=== PATIENT | male | born 1940 | race Caucasian/White ===

== ENCOUNTER 2016-12-17 16:14 | Emergency (ER) | payer OTHER, BC ==
[~2016-12-17] VITALS: Ht 188 cm; Wt 106.8 kg
[~2016-12-17 16:14] MED LIST: ALBU18002 INH; ALPR0.5T PO; CLON0.2T PO; FELO1TAB7 PO; FOLI1TAB7 PO; LISI-788 PO; METH15TA2 PO; OXYC-57 PO; [UNRECOGNIZED DRUG - CODE] PO
[2016-12-17 16:21] VITALS: BP 148/84; PULSE 55; TEMP 36.5; O2SAT 94; Ht 188 cm; Wt 106.8 kg
[2016-12-17] MEDS ORDERED: OXYCODONE HCL IR 5 MG TAB (IMMEDIATE RELEASE) PO STA ×2 (16:40→17:58)
--- NOTE | 2016-12-17 16:41 | EMERGENCY ROOM VISIT NOTE ---
History First contact with patient: 16:30 Chief Complaint: FALL Stated Complaint: FELL,POSSIBLE BROKEN RIBS History of Present Illness The patient is a 76 year old male who presents to the Emergency Room via private vehicle coming by with complaints of "fell, possible broken ribs". Patient states that earlier today he was at [place] and missed a curb when stepping down. He states that he then fell onto his left side and points to his left lateral rib cage as a location of the pain. He rates the pain as a 10/ 10. He denies any headache, neck pain, loss of consciousness, chest pain, shortness of breath, abdominal pain. Patient also points to small bruise on the ventral aspect of the left proximal hand but notes no pain. Review of Systems A complete 10-point Review of Systems was discussed with the patient, with pertinent positives and negatives listed in the History of Present Illness. All remaining Review of Systems questions can be considered negative unless otherwise specified. Past Medical/Surgical History Medical Problems: (1) A-fib (2) Anemia (3) Asthma (4) Atrial fibrillation (5) Atrial flutter (6) RA (rheumatoid arthritis) Family History FH: Alzheimers disease FHx: cancer FHx: heart disease Hypertension Social History Smoking Status: Never Smoker Drug Use: none Marital Status: Housing Status: lives with significant other Occupation Status: retired Current/Historical Medications Scheduled Alprazolam (Xanax), 0.5 MG PO PRN Clonidine Hcl (Catapres), 1 TAB PO BID Felodipine (Plendil), 2.5 MG PO HS Folic Acid (Folvite), 1 MG PO DAILY Lisinopril/Hctz (Zestoretic 20MG/25MG), 0.5 TAB PO DAILY Methotrexate (Trexall), 15 MG PO WK Nizatidine (Axid *), 150 MG PO DHS Scheduled PRN Albuterol Sulfate (Proair Respiclick), 2 PUFFS INH UD PRN for Wheezing Oxycodone/Acetaminophen 5MG/325MG (Percocet 5MG/325MG), 1 TABLET PO UD PRN for Pain Allergies Coded Allergies: NSAIDs (Verified Allergy, Severe, BLEEDING, 10/01/16) Latex (Verified Allergy, Intermediate, REDNESS ON SKIN, 10/01/16) Aspirin (Verified Adverse Reaction, Severe, BLEEDING, 10/01/16) Physical Exam Vital Signs Date Time Temp Pulse Resp B/P Pulse Ox O2 Delivery O2 Flow Rate FiO2 12/17/16 16:21 36.5 55 18 148/84 94 Room Air Physical Exam VITAL SIGNS - Vital signs and nursing notes were reviewed. Patient is afebrile , hypertensive at 140/84, non-tachycardic and saturating well on room air is 94% . GENERAL -76-year-old male appearing his stated age who is in no acute distress. Communicates well with provider and answers questions appropriately. SKIN - Without rashes. No breaks in the integument. HEAD - NC/AT. No evidence of trauma to the head. EYES - PERRL with EOMI bilaterally. Sclera anicteric. Palpebral conjunctiva pink and moist with no injection noted. EARS - No deformities of external structures noted on gross examination bilaterally. No hemotympanum. NOSE - Midline and without cyanosis. No epistaxis or purulent drainage noted. NECK - Neck with FROM. Supple to palpation. No lymphadenopathy noted. No nuchal rigidity. No C-spine tenderness. No thoracic or lumbar spinous processes tenderness. LUNGS - Chest wall symmetric without accessory muscle use, intercostals retractions, or central cyanosis. Normal vesicular breath sounds CTA B/L. No wheezes, rales, or rhonchi appreciated. CARDIAC - RRR with S1/S2. No murmur, rubs, or gallops appreciated. ABDOMEN - Abdominal contour without pulsations or visible masses. BS normoactive all four quadrants. No tenderness, palpable masses, hepatosplenomegaly, or ascites noted. There was slight tenderness to the left inguinal region, favoring the left thigh. Genitalia exam unremarkable. EXTREMITIES - No clubbing or peripheral cyanosis. No pretibial edema present. As early intact in the extremities. +5/5 strength noted in UE/LE bilaterally. Patient is able to axial load. No tenderness with pelvic rock. No hip tenderness. NEUROLOGIC - Cranial nerves II through XII grossly intact. Sensory intact to light touch throughout. Medical Decision & Procedures ER Provider Diagnostic Interpretation: PELVIS 1 OR 2 VIEW ROUTINE CLINICAL HISTORY: Left groin pain COMPARISON STUDY: None. FINDINGS: No fracture or dislocation within the pelvis or hips. The sacrum is intact. Soft tissues are unremarkable. Mild osteoarthritis within the bilateral hips. IMPRESSION: No fracture or dislocation within the pelvis or hips. Electronically signed by: Bobby Bobo M.D. 12/17/2016 7:18 PM Dictated Date/Time: 12/17/2016 7:16 PM LEFT RIBS UNILATERAL WITH PA CHEST CLINICAL HISTORY: Left rib pain s/p fall COMPARISON STUDY: Chest 10/01/2016. 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 The heart is stable in size. The lungs are clear. No pleural effusions. No pneumothorax. There is a nondisplaced left anterolateral ninth rib fracture IMPRESSION: Nondisplaced left ninth rib fracture. No pneumothorax. Electronically signed by: Bobby Bobo M.D. 12/17/2016 6:09 PM Dictated Date/Time: 12/17/2016 6:06 PM Medications Administered Medications (Trade) Dose Ordered Sig/Mara Route Start Time Stop Time Status Last Admin Dose Admin Oxycodone HCl (Roxicodone Immediate Rel Tab) 5 mg NOW STAT PO 12/17/16 16:40 12/17/16 16:41 DC 12/17/16 17:28 5 MG Oxycodone HCl (Roxicodone Immediate Rel Tab) 5 mg NOW STAT PO 12/17/16 17:58 12/17/16 17:59 DC 12/17/16 18:19 5 MG Medical Decision Patient was seen and evaluated as above. After obtaining a thorough history and physical examination radiographs was obtained of the anterior chest as well as left rib cage. Patient was given 1 OxyIR for his pain, and then reevaluated and noted to be chronically taking opioids for his RA and was given another 5 mg. He was then also evaluated by my attending. The decision was made to add a pelvis view as the patient complained of new onset left groin pain. He did consent to a genitalia exam which was unremarkable. There was reproducible palpation overlying the left medial superior thigh in the left groin. Consistent with a likely pulled muscle in this region. Pelvis radiograph negative for acute injury. Ribs revealed an acute nondisplaced ninth rib fracture. Patient was educated upon these findings and given an incentive spirometer. He was educated upon management and noted to have a chronic prescription for pain meds therefore declined any today. He is to follow-up with his family doctor for the ribs and given the number for administrative specialist for the groin injury. He was educated upon management, had questions answered prior to discharge, was educated upon worrisome symptoms in which to return and was discharged home with driving in good condition. In the evaluation treatment this patient following differential diagnoses were entertained: Rib fracture, pneumothorax, contusion, testicular hernia, genital abnormalities, pulled muscle, among others. I do not suspect any emergent cause of the patient's pain at this time. [place] Drug Monitoring Program Search Results: patient reviewed within database, no issues identified Impression Primary Impression: Fall Additional Impressions: Left groin pain Left rib fracture Departure Information Dispostion Home / Self-Care Condition GOOD Referrals Misael Zeng M.D. (PCP) Emilio Thorne M.D. Patient Instructions My [facility] Additional Instructions You have been treated in the Emergency Department for left rib fracture and left groin pain. You have received pain medicine in the emergency department which impairs your ability to operate a vehicle. It is illegal for you to drive after receiving these medicines. You may continue your prescribed pain medication For pain control, you can use the following [id number] medicines (if >12 yo): - Regular strength (325mg/tab) Tylenol (acetaminophen) 2 tabs every 4-6 hours as needed. Do not exceed 12 tablets in a 24 hour period. Avoid taking more than 4 grams (4000 mg) of Tylenol per day. This includes any other sources of acetaminophen you may take on a regular basis. If this is an acute injury, ice can be applied to the area of pain for the first 3 days to help decrease pain and inflammation. After the first 3 days, a heating pad can be used over the area for continued soothing relief. To minimize your discomfort, you can hug a pillow while coughing or sneezing. Additionally, you should continue to force yourself to take nice, deep breaths. Full expansion of the lungs is necessary to prevent the accumulation of fluid in the lung tissue and development of pneumonia. You should schedule a follow-up appointment with your orthopedic surgeon regarding your left groin pain. Please also schedule follow-up with your family doctor for your rib fracture. Please use the Incentive Spirometer several times per hour while awake to help prevent the development of pneumonia. Return to the Emergency Department if your current symptoms worsen despite treatment course outlined above, or if you develop any of the following symptoms : intractable pain despite aforementioned treatment course, development of a wet cough, bloody cough, fever, chills, or increased shortness of breath. Problem Qualifiers
--- NOTE | 2016-12-17 18:00 | EMERGENCY ROOM VISIT NOTE ---
ED Visit Note First contact with patient: 16:30 I have seen and examined this patient with Pipe Hernandez and generally agree with the treatment plan as discussed. Problem List Medical Problems: (1) A-fib Status: Resolved (2) Anemia Status: Resolved (3) Asthma Status: Chronic (4) RA (rheumatoid arthritis) Status: Chronic Current/Historical Medications Scheduled Alprazolam (Xanax), 0.5 MG PO PRN Clonidine Hcl (Catapres), 1 TAB PO BID Felodipine (Plendil), 2.5 MG PO HS Folic Acid (Folvite), 1 MG PO DAILY Lisinopril/Hctz (Zestoretic 20MG/25MG), 0.5 TAB PO DAILY Methotrexate (Trexall), 15 MG PO WK Nizatidine (Axid *), 150 MG PO DHS Scheduled PRN Albuterol Sulfate (Proair Respiclick), 2 PUFFS INH UD PRN for Wheezing Oxycodone/Acetaminophen 5MG/325MG (Percocet 5MG/325MG), 1 TABLET PO UD PRN for Pain Allergies Coded Allergies: NSAIDs (Verified Allergy, Severe, BLEEDING, 10/01/16) Latex (Verified Allergy, Intermediate, REDNESS ON SKIN, 10/01/16) Aspirin (Verified Adverse Reaction, Severe, BLEEDING, 10/01/16) Vital Signs Date Time Temp Pulse Resp B/P Pulse Ox O2 Delivery O2 Flow Rate FiO2 12/17/16 16:21 36.5 55 18 148/84 94 Room Air Medications Administered Medications (Trade) Dose Ordered Sig/Mara Route Start Time Stop Time Status Last Admin Dose Admin Oxycodone HCl (Roxicodone Immediate Rel Tab) 5 mg NOW STAT PO 12/17/16 16:40 12/17/16 16:41 DC 12/17/16 17:28 5 MG Departure Information Referrals Misael Zeng M.D. (PCP) Patient Instructions My [facility]
--- NOTE | 2016-12-17 18:10 | DIAGNOSTIC IMAGING REPORT ---
LEFT RIBS UNILATERAL WITH PA CHEST CLINICAL HISTORY: Left rib pain s/p fall COMPARISON STUDY: Chest 10/01/2016. 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 The heart is stable in size. The lungs are clear. No pleural effusions. No pneumothorax. There is a nondisplaced left anterolateral ninth rib fracture IMPRESSION: Nondisplaced left ninth rib fracture. No pneumothorax. Electronically signed by: Bobby Bobo M.D. 12/17/2016 6:09 PM Dictated Date/Time: 12/17/2016 6:06 PM
--- NOTE | 2016-12-17 19:19 | DIAGNOSTIC IMAGING REPORT ---
PELVIS 1 OR 2 VIEW ROUTINE CLINICAL HISTORY: Left groin pain COMPARISON STUDY: None. FINDINGS: No fracture or dislocation within the pelvis or hips. The sacrum is intact. Soft tissues are unremarkable. Mild osteoarthritis within the bilateral hips. IMPRESSION: No fracture or dislocation within the pelvis or hips. Electronically signed by: Bobby Bobo M.D. 12/17/2016 7:18 PM Dictated Date/Time: 12/17/2016 7:16 PM
[2017-03-25] MEDS ORDERED: OXYC1TAB3 PO (04:38)
== END 2016-12-17 19:53 | disposition home or self-care (01) ==
LOC: C.EDB 16:15 → C.EDD 19:53
DX: S22.32XA Fracture of one rib, left side, initial encounter for closed fracture (principal); R10.30 Lower abdominal pain, unspecified; I48.91 Unspecified atrial fibrillation; M06.9 Rheumatoid arthritis, unspecified; J45.909 Unspecified asthma, uncomplicated; W10.1XXA Fall (on)(from) sidewalk curb, initial encounter; Z79.899 Other long term (current) drug therapy; Z88.6 Allergy status to analgesic agent; Z91.040 Latex allergy status; Z82.0 Family history of epilepsy and other diseases of the nervous system; Z82.49 Family history of ischemic heart disease and other diseases of the circulatory system

== ENCOUNTER 2017-02-11 19:03 | Emergency (ER) | payer OTHER, BC ==
[~2017-02-11] VITALS: Ht 188 cm; Wt 107.2 kg
[2017-02-11 19:12] VITALS: TEMP 36.6; Ht 188 cm; Wt 107.2 kg
--- NOTE | 2017-02-11 20:25 | EMERGENCY ROOM VISIT NOTE ---
ED Visit Note First contact with patient: 19:22 Staff note: I have reviewed the Patients chart and have discussed this case with my PA. I generally agree with the ED note and findings.
[2017-02-11 20:31] VITALS: BP 152/82; PULSE 55; O2SAT 95
[2017-02-11] MEDS ORDERED: LISI20TA3 PO (20:34)
[2017-02-11] MEDS ORDERED: SENN-61 PO (20:34)
[2017-02-11] MEDS ORDERED: AMIO200T4 PO (20:34)
[2017-02-11] MEDS ORDERED: NIZA150C3 PO (20:38)
--- NOTE | 2017-02-11 20:42 | EMERGENCY ROOM VISIT NOTE ---
ED Visit Note First contact with patient: 19:22 CHIEF COMPLAINT: Right lower leg pain 3 weeks HISTORY OF PRESENT ILLNESS: Patient is a 76-year-old white male who presents emergency department for evaluation of right lower leg pain 3-3 and half weeks. His initial injury occurred around January 18. He states that he swung his legs out of bed like he normally does, and went to stand and had an acute sharp knifelike pain in the lateral aspect of the right leg. He was seen at [facility] and diagnosed with a strain. He was referred to physical therapy. He has been going 3 times weekly for the last 3-1/2 weeks. He reports multiple modalities including stretching, massage and manipulation, ice and heat therapy in addition to taping. He is on Percocet 10 mg tablets and is using 2-3 tablets daily for his pain. He states that the pain is severe when he wakes up in the morning, improved slightly throughout the day, then worsened again in the evening. He is frustrated because he feels like he "starts over at square one every morning." He feels like he should be getting better. He has seen his primary care provider who have encouraged him to follow with orthopedics. He reports that he cannot get into see his established orthopedic surgeon, Dr. Thorne until his standing appointment in April. They are traveling to [place] next Monday and are concerned about his ability to travel. REVIEW OF SYSTEMS: Review of systems as per HPI. All other systems reviewed were negative. At least 6 systems reviewed. PMH: Electronic medical records are reviewed and summarized as above/below. See Problem List. SOCIAL HISTORY: Patient lives at home with his . He does not smoke, is retired.. PHYSICAL EXAM: Vital Signs: Reviewed Nurse's notes. CONSTITUTIONAL: Patient is a well-appearing 76-year-old white male who is awake and alert and laying on the gurney in no acute distress. EXTREMITIES: Examination of the right lower extremity show taping to the lateral aspect of the calf. Trace pitting edema is noted in the ferro and pretibial area. There is no ankle joint or knee joint effusion palpable. Knee is nontender to palpation and range of motion is full. Ankle is nontender to palpation and range of motion is full. There is no reproducible tenderness along the lateral aspect of the right tib-fib region. The calves are soft and nontender. No palpable cords. No erythema, cyanosis, rashes or lesions. Pulses equal bilaterally. Normal gait. EMERGENCY DEPARTMENT COURSE: The patient was seen and evaluated as above. Old records were reviewed. I was able to discuss the patient with his orthopedic surgeon, Dr. Thorne, who was on-call for the emergency department. He suspected tendinitis and recommended a Medrol Dosepak. I discussed this with the patient and he then acknowledge that he had forgotten to mention that his primary care provider, Dr. Zeng, had provided him with a prescription for prednisone which he took about a week ago without relief of his symptoms. The patient's mechanism of injury is not consistent with trauma and it was felt that fracture was unlikely and that radiographs would be of limited benefit. His presentation is also not consistent with DVT or other vascular process and ultrasound was also felt to be unnecessary at this time. Expected management of his expected soft tissue injury including sprain, strain or tendinitis was discussed with him at length. I do not suspect lumbar radiculopathy. He was encouraged to continue his Percocet as prescribed. He has crutches at home that he can use. They apparently also had a walking boot which he can try. He was encouraged to follow up with [facility] on Monday for further care and evaluation. The patient expressed understanding of this and was agreeable. He was discharged home with his in good condition. Problem List Medical Problems: (1) A-fib Status: Resolved (2) Anemia Status: Resolved (3) Asthma Status: Chronic (4) Atrial fibrillation Status: Resolved (5) Atrial flutter Status: Resolved (6) Dyspnea on exertion Status: Resolved (7) Fall Status: Resolved (8) Generalized weakness Status: Resolved (9) Hypertension Status: Chronic (10) Left groin pain Status: Resolved (11) Left rib fracture Status: Resolved (12) Pharyngitis Status: Resolved (13) RA (rheumatoid arthritis) Status: Chronic (14) Symptomatic bradycardia Status: Resolved Current/Historical Medications Scheduled Alprazolam (Xanax), 0.5 MG PO PRN Amiodarone Hcl (Cordarone), 200 MG PO DAILY Clonidine Hcl (Catapres), 1 TAB PO BID Felodipine (Plendil), 2.5 MG PO HS Folic Acid (Folvite), 1 MG PO DAILY Lisinopril (Prinivil), 20 MG PO QAM Lisinopril/Hctz (Zestoretic 20MG/25MG), 0.5 TAB PO DAILY Methotrexate (Trexall), 15 MG PO WK Nizatidine (Nizatidine), 150 MG PO HS Senna (Senokot), 1 TAB PO DAILY Scheduled PRN Albuterol Sulfate (Proair Respiclick), 2 PUFFS INH UD PRN for Wheezing Oxycodone/Acetaminophen 5MG/325MG (Percocet 5MG/325MG), 1 TABLET PO UD PRN for Pain Allergies Coded Allergies: NSAIDs (Verified Allergy, Severe, BLEEDING, 02/11/17) Latex (Verified Allergy, Intermediate, REDNESS ON SKIN, 02/11/17) Aspirin (Verified Adverse Reaction, Severe, BLEEDING, 02/11/17) Vital Signs Date Time Temp Pulse Resp B/P Pulse Ox O2 Delivery O2 Flow Rate FiO2 02/11/17 20:31 55 16 152/82 95 Room Air 02/11/17 19:12 36.6 66 18 168/84 97 Room Air Departure Information Impression Primary Impression: Leg pain, right Referrals Misael Zeng M.D. (PCP) Patient Instructions My [facility] Additional Instructions Continue current medications. Keep your physical therapy appointments as scheduled. Use your crutches or walking boot if desired. Rest and elevate your injury. Call [facility] on Monday to arrange a follow-up appointment.
[2017-03-25] MEDS ORDERED: OXYC1TAB3 PO (04:38)
== END 2017-02-11 20:50 | disposition home or self-care (01) ==
LOC: C.EDB 19:04 → C.EDD 20:50
DX: M79.604 Pain in right leg (principal); J45.909 Unspecified asthma, uncomplicated; I10 Essential (primary) hypertension; M06.9 Rheumatoid arthritis, unspecified

== ENCOUNTER → 2017-03-13 | Outpatient (CLI) | payer OTHER, BC ==
[~2017-03-13] MED LIST changes: +AMIO200T4 PO; +LISI20TA3 PO; +NIZA150C3 PO; +OXYC1TAB3 PO; +SENN-61 PO; -[UNRECOGNIZED DRUG - CODE] PO
== END | disposition home or self-care (01) ==
LOC: C.RDSM 08:00
PROVIDERS: ATTEND Physical Medicine & Rehabilitation Sports Medicine
DX: M17.0 Bilateral primary osteoarthritis of knee (principal)

== ENCOUNTER → 2017-03-14 | Outpatient (CLI) | payer OTHER, BC ==
[2017-03-14 12:29] LABS: BASO % 0.1 %; BASO ABS # 0.01 K/uL (0-0.2); COMPLETE YES; HEMATOCRIT 43.2 % (42-52); IG% 0.3 %; LYMPH % 4.1 %; MEAN CELL VOLUME 90.2 fL (80-100); MEAN CORPUSCULAR HEMOGLOBIN 29.6 pg (25-34); MEAN CORPUSCULAR HGB CONC 32.9 g/dl (32-36); MEAN PLATELET VOLUME 11.4 fL (7.4-10.4); MONO % 4.9 %; NEUT % 90.6 %; PLATELET COUNT 298 K/uL (130-400); RED BLOOD COUNT 4.79 M/uL (4.7-6.1); WHITE BLOOD COUNT 19.34 K/uL (4.8-10.8)
[2017-03-14 13:05] LABS: ALT/SGPT 22 U/L (12-78); AST/SGOT 18 U/L (15-37); BLOOD UREA NITROGEN 13 mg/dl (7-18); BUN/CREATININE RATIO 11.7 (10-20); CALCIUM 8.7 mg/dl (8.5-10.1); CARBON DIOXIDE 31 mmol/L (21-32); CHLORIDE 102 mmol/L (98-107); GLUCOSE 140 mg/dl (70-99); POTASSIUM 3.9 mmol/L (3.5-5.1); SODIUM 139 mmol/L (136-145)
[2017-03-14 13:17] LABS: ALB/GLOB RATIO 1.1 (0.9-2); ALKALINE PHOSPHATASE 64 U/L (45-117); CHOLESTEROL 213 mg/dl (0-200); CHOLESTEROL/HDL RATIO 2.4; HDL CHOLESTEROL 89 mg/dl; LDL CHOLESTEROL CALCULATED 109 mg/dl; THYROID STIMULATING HORMONE 0.558 uIu/ml (0.300-4.500); TRIGLYCERIDES 75 mg/dl (0-150); VERY LOW DENSITY LIPOPROT CALC 15 mg/dl
--- NOTE | 2017-03-21 11:45 | CODING QUERY MEDICAL NECESSITY ---
SUPPORTING DIAGNOSIS NEEDED Dr. Zeng, A supporting diagnosis is required for the test/procedure performed on this patient in order for us to be reimbursed by the patient's insurance. Please provide a supporting diagnosis for the following test/procedure listed below next to the test name along with your signature. *If there is no additional diagnosis for this patient that would support the following test/procedure please document that below next to the test/procedure. Test(s)/Procedure(s) that require a supporting diagnosis: * ([id number]) VITAMIN D ASSAY DIAGNOSIS: DATE OF SERVICE: 03/14/17 Provider Signature: Date: Thank you Clifton Lambert [facility] Information Management Once completed, please kindly fax back to [phone] For questions please call [phone]
== END | disposition home or self-care (01) ==
LOC: C.LAB1850 10:04
PROVIDERS: ATTEND Internal Medicine Cardiovascular Disease
DX: I48.0 Paroxysmal atrial fibrillation (principal); I10 Essential (primary) hypertension; E78.5 Hyperlipidemia, unspecified; S22.39XA Fracture of one rib, unspecified side, initial encounter for closed fracture; X58.XXXA Exposure to other specified factors, initial encounter; I65.29 Occlusion and stenosis of unspecified carotid artery; R60.9 Edema, unspecified; M06.9 Rheumatoid arthritis, unspecified; M19.90 Unspecified osteoarthritis, unspecified site; E55.9 Vitamin D deficiency, unspecified

== ENCOUNTER 2017-03-24 21:10 | Emergency (ER) | payer OTHER, BC ==
[~2017-03-24] VITALS: Ht 188 cm; Wt 107.0 kg
[~2017-03-24 21:10] MED LIST changes: -OXYC1TAB3 PO
[2017-03-24 21:13] VITALS: TEMP 36.7; Ht 188 cm; Wt 107.0 kg
--- NOTE | 2017-03-24 21:38 | DIAGNOSTIC IMAGING REPORT ---
RIGHT KNEE 3 VIEWS CLINICAL HISTORY: Right knee pain and swelling. COMPARISON: Right knee radiograph March 13, 2017. FINDINGS: Alignment of the right knee is anatomic. There is no acute fracture or suspicious lesion. There is a moderate to large right knee joint effusion. Moderate osteoarthritis of the patellofemoral compartment is noted. There is minimal chondrocalcinosis. There is mild osteophytosis within the lateral and medial compartments. IMPRESSION: 1. No acute fracture. 2. Moderate to large right knee joint effusion. 3. Moderate osteoarthritis within the right knee, most pronounced within the patellofemoral compartment. Electronically signed by: Fidel Melgar M.D. 03/24/2017 9:37 PM Dictated Date/Time: 03/24/2017 9:33 PM
[2017-03-24] MEDS ORDERED: ONDANSETRON INJ 2 MG/ML 2 ML VIAL IV STA (21:40)
[2017-03-24] MEDS ORDERED: MoRPHine SULFATE 4 MG/ML 1 ML CARP\\VIAL IV STA ×2 (21:40→22:29)
[2017-03-24] MEDS ORDERED: XYLOCAINE 1%/SOD BICARB 20 ML VIAL INFIL ONE (21:45)
[2017-03-24 22:13] LABS: BASO % 0.4 %; BASO ABS # 0.05 K/uL (0-0.2); COMPLETE YES; EOS % 0.8 %; HEMATOCRIT 46.8 % (42-52); IG% 0.2 %; LYMPH % 13.7 %; LYMPH ABS # 1.84 K/uL (1.2-3.4); MEAN CELL VOLUME 89.8 fL (80-100); MEAN CORPUSCULAR HEMOGLOBIN 28.6 pg (25-34); MEAN CORPUSCULAR HGB CONC 31.8 g/dl (32-36); MEAN PLATELET VOLUME 10.8 fL (7.4-10.4); MONO % 10.3 %; NEUT % 74.6 %; PLATELET COUNT 316 K/uL (130-400); RED BLOOD COUNT 5.21 M/uL (4.7-6.1); WHITE BLOOD COUNT 13.46 K/uL (4.8-10.8)
[2017-03-24 22:30] LABS: BLOOD UREA NITROGEN 19 mg/dl (7-18); BUN/CREATININE RATIO 15.4 (10-20); C-REACTIVE PROTEIN < 0.29 mg/dl (0-0.29); CARBON DIOXIDE 31 mmol/L (21-32); CHLORIDE 100 mmol/L (98-107); GLUCOSE 99 mg/dl (70-99); POTASSIUM 3.6 mmol/L (3.5-5.1); SODIUM 138 mmol/L (136-145); URIC ACID 5.3 mg/dl (2.6-7.2)
[2017-03-24 22:31] LABS: CALCIUM 8.8 mg/dl (8.5-10.1)
[2017-03-24] MEDS ORDERED: OXYCODONE IR HOME PACK PO ONE (23:00)
[2017-03-24] MEDS ORDERED: OXYC1TAB3 PO (23:02)
[2017-03-24 23:17] LABS: LYME DISEASE AB IGG NEG (NEG); LYME DISEASE AB IGM NEG (NEG)
--- NOTE | 2017-03-24 23:20 | EMERGENCY ROOM VISIT NOTE ---
ED Visit Note First contact with patient: 21:27 I have seen and examined this patient with Anitha Dumont and generally agree with the treatment plan as discussed. Problem List Medical Problems: (1) A-fib Status: Resolved (2) Anemia Status: Resolved (3) Asthma Status: Chronic (4) Atrial fibrillation Status: Resolved (5) Atrial flutter Status: Resolved (6) Dyspnea on exertion Status: Resolved (7) Fall Status: Resolved (8) Generalized weakness Status: Resolved (9) Hypertension Status: Chronic (10) Left groin pain Status: Resolved (11) Left rib fracture Status: Resolved (12) Pharyngitis Status: Resolved (13) RA (rheumatoid arthritis) Status: Chronic (14) Symptomatic bradycardia Status: Resolved Current/Historical Medications Scheduled Alprazolam (Xanax), 0.5 MG PO PRN Amiodarone Hcl (Cordarone), 200 MG PO DAILY Clonidine Hcl (Catapres), 1 TAB PO BID Felodipine (Plendil), 2.5 MG PO HS Folic Acid (Folvite), 1 MG PO DAILY Lisinopril (Prinivil), 20 MG PO QAM Lisinopril/Hctz (Zestoretic 20MG/25MG), 0.5 TAB PO DAILY Methotrexate (Trexall), 15 MG PO WK Nizatidine (Nizatidine), 150 MG PO HS Senna (Senokot), 1 TAB PO DAILY Scheduled PRN Albuterol Sulfate (Proair Respiclick), 2 PUFFS INH UD PRN for Wheezing Oxycodone Immediate Rel Tab (Roxicodone Ir), 1-2 TAB PO Q4H PRN for Severe Pain Oxycodone/Acetaminophen 5MG/325MG (Percocet 5MG/325MG), 1 TABLET PO UD PRN for Pain Allergies Coded Allergies: NSAIDs (Verified Allergy, Severe, BLEEDING, 02/11/17) Latex (Verified Allergy, Intermediate, REDNESS ON SKIN, 02/11/17) Aspirin (Verified Adverse Reaction, Severe, BLEEDING, 02/11/17) Vital Signs Date Time Temp Pulse Resp B/P (MAP) Pulse Ox O2 Delivery O2 Flow Rate FiO2 03/24/17 23:35 43 16 164/84 95 Room Air 03/24/17 22:20 51 18 192/95 94 Room Air 03/24/17 21:13 36.7 57 18 194/93 95 Room Air Laboratory Results 03/24/17 22:05 Red Blood Count 5.21, Mean Corpuscular Volume 89.8, Mean Corpuscular Hemoglobin 28.6, Mean Corpuscular Hemoglobin Concent 31.8, Mean Platelet Volume 10.8, Neutrophils (%) (Auto) 74.6, Lymphocytes (%) (Auto) 13.7, Monocytes (%) (Auto) 10.3, Eosinophils (%) (Auto) 0.8, Basophils (%) (Auto) 0.4, Neutrophils # (Auto ) 10.05, Lymphocytes # (Auto) 1.84, Monocytes # (Auto) 1.38, Eosinophils # (Auto ) 0.11, Basophils # (Auto) 0.05 03/24/17 22:05 Test 03/24/17 22:05 White Blood Count 13.46 K/uL (4.8-10.8) Red Blood Count 5.21 M/uL (4.7-6.1) Hemoglobin 14.9 g/dL (14.0-18.0) Hematocrit 46.8 % (42-52) Mean Corpuscular Volume 89.8 fL (80-100) Mean Corpuscular Hemoglobin 28.6 pg (25-34) Mean Corpuscular Hemoglobin Concent 31.8 g/dl (32-36) Platelet Count 316 K/uL (130-400) Mean Platelet Volume 10.8 fL (7.4-10.4) Neutrophils (%) (Auto) 74.6 % Lymphocytes (%) (Auto) 13.7 % Monocytes (%) (Auto) 10.3 % Eosinophils (%) (Auto) 0.8 % Basophils (%) (Auto) 0.4 % Neutrophils # (Auto) 10.05 K/uL (1.4-6.5) Lymphocytes # (Auto) 1.84 K/uL (1.2-3.4) Monocytes # (Auto) 1.38 K/uL (0.11-0.59) Eosinophils # (Auto) 0.11 K/uL (0-0.5) Basophils # (Auto) 0.05 K/uL (0-0.2) RDW Standard Deviation 48.6 fL (36.4-46.3) RDW Coefficient of Variation 15.0 % (11.5-14.5) Immature Granulocyte % (Auto) 0.2 % Immature Granulocyte # (Auto) 0.03 K/uL (0.00-0.02) Erythrocyte Sedimentation Rate 11 mm/hr (0-14) Anion Gap 7.0 mmol/L (3-11) Est Creatinine Clear Calc Drug Dose 68.3 ml/min Estimated GFR () 67.7 Estimated GFR (Non- 58.4 BUN/Creatinine Ratio 15.4 (10-20) Uric Acid 5.3 mg/dl (2.6-7.2) Calcium Level 8.8 mg/dl (8.5-10.1) C-Reactive Protein < 0.29 mg/dl (0-0.29) Lyme Disease IgG Antibody NEG (NEG) Lyme Disease IgM Antibody NEG (NEG) Medications Administered Medications (Trade) Dose Ordered Sig/Mara Route Start Time Stop Time Status Last Admin Dose Admin Morphine Sulfate (MoRPHine SULFATE INJ) 4 mg NOW STAT IV 03/24/17 21:40 03/24/17 21:45 DC 03/24/17 22:13 4 MG Ondansetron HCl (Zofran Inj) 4 mg NOW STAT IV 03/24/17 21:40 03/24/17 21:45 DC 03/24/17 22:13 4 MG Morphine Sulfate (MoRPHine SULFATE INJ) 4 mg NOW STAT IV 03/24/17 22:29 03/24/17 22:30 DC 03/24/17 22:33 4 MG Oxycodone HCl (Roxicodone Immediate Rel 5MG Home Pack) 1 homepack UD ONCE PO 03/24/17 23:00 03/24/17 23:01 DC 03/24/17 23:25 1 HOMEPACK Departure Information Impression Primary Impression: Tear of meniscus of knee Dispostion Home / Self-Care Condition GOOD Prescriptions Oxycodone Immediate Rel Tab (ROXICODONE IR) 5 Mg Tab 1-2 TAB PO Q4H Y for Severe Pain, #15 TAB initial course Prov: Anya Dumont .DAVINA 03/25/17 Referrals Misael Zeng M.D. (PCP) Forms HOME CARE DOCUMENTATION FORM, IMPORTANT VISIT INFORMATION Patient Instructions My [facility], ED Meniscal Injury Knee Poss
[2017-03-24 23:35] VITALS: BP 164/84; PULSE 43; O2SAT 95
--- NOTE | 2017-03-25 02:36 | EMERGENCY ROOM VISIT NOTE ---
History First contact with patient: 21:27 Chief Complaint: KNEEPAIN Stated Complaint: KNEE INJURY, CAN'T STAND History of Present Illness The patient is a 76 year old male who presents to the Emergency Room with complaints of sudden onset of right knee pain and swelling today. Patient states he walked downhill to cut the grass and then walked up and then took a nap and woke up and his knee was quite swollen and painful. No direct injury to the area. He describes pain as severe, 8 out of 10 worse with movement and better with rest. Patient follows at Dr. Thorne. He's had prior knee surgeries and received steroids injections. Patient denies fever, chills, history of gout, tick bites, myalgias, arthralgias, cold symptoms, numbness, tingling. No direct injury to the area. No redness to the knee. Review of Systems See HPI for pertinent positives & negatives. A total of 10 systems reviewed and were otherwise negative. Past Medical/Surgical History Medical Problems: (1) A-fib (2) Anemia (3) Anxiety State Nos (4) Asthma (5) Atrial fibrillation (6) Atrial flutter (7) Dyspnea on exertion (8) Fall (9) Generalized weakness (10) Hypertension (11) Left groin pain (12) Left rib fracture (13) Pharyngitis (14) RA (rheumatoid arthritis) (15) Symptomatic bradycardia Family History FH: Alzheimers disease FHx: cancer FHx: heart disease Hypertension Social History Smoking Status: Never Smoker Drug Use: none Marital Status: Housing Status: lives with significant other Occupation Status: retired Current/Historical Medications Scheduled Alprazolam (Xanax), 0.5 MG PO PRN Amiodarone Hcl (Cordarone), 200 MG PO DAILY Clonidine Hcl (Catapres), 1 TAB PO BID Felodipine (Plendil), 2.5 MG PO HS Folic Acid (Folvite), 1 MG PO DAILY Lisinopril (Prinivil), 20 MG PO QAM Lisinopril/Hctz (Zestoretic 20MG/25MG), 0.5 TAB PO DAILY Methotrexate (Trexall), 15 MG PO WK Nizatidine (Nizatidine), 150 MG PO HS Senna (Senokot), 1 TAB PO DAILY Scheduled PRN Albuterol Sulfate (Proair Respiclick), 2 PUFFS INH UD PRN for Wheezing Oxycodone Immediate Rel Tab (Roxicodone Ir), 1-2 TAB PO Q4H PRN for Severe Pain Oxycodone/Acetaminophen 5MG/325MG (Percocet 5MG/325MG), 1 TABLET PO UD PRN for Pain Allergies Coded Allergies: NSAIDs (Verified Allergy, Severe, BLEEDING, 02/11/17) Latex (Verified Allergy, Intermediate, REDNESS ON SKIN, 02/11/17) Aspirin (Verified Adverse Reaction, Severe, BLEEDING, 02/11/17) Physical Exam Vital Signs Date Time Temp Pulse Resp B/P Pulse Ox O2 Delivery O2 Flow Rate FiO2 03/24/17 23:35 43 16 164/84 95 Room Air 03/24/17 22:20 51 18 192/95 94 Room Air 03/24/17 21:13 36.7 57 18 194/93 95 Room Air Pain Rating (0-10): 2.0 Physical Exam VITALS: Vitals are noted on the nurse's note and reviewed by myself. Vital signs hypertensive secondary to pain most likely GENERAL: Pleasant male who appears in pain, in no acute distress, nondiaphoretic , well-developed well-nourished. SKIN: Capillary reflex less than 2 seconds. HEENT: Normocephalic. PERRLA. EOMI. Nares patent. Mucous membranes moist. Neck is supple without nuchal rigidity. HEART: Regular rate and rhythm without murmurs gallops or rubs. LUNGS: Clear to auscultation bilaterally without wheezes, rales or rhonchi. No retractions or accessory muscle use. MUSCULOSKELETAL: No gross musculoskeletal defects. No pedal edema. No calf tenderness.The right knee is swollen. There is joint effusion present. Range of motion is limited by tenderness. Strength of the quads and hamstrings is 4/ 5. Unable to assess range of motion secondary to pain. Pedal pulses +2 equal present bilaterally. Sensation is intact. No right hip, ferro or ankle tenderness. NEURO: Patient was alert and oriented to person place and time. Normal sensation to light and sharp touch. No focal neurological deficits. Medical Decision & Procedures Laboratory Results 03/24/17 22:05 Red Blood Count 5.21, Mean Corpuscular Volume 89.8, Mean Corpuscular Hemoglobin 28.6, Mean Corpuscular Hemoglobin Concent 31.8, Mean Platelet Volume 10.8, Neutrophils (%) (Auto) 74.6, Lymphocytes (%) (Auto) 13.7, Monocytes (%) (Auto) 10.3, Eosinophils (%) (Auto) 0.8, Basophils (%) (Auto) 0.4, Neutrophils # (Auto ) 10.05, Lymphocytes # (Auto) 1.84, Monocytes # (Auto) 1.38, Eosinophils # (Auto ) 0.11, Basophils # (Auto) 0.05 03/24/17 22:05 Test 03/24/17 22:05 White Blood Count 13.46 K/uL (4.8-10.8) Red Blood Count 5.21 M/uL (4.7-6.1) Hemoglobin 14.9 g/dL (14.0-18.0) Hematocrit 46.8 % (42-52) Mean Corpuscular Volume 89.8 fL (80-100) Mean Corpuscular Hemoglobin 28.6 pg (25-34) Mean Corpuscular Hemoglobin Concent 31.8 g/dl (32-36) Platelet Count 316 K/uL (130-400) Mean Platelet Volume 10.8 fL (7.4-10.4) Neutrophils (%) (Auto) 74.6 % Lymphocytes (%) (Auto) 13.7 % Monocytes (%) (Auto) 10.3 % Eosinophils (%) (Auto) 0.8 % Basophils (%) (Auto) 0.4 % Neutrophils # (Auto) 10.05 K/uL (1.4-6.5) Lymphocytes # (Auto) 1.84 K/uL (1.2-3.4) Monocytes # (Auto) 1.38 K/uL (0.11-0.59) Eosinophils # (Auto) 0.11 K/uL (0-0.5) Basophils # (Auto) 0.05 K/uL (0-0.2) RDW Standard Deviation 48.6 fL (36.4-46.3) RDW Coefficient of Variation 15.0 % (11.5-14.5) Immature Granulocyte % (Auto) 0.2 % Immature Granulocyte # (Auto) 0.03 K/uL (0.00-0.02) Erythrocyte Sedimentation Rate 11 mm/hr (0-14) Anion Gap 7.0 mmol/L (3-11) Est Creatinine Clear Calc Drug Dose 68.3 ml/min Estimated GFR () 67.7 Estimated GFR (Non- 58.4 BUN/Creatinine Ratio 15.4 (10-20) Uric Acid 5.3 mg/dl (2.6-7.2) Calcium Level 8.8 mg/dl (8.5-10.1) C-Reactive Protein < 0.29 mg/dl (0-0.29) Lyme Disease IgG Antibody NEG (NEG) Lyme Disease IgM Antibody NEG (NEG) Medications Administered Medications (Trade) Dose Ordered Sig/Mara Route Start Time Stop Time Status Last Admin Dose Admin Morphine Sulfate (MoRPHine SULFATE INJ) 4 mg NOW STAT IV 03/24/17 21:40 03/24/17 21:45 DC 03/24/17 22:13 4 MG Ondansetron HCl (Zofran Inj) 4 mg NOW STAT IV 03/24/17 21:40 03/24/17 21:45 DC 03/24/17 22:13 4 MG Morphine Sulfate (MoRPHine SULFATE INJ) 4 mg NOW STAT IV 03/24/17 22:29 03/24/17 22:30 DC 03/24/17 22:33 4 MG Oxycodone HCl (Roxicodone Immediate Rel 5MG Home Pack) 1 homepack UD ONCE PO 03/24/17 23:00 03/24/17 23:01 DC 03/24/17 23:25 1 HOMEPACK Procedure Joint aspiration Indication: Joint effusion. Location: Knee Verbal consent was obtained after the risks and benefits were explained, including but not limited to bleeding, scarring, infection, pain, and bone/joint /nerve damage. At this time, the risks of the procedure are less than the risks of NOT performing the procedure. A time out was taken and the correct patient and site identified. The skin was prepped with betadine and a sterile field set. The wound was anesthetized with 2 ml of 1% lidocaine without epinephrine. The knee was slightly flexed and utilizing the lateral approach, insertion site 1 cm superior 1 cm medial to the superioromedial edge of the patella, 18- gauge needle was then inserted at 45 and gross blood that was dark venous in nature was aspirated. This was concerning for a meniscus injury. The needle was removed and bacitracin and bandage was applied. Joseph bandage was placed for compression and neurovascular status was rechecked after placement and is intact. Detailed wound care instructions and signs and symptoms of worsening infection reviewed with the patient. No complications and the patient tolerated the procedure well. ED Course Prior records reviewed and summarized above. Triage Nursing notes reviewed. Additional history obtained from the family. The patient's history was concerning for swelling and pain in the leg. Differential diagnosis: Etiologies such as DVT, gout, Lymes, septic joint, musculoskeletal, infection, joint effusion, trauma, lymphedema, idiopathic, CHF, as well as others were entertained.. Physical examination: The physical examination revealed no signs of infection. Neurovascularly intact. ER treatment provided: Joint aspiration as above. Morphine, Joseph bandage, prescription for cane. Patient currently has crutches On reassessment the patient felt better. Diagnostics interpreted by me: The labs revealed mild leukocytosis improved from last week CBC. Negative Bg and CRP Imaging studies: RIGHT KNEE 3 VIEWS CLINICAL HISTORY: Right knee pain and swelling. COMPARISON: Right knee radiograph March 13, 2017. FINDINGS: Alignment of the right knee is anatomic. There is no acute fracture or suspicious lesion. There is a moderate to large right knee joint effusion. Moderate osteoarthritis of the patellofemoral compartment is noted. There is minimal chondrocalcinosis. There is mild osteophytosis within the lateral and medial compartments. IMPRESSION: 1. No acute fracture. 2. Moderate to large right knee joint effusion. 3. Moderate osteoarthritis within the right knee, most pronounced within the patellofemoral compartment. This appears to be consistent with knee effusion most likely from a meniscus injury. Patient sees Dr. Thorne. He was advised to follow-up with him when he returns from [place]. He was advised to use the cane and Joseph wrap for the joint effusion. He was advised to return to the ER me for severe pain, numbness, tingling, worsening signs or symptoms or as needed. Patient was neurovascularly and neurologic intact. No fracture. Joint aspiration was grossly bloody concerning for a meniscal injury. By the evaluation outlined above emergent etiologies such as DVT, septic joint, trauma, infection, CHF, as well as others were deemed relatively unlikely. The pt informed about the findings as listed above. All questions were answered and pleased with the treatment. Return instructions were outlined and the patient was discharged in stable condition. Outpatient prescription management: OxyIR Referral: The patient was referred back to their primary care physician and orthopedics for follow-up in 2 to 3 days for a recheck of the current condition. Case reviewed with my attending. Medical Decision As above Impression Primary Impression: Effusion, right knee Additional Impression: probable right knee meniscal tear Departure Information Dispostion Home / Self-Care Condition GOOD Prescriptions Oxycodone Immediate Rel Tab (ROXICODONE IR) 5 Mg Tab 1-2 TAB PO Q4H Y for Severe Pain, #15 TAB initial course Prov: Anya Dumont .DAVINA 03/25/17 Referrals Misael Zeng M.D. (PCP) Forms HOME CARE DOCUMENTATION FORM, IMPORTANT VISIT INFORMATION Patient Instructions My [facility], ED Meniscal Injury Knee Poss Additional Instructions DO NOT drive, drink alcohol, operate machinery, or perform dangerous activities today. You were given medications in the ER that can affect your ability to safely function or operate a vehicle. Oxycodone (OxyIR) 5mg: Take 1-2 pills every four hours for breakthrough pain. Avoid alcohol, operating machinery or dangerous equipment, working on ladders or roofs, DRIVING, or situations where being under the influence may be dangerous. It is recommended to use an adld-hrd-zviysrj stool softener such as Colace, 100mg twice daily while taking this medication to avoid constipation. Acetaminophen(Tylenol) may be used for fever or pain. Use 1000mg every six hours as needed. Avoid using more than 3000mg in a 24 hour period. This medication can be taken if you need to drive, work, or perform activities which may be dangerous when taking narcotic pain medication. Ice compresses for 20 minutes at a time four times daily for 2-3 days. Use the crutches/cane as instructed. Rest and elevate your injury. Wear Joseph wrap until pain subsides. Do not have it so tight that you cannot feel your foot. Continue current medications. Return to the ER immediately for any numbness, tingling, severe pain, extreme swelling in the extremity or as needed. Call Orthopedics tomorrow to arrange follow up for your injury. Problem Qualifiers
[2017-03-25] MEDS ORDERED: OXYC1TAB3 PO (04:38)
== END 2017-03-24 23:50 | disposition home or self-care (01) ==
LOC: C.EDB 21:11 → C.EDD 23:50
DX: M25.461 Effusion, right knee (principal); I48.91 Unspecified atrial fibrillation; D64.9 Anemia, unspecified; J45.909 Unspecified asthma, uncomplicated; I10 Essential (primary) hypertension; M06.9 Rheumatoid arthritis, unspecified; R00.1 Bradycardia, unspecified; Z82.49 Family history of ischemic heart disease and other diseases of the circulatory system

== ENCOUNTER → 2017-05-10 | Outpatient (CLI) | payer OTHER, BC ==
[~2017-05-10] MED LIST changes: +OXYC1TAB3 PO
--- NOTE | 2017-05-10 12:18 | DIAGNOSTIC IMAGING REPORT ---
LOWER EXT JOINT WITHOUT HISTORY:76 years Male patient presents with right knee pain status post exiting bed. Concern for meniscal tear. COMPARISON: Right knee radiograph 03/24/2017. TECHNIQUE: Multiplanar, multisequence MRI of the right knee was performed without intravenous contrast. FINDINGS: Several of the sequences are moderately motion degraded. MENISCI: Multidirectional increased T2 signal involves the anterior horn and junction lateral meniscus compatible with complex tear extending to both the superior and inferior articular surfaces, nicely demonstrated on image 8 of the sagittal T2 series and image 17 of the coronal STIR series. No displaced fragment or para meniscal cyst is seen. Horizontal undersurface tear of the posterior horn lateral meniscus is noted on image 7 of the sagittal T2 series. There appears to be tear extending into the posterior root. Additionally, there is fraying of the free edge. There is no displaced fragment or para meniscal cyst. Blunted and torn free change posterior horn medial meniscus is noted nicely seen on image 19 of the sagittal T2 series. There is 3 mm medial extrusion of the meniscus into the meniscal gutter. No large meniscal cyst or displaced fragment identified. CRUCIATE LIGAMENTS: The anterior and posterior cruciate ligaments are normal in signal, morphology and course. Nonspecific edema seen within the intercondylar notch posteriorly. COLLATERAL LIGAMENTS: The popliteus tendon, biceps femoris tendon, fibular collateral ligament and iliotibial band are intact. The femoral fibers of the MCL are mildly thickened with intermediate T2 signal suggesting grade 2 injury. EXTENSOR MECHANISM: The quadriceps and patellar tendons are intact.The medial and lateral patellar retinacula are intact. KNEE JOINT: There is a moderate-sized joint effusion. Moderate tricompartmental osteoarthritis is noted, most pronounced in the patellofemoral and medial compartments. 5 mm area of Full-thickness chondral fissuring involves the posterior weightbearing medial femoral condyle with underlying subcortical cystic change/edema. Additionally scattered areas of mostly intermediate chondromalacia are seen throughout the medial compartment. Low to intermediate grade chondral thinning is seen within the lateral compartment. There is prominent spurring of the patellofemoral joint with multifocal intermediate to high-grade chondral fissuring and chondral loss. No significant subcortical cystic change/edema or full-thickness chondral loss. BONE MARROW: The bone marrow signal is age appropriate. No fracture, marrow edema, or marrow replacing process. SOFT TISSUES: The periarticular soft tissues are unremarkable. IMPRESSION: 1. Moderate tricompartmental osteoarthritis with moderate sized joint effusion. 2. Complex tear of the anterior horn and junction lateral meniscus with horizontal undersurface tear of the posterior horn lateral meniscus likely extending into the meniscal root. 3. Blunted and torn free change posterior horn medial meniscus. 4. Grade 2 injury of the MCL. The above report was generated using voice recognition software. It may contain grammatical, syntax or spelling errors. Electronically signed by: Terry Curtis M.D. 05/10/2017 12:17 PM Dictated Date/Time: 05/10/2017 12:02 PM
== END | disposition home or self-care (01) ==
LOC: C.OPENMRI 10:47
PROVIDERS: ATTEND Physical Medicine & Rehabilitation Sports Medicine
DX: M19.90 Unspecified osteoarthritis, unspecified site (principal)

== ENCOUNTER → 2017-05-22 | Outpatient (CLI) | payer OTHER, BC ==
[2017-05-22 12:41] LABS: BLOOD UREA NITROGEN 12 mg/dl (7-18); BUN/CREATININE RATIO 11.1 (10-20); CALCIUM 9.5 mg/dl (8.5-10.1); CARBON DIOXIDE 32 mmol/L (21-32); CHLORIDE 99 mmol/L (98-107); GLUCOSE 122 mg/dl (70-99); POTASSIUM 3.1 mmol/L (3.5-5.1); SODIUM 139 mmol/L (136-145)
[2017-05-22 12:55] LABS: URINE APPEARANCE CLEAR (CLEAR); URINE BILIRUBIN NEG (NEG); URINE COLOR YELLOW; URINE NITRITE NEG (NEG); URINE PH 6.5 (4.5-7.5); URINE SPECIFIC GRAVITY 1.016 (1.000-1.030); UROBILINOGEN NEG (NEG)
[2017-05-22 13:02] LABS: MANUAL MICROSCOPIC REQUIRED? NO; REVIEW REQ? NO
== END | disposition home or self-care (01) ==
LOC: C.LAB 10:13
PROVIDERS: ATTEND Internal Medicine Geriatric Medicine
DX: E55.9 Vitamin D deficiency, unspecified (principal); R35.0 Frequency of micturition

== ENCOUNTER → 2017-06-13 | Outpatient (CLI) | payer OTHER, BC ==
[2017-06-13 13:12] LABS: BASO % 0.7 %; BASO ABS # 0.05 K/uL (0-0.2); COMPLETE YES; EOS % 1.7 %; HEMATOCRIT 44.8 % (42-52); IG% 0.3 %; LYMPH % 23.2 %; LYMPH ABS # 1.65 K/uL (1.2-3.4); MEAN CELL VOLUME 90.5 fL (80-100); MEAN CORPUSCULAR HEMOGLOBIN 29.7 pg (25-34); MEAN CORPUSCULAR HGB CONC 32.8 g/dl (32-36); MEAN PLATELET VOLUME 10.5 fL (7.4-10.4); MONO % 9.7 %; NEUT % 64.4 %; PLATELET COUNT 239 K/uL (130-400); RED BLOOD COUNT 4.95 M/uL (4.7-6.1)
[2017-06-13 13:39] LABS: BLOOD UREA NITROGEN 11 mg/dl (7-18); BUN/CREATININE RATIO 11.4 (10-20); CALCIUM 8.9 mg/dl (8.5-10.1); CARBON DIOXIDE 30 mmol/L (21-32); CHLORIDE 103 mmol/L (98-107); CREATININE 0.99 mg/dl (0.60-1.40); GLUCOSE 102 mg/dl (70-99); POTASSIUM 3.5 mmol/L (3.5-5.1); SODIUM 138 mmol/L (136-145)
== END | disposition home or self-care (01) ==
LOC: C.LAB 12:04
PROVIDERS: ATTEND Internal Medicine Cardiovascular Disease
DX: E87.6 Hypokalemia (principal); D72.829 Elevated white blood cell count, unspecified; E55.9 Vitamin D deficiency, unspecified

== ENCOUNTER → 2017-09-11 | Outpatient (CLI) | payer OTHER, BC ==
--- NOTE | 2017-09-11 15:36 | DIAGNOSTIC IMAGING REPORT ---
CHEST 2 VIEWS ROUTINE HISTORY: 76 years-old Male R06.2 [id number] acute wheezing with asthma COMPARISON: Chest radiograph 10/01/2016 TECHNIQUE: PA and lateral views of the chest FINDINGS: Moderate sized hiatal hernia with partially intrathoracic stomach redemonstrated. Cardiac silhouette is upper limits of normal. Mild hyperinflation. There is no pneumothorax, pleural effusion, focal airspace consolidation or overt pulmonary edema. Degenerative changes are seen within the bilateral shoulders and spine. IMPRESSION: 1. Mild hyperinflation without acute cardiopulmonary process. 2. Moderate sized hiatal hernia. The above report was generated using voice recognition software. It may contain grammatical, syntax or spelling errors. Electronically signed by: Terry Curtis M.D. 09/11/2017 3:35 PM Dictated Date/Time: 09/11/2017 3:34 PM
[2017-09-11 17:41] LABS: BLOOD UREA NITROGEN 12 mg/dl (7-18); BUN/CREATININE RATIO 11.6 (10-20); CALCIUM 8.9 mg/dl (8.5-10.1); CARBON DIOXIDE 30 mmol/L (21-32); CHLORIDE 100 mmol/L (98-107); CREATININE 1.04 mg/dl (0.60-1.40); GLUCOSE 89 mg/dl (70-99); POTASSIUM 3.8 mmol/L (3.5-5.1); SODIUM 138 mmol/L (136-145)
[2017-09-12 06:03] LABS: ESTIMATED AVERAGE GLUCOSE 114 mg/dl; HA1C FLAG Normal (Normal)
== END | disposition home or self-care (01) ==
LOC: C.RADBC 14:51
PROVIDERS: ATTEND Physician Assistant Medical
DX: R06.2 Wheezing (principal); E55.9 Vitamin D deficiency, unspecified; I10 Essential (primary) hypertension; R35.8 Other polyuria; R73.9 Hyperglycemia, unspecified; K44.9 Diaphragmatic hernia without obstruction or gangrene

== ENCOUNTER → 2017-11-07 | Outpatient (CLI) | payer OTHER, BC ==
[~2017-11-07] MED LIST changes: +CLON0.1T12 PO; -CLON0.2T PO; -FOLI1TAB7 PO; +FOLI1TAB8 PO; -LISI-788 PO; +OXYC-106 PO; -OXYC-57 PO; -OXYC1TAB3 PO; +TRIA37.5 PO
[2017-11-07 18:09] LABS: BASO % 0.4 %; BASO ABS # 0.03 K/uL (0-0.2); EOS % 1.6 %; EOS ABS # 0.12 K/uL (0-0.5); HEMATOCRIT 43.4 % (42-52); HEMOGLOBIN 14.5 g/dL (14.0-18.0); IG# 0.02 K/uL (0.00-0.02); LYMPH % 12.8 %; LYMPH ABS # 0.93 K/uL (1.2-3.4); MEAN CELL VOLUME 93.3 fL (80-100); MEAN CORPUSCULAR HEMOGLOBIN 31.2 pg (25-34); MEAN CORPUSCULAR HGB CONC 33.4 g/dl (32-36); MEAN PLATELET VOLUME 10.8 fL (7.4-10.4); MONO % 10.6 %; MONO ABS # 0.77 K/uL (0.11-0.59); NEUT % 74.3 %; NEUT ABS # 5.42 K/uL (1.4-6.5); PLATELET COUNT 277 K/uL (130-400); RED CELL DISTRIBUTION WIDTH CV 14.4 % (11.5-14.5); RED CELL DISTRIBUTION WIDTH SD 48.6 fL (36.4-46.3); WHITE BLOOD COUNT 7.29 K/uL (4.8-10.8)
[2017-11-07 18:31] LABS: ALBUMIN 3.8 gm/dl (3.4-5.0); ALT/SGPT 25 U/L (12-78); AST/SGOT 25 U/L (15-37); BLOOD UREA NITROGEN 18 mg/dl (7-18); CALCIUM 8.8 mg/dl (8.5-10.1); CARBON DIOXIDE 31 mmol/L (21-32); CREATININE 1.25 mg/dl (0.60-1.40); GLUCOSE 84 mg/dl (70-99); POTASSIUM 4.1 mmol/L (3.5-5.1); SODIUM 135 mmol/L (136-145)
[2017-11-07 18:41] LABS: ALKALINE PHOSPHATASE 62 U/L (45-117); TOTAL PROTEIN 7.1 gm/dl (6.4-8.2)
[2017-11-08 07:17] LABS: HEMOGLOBIN A1C 5.4 % (4.5-5.6)
== END | disposition home or self-care (01) ==
LOC: C.LAB 16:36
PROVIDERS: ATTEND Internal Medicine Geriatric Medicine
DX: I10 Essential (primary) hypertension (principal); R53.83 Other fatigue; R00.1 Bradycardia, unspecified; F41.8 Other specified anxiety disorders; E55.9 Vitamin D deficiency, unspecified; E87.6 Hypokalemia; R73.9 Hyperglycemia, unspecified; R35.8 Other polyuria

== ENCOUNTER → 2018-01-29 | Outpatient (CLI) | payer OTHER, BC | END | disposition home or self-care (01) | LOC: C.RDSM 15:00 | PROVIDERS: ATTEND Physical Medicine & Rehabilitation Sports Medicine | DX: M19.012 Primary osteoarthritis, left shoulder (principal) ==

== ENCOUNTER 2018-03-19 08:14 | Emergency (ER) | payer OTHER, BC ==
[~2018-03-19] VITALS: Ht 188 cm; Wt 107.2 kg
[2018-03-19 08:15] VITALS: TEMP 36.6; Ht 188 cm; Wt 107.2 kg
[2018-03-19] MEDS ORDERED: CHOL200027 PO (08:42)
[2018-03-19] MEDS ORDERED: ONDANSETRON INJ 2 MG/ML 2 ML VIAL IV STA ×2 (08:45→10:49)
[2018-03-19] MEDS ORDERED: MoRPHine SULFATE 4 MG/ML 1 ML CARP\\VIAL IV STA ×3 (08:45→10:48)
--- NOTE | 2018-03-19 08:57 | EMERGENCY ROOM VISIT NOTE ---
History Report prepared by Vladimir: Christen Brown Under the Supervision of: Dr. Luciana Anthony M.D. First contact with patient: 08:35 Chief Complaint: ARM PAIN Stated Complaint: LEFT SIDE OF BODY- SEVERE PAIN History of Present Illness The patient is a 77 year old male who presents to the Emergency Room with complaints of worsening right arm pain beginning around 1 month [employer]OX CUT[employer]. He states that 2 weeks ago, he went to his doctor where he was diagnosed with a strained right tricep. He states his pain is positional, lying down alleviates his pain. Walking worsens pain to a 10/10 in severity. He also notes that he has some tingling in the fingers on his right hand. He denies any chest pain or SOB. He and his recently got back from a trip to [place] and his states that the patient's feet. The patient reports he has a history of severe rheumatoid arthritis in his shoulders. Source of History: patient Onset: 843 Position: other (right arm) Symptom Intensity: 6/10 in severity while lying down and 10/10 in severity while walking Timing: worsening Modifying Factors (Worsening): movement (walking) Modifying Factors (Relieving): other (lying down) Associated Symptoms: No chest pain, No SOB Review of Systems See HPI for pertinent positives & negatives. A total of 10 systems reviewed and were otherwise negative. Past Medical & Surgical Medical Problems: (1) A-fib (2) Anemia (3) Anxiety State Nos (4) Asthma (5) Atrial fibrillation (6) Atrial flutter (7) Dyspnea on exertion (8) Fall (9) Generalized weakness (10) Hypertension (11) Left groin pain (12) Left rib fracture (13) Pharyngitis (14) RA (rheumatoid arthritis) (15) Symptomatic bradycardia Family History FH: Alzheimers disease FHx: cancer FHx: heart disease Hypertension Social History Smoking Status: Never Smoker Drug Use: none Marital Status: Housing Status: lives with significant other Occupation Status: retired Current/Historical Medications Scheduled Alprazolam (Xanax), 1 TAB PO HS Amiodarone Hcl (Cordarone), 100 MG PO DAILY Cholecalciferol (Vitamin D-3), 1 TAB PO DAILY Clonidine Hcl (Catapres), 1 TAB PO PRN Felodipine (Plendil), 5 MG PO HS Folic Acid (Folvite), 1 MG PO DAILY Lisinopril (Prinivil), 40 MG PO QAM Methotrexate (Trexall), 15 MG PO WK Nizatidine (Nizatidine), 150 MG PO HS Prednisone (Prednisone), 10 MG PO DIRECTED Senna (Senokot), 1 TAB PO DAILY Triamterene/Hctz (Dyazide 37.5MG/25MG), 1 TAB PO Q2 DAYS Scheduled PRN Albuterol Sulfate (Proair Respiclick), 2 PUFFS INH UD PRN for Wheezing Oxycodone/Acetaminophen 10MG/325MG (Percocet 10MG/325MG), 1 TAB PO TID PRN for Pain Allergies Coded Allergies: NSAIDs (Verified Allergy, Severe, BLEEDING, 03/19/18) Latex (Verified Allergy, Intermediate, REDNESS ON SKIN, 03/19/18) Aspirin (Verified Adverse Reaction, Severe, BLEEDING, 03/19/18) Physical Exam Vital Signs Date Time Temp Pulse Resp B/P (MAP) Pulse Ox O2 Delivery O2 Flow Rate FiO2 03/19/18 14:20 58 20 164/90 94 03/19/18 13:26 65 20 95 Room Air 03/19/18 12:20 93 Nasal Cannula 2.0 03/19/18 12:17 56 16 158/92 87 Room Air 03/19/18 10:55 53 20 181/90 94 Room Air 03/19/18 10:03 52 16 178/78 95 Room Air 03/19/18 08:15 36.6 66 20 180/86 97 Room Air Physical Exam Vital signs reviewed. General: Well-appearing male, in no significant distress. HEENT: No scleral icterus, PERRLA, neck supple. Atraumatic. Cardiovascular: Regular rate and rhythm, no extra sounds. Pulmonary: Clear to auscultation bilaterally, normal work of breathing. Abdomen: Soft, nontender, nondistended, positive bowel sounds. Musculoskeletal: Atraumatic, no peripheral edema. Some pain with ROM of the right shoulder. Pain mostly with internal rotation and adduction of RUE. Mild tenderness along the cervical spine. No significant reproducible pain to palpation. Neurologic: Patient awake alert and oriented x 3, full strength in all 4 extremities. Cranial nerves 2 through 12 grossly intact. Skin: Warm, dry, no rash Medical Decision & Procedures ER Provider Diagnostic Interpretation: Radiology results as stated below per my review and radiologist interpretation: TWO VIEW CHEST CLINICAL HISTORY: Right arm pain. FINDINGS: PA and lateral chest radiographs are compared to study dated 09/11/2017. The cardiomediastinal silhouette is unremarkable. There is a large hiatal hernia. Atelectasis is seen at the left lung base. The lungs and pleural spaces are otherwise clear. There is no pneumothorax. The skeletal structures are osteopenic. The bony thorax appears intact. IMPRESSION: 1. No active disease in the chest. 2. Large hiatal hernia. Electronically signed by: Dequan Sanchez M.D. 03/19/2018 10:37 AM CERVICAL SPINE 5 VIEWS HISTORY: right arm radiculopathy COMPARISON: Cervical spine 11/21/2009. FINDINGS: The cervical spine is visualized from C1 through the superior endplate of T1. There is no fracture. No subluxation. Moderate disc space narrowing at C5-C6 and C6-C7 with endplate osteophytes. Prevertebral soft tissues and the atlantodens interval are intact. Straightening of the cervical spine. Moderate facet osteoarthritis throughout the cervical spine. Multilevel [id number] bilateral neural foraminal narrowing is not significantly changed. IMPRESSION: 1. No fractures within the cervical spine. 2. Straightening of the cervical spine. 3. Multilevel cervical spondylosis as described above. This is not significantly change. Electronically signed by: Bobby Bobo M.D. 03/19/2018 10:44 AM MRI OF THE CERVICAL SPINE WITHOUT IV CONTRAST CLINICAL HISTORY: Right upper extremity radiculopathy of one month's duration. COMPARISON STUDY: CT scan of the cervical spine dated 11/21/2009. Radiographs of the cervical spine dated 03/19/2018. TECHNIQUE: MRI of the cervical spine is performed utilizing various T1 and T2-weighted sequences in the axial and sagittal planes. IV contrast was not measured for this examination. The examination is compromised by motion artifact. FINDINGS: Cervical spine: Vertebral body height is maintained throughout the cervical spine. There is minimal anterolisthesis at C4-C5. Alignment is otherwise maintained. There is straightening of the cervical lordosis with reversal centered at C5. The atlantodental articulation appears maintained. The spinous processes are intact. Small anterior osteophytes are seen throughout. Marrow signal intensity is mildly heterogeneous. No destructive bony lesion is suggested. Intervertebral discs: There is degenerative disc desiccation throughout the cervical spine. Mild to moderate loss of height is seen at C5-C6 and C6-C7. Paraspinal cord: The cervical spinal cord is normal in morphology and signal intensity. C2-C3: A small posterior disc osteophyte complex effaces the ventral subarachnoid space. Uncovertebral and facet arthropathy cause mild to moderate right neural foraminal stenosis. C3-C4: A posterior disc osteophyte complex abuts the ventral cord. Uncovertebral and facet arthropathy cause severe right greater than left neural foraminal stenosis. C4-C5: A posterior disc osteophyte complex abuts the ventral cord. Uncovertebral and facet arthropathy cause severe left and moderate right neural foraminal stenosis. C5-C6: A posterior disc osteophyte complex abuts the ventral cord. Uncovertebral and facet arthropathy cause severe right and moderate left neural foraminal stenosis. C6-C7: A posterior disc osteophyte complex eccentric to the left abuts the ventral cord. Uncovertebral and facet arthropathy cause severe left greater than right neural foraminal stenosis. C7-T1: A small posterior disc osteophyte complex effaces the ventral subarachnoid space. The neural foramina are patent. Soft tissues: The prevertebral and paraspinous soft tissues are within normal limits. The left submandibular gland appears enlarged, but is unchanged from 2010 CT scan. The right submandibular gland is diminutive. Brain parenchyma: Partially imaged brain parenchyma at the skull base is normal as visualized. IMPRESSION: 1. Multilevel cervical spondylosis as above. See discussion for detailed level by level analysis. 2. Cervical spinal cord is normal in morphology and signal intensity. 3. No destructive bony process is identified. Dictated: 03/19/2018 11:47 AM Transcribed: 03/19/2018 12:33 PM Krista Electronically signed by: Dequan Sanchez M.D. 03/19/2018 12:35 PM Laboratory Results 03/19/18 09:10 Red Blood Count 4.44, Mean Corpuscular Volume 90.8, Mean Corpuscular Hemoglobin 30.4, Mean Corpuscular Hemoglobin Concent 33.5, Mean Platelet Volume 10.1, Neutrophils (%) (Auto) 65.6, Lymphocytes (%) (Auto) 18.5, Monocytes (%) (Auto) 12.4, Eosinophils (%) (Auto) 3.0, Basophils (%) (Auto) 0.4, Neutrophils # (Auto ) 4.60, Lymphocytes # (Auto) 1.30, Monocytes # (Auto) 0.87, Eosinophils # (Auto ) 0.21, Basophils # (Auto) 0.03 03/19/18 09:10 Test 03/19/18 09:10 White Blood Count 7.02 K/uL (4.8-10.8) Red Blood Count 4.44 M/uL (4.7-6.1) Hemoglobin 13.5 g/dL (14.0-18.0) Hematocrit 40.3 % (42-52) Mean Corpuscular Volume 90.8 fL (80-100) Mean Corpuscular Hemoglobin 30.4 pg (25-34) Mean Corpuscular Hemoglobin Concent 33.5 g/dl (32-36) Platelet Count 248 K/uL (130-400) Mean Platelet Volume 10.1 fL (7.4-10.4) Neutrophils (%) (Auto) 65.6 % Lymphocytes (%) (Auto) 18.5 % Monocytes (%) (Auto) 12.4 % Eosinophils (%) (Auto) 3.0 % Basophils (%) (Auto) 0.4 % Neutrophils # (Auto) 4.60 K/uL (1.4-6.5) Lymphocytes # (Auto) 1.30 K/uL (1.2-3.4) Monocytes # (Auto) 0.87 K/uL (0.11-0.59) Eosinophils # (Auto) 0.21 K/uL (0-0.5) Basophils # (Auto) 0.03 K/uL (0-0.2) RDW Standard Deviation 51.2 fL (36.4-46.3) RDW Coefficient of Variation 15.5 % (11.5-14.5) Immature Granulocyte % (Auto) 0.1 % Immature Granulocyte # (Auto) 0.01 K/uL (0.00-0.02) Anion Gap 6.0 mmol/L (3-11) Est Creatinine Clear Calc Drug Dose 81.5 ml/min Estimated GFR () 84.8 Estimated GFR (Non- 73.2 BUN/Creatinine Ratio 7.1 (10-20) Calcium Level 9.0 mg/dl (8.5-10.1) Total Bilirubin 0.5 mg/dl (0.2-1) Direct Bilirubin mg/dl (0-0.2) Aspartate Amino Transf (AST/SGOT) U/L (15-37) Alanine Aminotransferase (ALT/SGPT) 28 U/L (12-78) Alkaline Phosphatase 59 U/L (45-117) Troponin I < 0.015 ng/ml (0-0.045) Total Protein 7.1 gm/dl (6.4-8.2) Albumin 3.7 gm/dl (3.4-5.0) Laboratory results per my review. Medications Administered Medications (Trade) Dose Ordered Sig/Mara Route Start Time Stop Time Status Last Admin Dose Admin Morphine Sulfate (MoRPHine SULFATE INJ) 4 mg NOW STAT IV 03/19/18 08:45 03/19/18 08:50 DC 03/19/18 09:12 4 MG Ondansetron HCl (Zofran Inj) 4 mg NOW STAT IV 03/19/18 08:45 03/19/18 08:50 DC 03/19/18 09:11 4 MG Morphine Sulfate (MoRPHine SULFATE INJ) 4 mg NOW STAT IV 03/19/18 09:47 03/19/18 09:48 DC 03/19/18 10:03 4 MG Methylprednisolone Sodium Succinate (Solu-Medrol IV) 125 mg NOW STAT IV 03/19/18 09:47 03/19/18 09:48 DC 03/19/18 10:03 125 MG Morphine Sulfate (MoRPHine SULFATE INJ) 4 mg NOW STAT IV 03/19/18 10:48 03/19/18 10:49 DC 03/19/18 10:53 4 MG ED Course 0844: Past medical records reviewed. The patient was evaluated in room B12. A complete history and physical examination was performed. 0845: Ordered Zofran Inj 4 mg, Morphine Sulfate 4 mg IV 0947: Ordered Solu-Medrol IV 125 mg IV, Morphine Sulfate 4 mg IV 1048: Ordered Morphine Sulfate 4 mg IV 1049: Ordered Zofran Inj 4 mg IV 1414: The patient will have a follow up appointment tomorrow with Dr. Thomas, Ortho Medical Decision Differential diagnosis: Etiologies such as musculoskeletal, disc herniation, fracture, aortic disease, metastatic disease, cord compression, discitis, infection, renal colic, gastrointestinal, acute exacerbation of chronic back pain, sciatica, cauda equina, as well as others were entertained. This patient was evaluated and appeared to be in some discomfort. IV access was obtained and laboratory work was drawn. The patient required several doses of IV morphine for pain control. Patient had x-rays of the cervical spine with significant degenerative change but no evidence of acute fracture. Chest x-ray reveals evidence of a large hiatal hernia. Follow up MRI of the cervical spine was performed and is read as above. The patient's significant degenerative disc disease and arthritic change are likely the source for his right upper extremity radiculopathy. Dopplers of the bilateral lower extremities are negative for DVT. Patient was given a dose of IV Solu-Medrol and will be placed on a prednisone taper. He does have Percocet to take at home for pain control. An appointment was made for the patient in follow-up with Dr. Thomas of spine surgery. 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 The patient will be discharged in care of his and will return to the ER for worsening of symptoms or any medical concerns. Medication Reconcilliation Current Medication List: was personally reviewed by me Blood Pressure Screening Patient's blood pressure: Elevated blood pressure Blood pressure disposition: Elevated BP felt to be situational Impression Primary Impression: Cervical radiculopathy due to degenerative joint disease ofspine Additional Impression: Dependent edema Scribe Attestation The scribe's documentation has been prepared under my direction and personally reviewed by me in its entirety. I confirm that the note above accurately reflects all work, treatment, procedures, and medical decision making performed by me. Departure Information Dispostion Home / Self-Care Prescriptions Prednisone (Prednisone) 10 Mg Tab 10 MG PO DIRECTED, #17 TAB Prov: Luciana Anthony M.D. 03/19/18 Referrals Misael Zeng M.D. (PCP) Forms HOME CARE DOCUMENTATION FORM, IMPORTANT VISIT INFORMATION Patient Instructions My [facility] Additional Instructions Diagnosis: Cervical radiculopathy, dependent edema Continue your pain medications as prescribed. Prednisone 20 mg daily for 4 days, 15 mg daily for 3 days, 10 mg daily for 3 days, 5 mg daily for 2 days then stop. Contact Dr. Thomas of orthopedic spine for evaluation of your cervical MRI and consideration of further management. Follow-up with your truck safety inspector as soon as possible. Return to the emergency department for worsening of symptoms, fevers, weakness or any medical concerns. Problem Qualifiers
[2018-03-19 09:16] LABS: BASO % 0.4 %; BASO ABS # 0.03 K/uL (0-0.2); EOS ABS # 0.21 K/uL (0-0.5); HEMATOCRIT 40.3 % (42-52); HEMOGLOBIN 13.5 g/dL (14.0-18.0); IG# 0.01 K/uL (0.00-0.02); LYMPH % 18.5 %; MEAN CELL VOLUME 90.8 fL (80-100); MEAN CORPUSCULAR HEMOGLOBIN 30.4 pg (25-34); MEAN CORPUSCULAR HGB CONC 33.5 g/dl (32-36); MEAN PLATELET VOLUME 10.1 fL (7.4-10.4); MONO % 12.4 %; MONO ABS # 0.87 K/uL (0.11-0.59); NEUT % 65.6 %; PLATELET COUNT 248 K/uL (130-400); RED CELL DISTRIBUTION WIDTH CV 15.5 % (11.5-14.5); RED CELL DISTRIBUTION WIDTH SD 51.2 fL (36.4-46.3); WHITE BLOOD COUNT 7.02 K/uL (4.8-10.8)
[2018-03-19 09:39] LABS: ALBUMIN 3.7 gm/dl (3.4-5.0); ALKALINE PHOSPHATASE 59 U/L (45-117); ALT/SGPT 28 U/L (12-78); BLOOD UREA NITROGEN 7 mg/dl (7-18); CARBON DIOXIDE 29 mmol/L (21-32); CREATININE 0.99 mg/dl (0.60-1.40); GLUCOSE 101 mg/dl (70-99); SODIUM 138 mmol/L (136-145); TOTAL PROTEIN 7.1 gm/dl (6.4-8.2)
[2018-03-19] MEDS ORDERED: METHYLPREDNISOLONE 125 MG VIAL IV STA (09:47)
--- NOTE | 2018-03-19 10:39 | DIAGNOSTIC IMAGING REPORT ---
TWO VIEW CHEST CLINICAL HISTORY: Right arm pain. FINDINGS: PA and lateral chest radiographs are compared to study dated 09/11/2017. The cardiomediastinal silhouette is unremarkable. There is a large hiatal hernia. Atelectasis is seen at the left lung base. The lungs and pleural spaces are otherwise clear. There is no pneumothorax. The skeletal structures are osteopenic. The bony thorax appears intact. IMPRESSION: 1. No active disease in the chest. 2. Large hiatal hernia. Electronically signed by: Dequan Sanchez M.D. 03/19/2018 10:37 AM Dictated Date/Time: 03/19/2018 10:36 AM
--- NOTE | 2018-03-19 10:46 | DIAGNOSTIC IMAGING REPORT ---
CERVICAL SPINE 5 VIEWS HISTORY: right arm radiculopathy COMPARISON: Cervical spine 11/21/2009. FINDINGS: The cervical spine is visualized from C1 through the superior endplate of T1. There is no fracture. No subluxation. Moderate disc space narrowing at C5-C6 and C6-C7 with endplate osteophytes. Prevertebral soft tissues and the atlantodens interval are intact. Straightening of the cervical spine. Moderate facet osteoarthritis throughout the cervical spine. Multilevel [id number] bilateral neural foraminal narrowing is not significantly changed. IMPRESSION: 1. No fractures within the cervical spine. 2. Straightening of the cervical spine. 3. Multilevel cervical spondylosis as described above. This is not significantly change. Electronically signed by: Bobby Bobo M.D. 03/19/2018 10:44 AM Dictated Date/Time: 03/19/2018 10:41 AM
[2018-03-19 12:20] VITALS: O2SAT 93
--- NOTE | 2018-03-19 12:33 | DIAGNOSTIC IMAGING REPORT ---
MRI OF THE CERVICAL SPINE WITHOUT IV CONTRAST CLINICAL HISTORY: Right upper extremity radiculopathy of one month's duration. COMPARISON STUDY: CT scan of the cervical spine dated 11/21/2009. Radiographs of the cervical spine dated 03/19/2018. TECHNIQUE: MRI of the cervical spine is performed utilizing various T1 and T2-weighted sequences in the axial and sagittal planes. IV contrast was not measured for this examination. The examination is compromised by motion artifact. FINDINGS: Cervical spine: Vertebral body height is maintained throughout the cervical spine. There is minimal anterolisthesis at C4-C5. Alignment is otherwise maintained. There is straightening of the cervical lordosis with reversal centered at C5. The atlantodental articulation appears maintained. The spinous processes are intact. Small anterior osteophytes are seen throughout. Marrow signal intensity is mildly heterogeneous. No destructive bony lesion is suggested. Intervertebral discs: There is degenerative disc desiccation throughout the cervical spine. Mild to moderate loss of height is seen at C5-C6 and C6-C7. Paraspinal cord: The cervical spinal cord is normal in morphology and signal intensity. C2-C3: A small posterior disc osteophyte complex effaces the ventral subarachnoid space. Uncovertebral and facet arthropathy cause mild to moderate right neural foraminal stenosis. C3-C4: A posterior disc osteophyte complex abuts the ventral cord. Uncovertebral and facet arthropathy cause severe right greater than left neural foraminal stenosis. C4-C5: A posterior disc osteophyte complex abuts the ventral cord. Uncovertebral and facet arthropathy cause severe left and moderate right neural foraminal stenosis. C5-C6: A posterior disc osteophyte complex abuts the ventral cord. Uncovertebral and facet arthropathy cause severe right and moderate left neural foraminal stenosis. C6-C7: A posterior disc osteophyte complex eccentric to the left abuts the ventral cord. Uncovertebral and facet arthropathy cause severe left greater than right neural foraminal stenosis. C7-T1: A small posterior disc osteophyte complex effaces the ventral subarachnoid space. The neural foramina are patent. Soft tissues: The prevertebral and paraspinous soft tissues are within normal limits. The left submandibular gland appears enlarged, but is unchanged from 2010 CT scan. The right submandibular gland is diminutive. Brain parenchyma: Partially imaged brain parenchyma at the skull base is normal as visualized. IMPRESSION: 1. Multilevel cervical spondylosis as above. See discussion for detailed level by level analysis. 2. Cervical spinal cord is normal in morphology and signal intensity. 3. No destructive bony process is identified. Dictated: 03/19/2018 11:47 AM Transcribed: 03/19/2018 12:33 PM MYRNA_Isaías Electronically signed by: Dequan Sanchez M.D. 03/19/2018 12:35 PM Dictated Date/Time: 03/19/2018 11:47 AM
[2018-03-19] MEDS ORDERED: PRED10TA PO (13:14)
[2018-03-19 14:20] VITALS: BP 164/90; PULSE 58; O2SAT 94
--- NOTE | 2018-03-20 07:32 | DIAGNOSTIC IMAGING REPORT ---
BILATERAL LOWER EXTREMITY VENOUS DOPPLER CLINICAL HISTORY: Bilateral lower extremity edema. COMPARISON STUDY: Bilateral lower extremity venous Doppler July 15, 2009. TECHNIQUE: Sonography of the deep venous system of the bilateral lower extremities was performed. Compression and augmentation were evaluated. This study became available for interpretation at 7:30 AM on March 20, 2018. FINDINGS: The bilateral common femoral, superficial femoral and popliteal veins were compressible. Augmentation was normal. Flow was shown within the deep calf vessels. IMPRESSION: No evidence of deep venous thrombus within the bilateral lower extremities. Electronically signed by: Fidel Melgar M.D. 03/20/2018 7:30 AM Dictated Date/Time: 03/20/2018 7:29 AM
== END 2018-03-19 14:21 | disposition home or self-care (01) ==
LOC: C.EDB 08:15
DX: M47.22 Other spondylosis with radiculopathy, cervical region (principal); M79.601 Pain in right arm; R60.0 Localized edema; M79.604 Pain in right leg; M79.605 Pain in left leg; K44.9 Diaphragmatic hernia without obstruction or gangrene; Z79.899 Other long term (current) drug therapy; Z91.040 Latex allergy status; Z88.6 Allergy status to analgesic agent

== ENCOUNTER 2021-05-14 09:59 | Observation (INO) ==
--- NOTE | 2021-04-29 10:05 | PAT Medication Instructions ---
Medication Instructions Date of Service April 29, 2021 Home Medications Medication Instructions Recorded clonidine HCl 0.1 mg tablet 0.1 mg PO DAILY PRN #30 tab 07/21/20 oxycodone-acetaminophen 10 mg-325 1 tab PO Q6H PRN #120 tab 04/05/21 mg tablet azelastine 137 mcg (0.1 %) nasal 1 spray INTRANASAL DAILY PRN #30 ml 04/22/21 spray aerosol albuterol sulfate 90 mcg/actuation 1 inh INHALATION QID PRN #8.5 g 04/28/21 aerosol inhaler doxycycline hyclate 100 mg capsule 100 mg PO BID 7 Days #14 cap 04/28/21 folic acid 1 mg tablet 1 mg PO QAM methotrexate sodium 15 mg PO WK clonidine HCl 0.1 mg tablet 0.1 mg PO DAILY PRN oxycodone-acetaminophen 10 mg-325 mg tablet 1 tab PO Q6H PRN azelastine 137 mcg (0.1 %) nasal spray aerosol 1 spray INTRANASAL DAILY PRN albuterol sulfate 90 mcg/actuation aerosol inhaler 1 inh INHALATION QID PRN doxycycline hyclate 100 mg capsule 100 mg PO BID triamterene 37.5 mg-hydrochlorothiazide 25 mg tablet 1 tab PO Q OTHER DAY felodipine 2.5 mg PO QAM lisinopril 40 mg PO QAM pantoprazole [Protonix] 40 mg PO HS Continue as directed doxycycline hyclate 100 mg capsule 100 mg PO BID ASK your prescriber and surgeon methotrexate sodium 15 mg PO WK DO NOT take the morning of surgery folic acid 1 mg tablet 1 mg PO QAM triamterene 37.5 mg-hydrochlorothiazide 25 mg tablet 1 tab PO Q OTHER DAY lisinopril 40 mg PO QAM Take morning of surgery With a small sip of water, OTHERWISE NOTHING TO EAT OR DRINK AFTER MIDNIGHT: clonidine HCl 0.1 mg tablet 0.1 mg PO DAILY PRN (if needed) oxycodone-acetaminophen 10 mg-325 mg tablet 1 tab PO Q6H PRN (okay to take up to 4 hours prior to surgery if needed) azelastine 137 mcg (0.1 %) nasal spray aerosol 1 spray INTRANASAL DAILY PRN (if needed) albuterol sulfate 90 mcg/actuation aerosol inhaler 1 inh INHALATION QID PRN (use if needed; please bring rescue inhaler with you to hospital day of surgery if possible) Take evening before surgery clonidine HCl 0.1 mg tablet 0.1 mg PO DAILY PRN (if needed) oxycodone-acetaminophen 10 mg-325 mg tablet 1 tab PO Q6H PRN (if needed) azelastine 137 mcg (0.1 %) nasal spray aerosol 1 spray INTRANASAL DAILY PRN (if needed) albuterol sulfate 90 mcg/actuation aerosol inhaler 1 inh INHALATION QID PRN (if needed) doxycycline hyclate 100 mg capsule 100 mg PO BID pantoprazole [Protonix] 40 mg PO HS Other Notes If you have any questions please call us at [phone] or [phone] or [phone] or [phone]
--- NOTE | 2021-05-03 13:07 | Anesthesiology Consultation ---
Date of Service May 03, 2021 Assessment & Plan (1) Encounter for pre-operative examination: - PCP office visit (04/28/21): "Will treat for an asthma exacerbation due to allergies. Recommended antibiotics and steroids. He refused the steroids due to his upcoming surgery. Discussed that Symbicort is a maintenance inhaler. Prescribed albuterol and explained that this is a rescue inhaler.. BP is also elevated - he has clonidine to take as needed and recommended he take that. Monitor BP at home and contact his visual basic programmer if it remains high." Patient had persistent cough for the following few days and PCP ordered a CXR which was done 05/01 was unremarkable. Patient states he spoke with Dr. Calvillo 05/01 who felt that since abx was not helping, okay to discontinue. He states his cough has since resolved (as well as nausea which he felt was related to the doxy). Now asymptomatic and feeling well. Awaiting PCP optimization response. - COVID screening: Per assessment on 05/03: Travel screen- Returned from [place] 04/28 for family reunion. All adults were vaccinated (including patient)/not wearing masks. No further travel planned prior to surgery. Preop COVID testing will be 2 weeks since return from travel. Surgeon arranging preop COVID testing. Awaiting results. - Cardiology office visit (04/08/21): "Patient with permanent atrial fibrillation who does not require any negative chronotropic for rate control. As noted, he is not chronically anticoagulated due to recurrent GI bleeding (see prior office visit notes for rationale), however he has worked with a puddler pile driving developing a plan to use enoxaparin for post operative antithrombotic prophylaxis at the time of his upcoming knee replacement. He appears euvolemic on every other day Dyazide and his blood pressures are generally normotensive" > BP at visit was 120/90. Chart Review Chart Review: Patient seen in Pre Admission Testing Teaching & Discussion Pre-Anesthesia Teaching/Discussion Notes: Instructed NPO after midnight before surgery,except medications with 15 cc of water. Medication instructions provided according to the PAT guidelines. History Surgery Operation Date: 05/14/21 07:00 Proposed Procedures p [facility] Total Knee Arthroplasty - Leonardo Curtis MD Height/Weight Height: 6 ft 2 in Weight: 104.6 kg Allergies Allergy/AdvReac Type Severity Reaction Status Date / Time NSAIDS (Non-Steroidal Allergy Severe Bleeding Verified 04/29/21 11:14 Anti-Inflamma latex Allergy Intermediate Skin Verified 04/29/21 11:14 redness aspirin AdvReac Severe Bleeding Verified 04/29/21 11:14 Medications Home Medications Medication Instructions Recorded Confirmed Last Taken folic acid 1 mg tablet 1 mg PO QAM 07/06/18 04/29/21 04/03/19 methotrexate sodium 15 mg PO WK 06/28/19 04/29/21 Unknown clonidine HCl 0.1 mg tablet 0.1 mg PO DAILY PRN #30 tab 07/21/20 04/29/21 Unknown azelastine 137 mcg (0.1 %) nasal 1 spray INTRANASAL DAILY PRN #30 ml 04/22/21 04/29/21 Unknown spray aerosol albuterol sulfate 90 mcg/actuation 1 inh INHALATION QID PRN #8.5 g 04/28/21 04/29/21 Unknown aerosol inhaler doxycycline hyclate 100 mg capsule 100 mg PO BID 7 Days #14 cap 04/28/21 04/29/21 Unknown triamterene 37.5 1 tab PO Q OTHER DAY tab 04/28/21 04/29/21 Unknown mg-hydrochlorothiazide 25 mg tablet felodipine 2.5 mg PO QAM 04/29/21 04/29/21 Unknown lisinopril 40 mg PO QAM 04/29/21 04/29/21 Unknown pantoprazole [Protonix] 40 mg PO HS 04/29/21 04/29/21 Unknown oxycodone-acetaminophen 10 mg-325 1 tab PO Q6H PRN #120 tab 05/03/21 Unknown mg tablet Past Medical History Medical History Acid reflux Anxiety disorder Asthma Recent exacerbation per PCP visit 04/28/21- given abx (refused steroids d/t upcoming surgery) > symptoms resolved per PAT visit 05/03 Atrial flutter hx CAD (coronary artery disease) Cervical radiculopathy Cervical spondylosis lumbar H/O: GI bleed Hx recurrent (several years ago) HTN (hypertension) Osteoarthritis Permanent atrial fibrillation Not chronically anticoagulated d/t recurrent GI bleeding, follows with Dr. Parra, last visit 04/08/21 (clearance appt) Rheumatoid arthritis Right knee DJD Exercise / Class Metabolic Activity III < 4 Walking/Shop/Light housework Past Family History Family History Father , age 66 of an [place] Myocardial infarction Mother , age 83 of dementia Alzheimer disease Uncle Cancer Denies family history of Ovarian cancer Prostate cancer Breast cancer Colorectal cancer Past Surgical History Surgical History H/O knee surgery Left knee arthroscopy History of lumbar surgery 1982 Hx of cataract surgery R/L Past Anesthesia History No Hx of Anesthesia Complications and No Family Hx of Anesthesia Complications History of PONV No Hx of PONV and Hx of Motion Sickness (occasional) Social History Smoking Status: Never smoker Do You Dip or Chew Tobacco: No Hx Alcohol Use: No Hx Substance Use: No substance use type: does not use Review of Systems Patient denies chest pain, fever, chills, cough, wheezing, palpitations. Physical Exam Vital Signs VITALS BP 169/81 P 63 TEMP 98.6 SP02 97%RA RESP 16 PHYSICAL Full cervical extension range of motion. Full TMJ range of motion. TMD 4 finger breaths Mallampati Score 4 (small oral opening) Dentition: missing molar/side, + crown Lungs: clear throughout to auscultation Cardiac: regular rate, irregular rhythm, no murmurs noted Spine: normal Carotid arteries: negative bruit Extremities: no edema Lab Results Anesthesia Preop Results Results Anesthesia Widget: WBC 11.21 K/uL (4.8-10.8) H 05/03/21 Hgb 14.7 g/dL (14.0-18.0) 05/03/21 Hct 45.0 % (42-52) 05/03/21 Plt 275 K/uL (130-400) 05/03/21 Na 141 mmol/L (136-145) 05/03/21 K 4.9 mmol/L (3.5-5.1) 05/03/21 Cl 105 mmol/L (98-107) 05/03/21 CO2 33 mmol/L (21-32) H 05/03/21 BUN 10 mg/dl (7-18) 05/03/21 Creat 0.92 mg/dl (0.6-1.4) 05/03/21 Glucose Level 88 mg/dl (70-99) 05/03/21 PT 10.3 Seconds (9.0-12.0) 05/03/21 PTT 26.6 Seconds (21.0-31.0) 05/03/21 INR 1.0 (0.9-1.1) 05/03/21 Blood Type O Positive 05/03/21 Antibody Screen NEGATIVE 05/03/21 Lab Comments: Surgeon's office made aware of elevated WBC. Testing Electrocardiogram Date: 05/03/21 A. fib at 68bpm. Chest X-Ray Date: 05/01/21 FINDINGS: PA and lateral chest radiographs are compared to study dated 06/28/2019. The heart is enlarged. The pulmonary vasculature is noncongested. Chronic interstitial thickening is similar to previous. There is chronic eventration of the left hemidiaphragm with associated left basilar atelectasis. No airspace consolidation or pleural effusion is identified. There is no pn eumothorax. The skeletal structures are osteopenic. The bony thorax appears intact. Arthritic change is seen in the shoulders. IMPRESSION: Cardiomegaly with no active disease in the chest.
[~2021-05-14 09:59] MED LIST changes: +ACETAMINOPHEN 500 MG TAB PO SCH; -ALBU18002 INH; -ALPR0.5T PO; -AMIO200T4 PO; +BUPIVACAINE 0.5 % 5 MG/1 ML PF 10ML VIAL ONE; +BUPIVACAINE LIPOSOME/PF 266 MG, BUPIVACAINE/EPINEPHRINE 50 ML, SODIUM CHLORIDE 0.9% 30 ... INFIL SCH; -CLON0.1T12 PO; +FAMOTIDINE 20 MG TAB PO SCH; -FELO1TAB7 PO; -FOLI1TAB8 PO; +GABAPENTIN 300 MG CAP PO SCH; -LISI20TA3 PO; +LR 500ML BOLUS, THEN 15ML/HR IV SCH; +LR 60ML/HR IV SCH; -METH15TA2 PO; +METOCLOPRAMIDE HCL 10 MG TABLET PO SCH; -NIZA150C3 PO; -OXYC-106 PO; +ROPIVACAINE 0.5% 5 MG/ML 30 ML VIAL ONE; -SENN-61 PO; +TRANEXAMIC ACID 1,000 MG **IV Intra-op IV SCH; -TRIA37.5 PO; +ceFAZolin 2000MG 2,000 MG/15 ML SYR IV SCH
--- NOTE | 2021-05-14 11:08 | History & Physical Bridge Note ---
Date of Service May 14, 2021 History & Physical Bridge Note I have examined the patient, reviewed the History & Physical and in the interval since the performance of the History & Physical I have noted the following changes of clinical significance: no changes noted
[2021-05-14] MEDS ORDERED: MIDAZOLAM HCL 1 MG/ML 2ML VIAL ONE (12:24)
[2021-05-14] MEDS ORDERED: fentaNYL citrate 100 MCG/2 ML VIAL ONE (12:24)
[2021-05-14] MEDS ORDERED: PROPOFOL IV EMULSION 10 MG/ML 20 ML VIAL IV ONE ×2 (12:24→12:25)
[2021-05-14] MEDS ORDERED: LIDOCAINE 2% 2 ML VIAL/AMP(20MG/ML) INFIL ONE ×2 (12:24→12:25)
[2021-05-14] MEDS ORDERED: ONDANSETRON INJ 2 MG/ML 2 ML VIAL IV PRN ×2 (12:47→17:40)
[2021-05-14] MEDS ORDERED: HYDROmorphone INJ 2 MG/ML SYR/VIAL IV PRN (12:47)
[2021-05-14] MEDS ORDERED: fentaNYL citrate 100 MCG/2 ML VIAL IV PRN (12:47)
[2021-05-14] MEDS ORDERED: ePHEDrine sulfate 50 MG/ML AMP IV PRN (12:47)
[2021-05-14] MEDS ORDERED: ATROPINE SULFATE 0.1 MG/ML 10ML SYR IV PRN (12:47)
[2021-05-14] MEDS ORDERED: SODIUM CHLORIDE 0.9% PF 50 ML VIAL ONE (13:21)
[2021-05-14] MEDS ORDERED: EPINEPHrine INJ 1 MG/ML AMP ONE (13:21)
[2021-05-14] MEDS ORDERED: BUPIVACAINE 0.25% 30 ML VIAL ONE (13:21)
[2021-05-14] MEDS ORDERED: BUPIVACAINE LIPOSOME 1.3% 266 MG/20 ML VIAL ONE (13:21)
--- NOTE | 2021-05-14 15:32 | Operative Report ---
Post Operative Report Pre & Post Diagnosis Operation Date: 05/14/21 12:30 Pre-Op Diagnosis: Right Knee Osteoarthritis, Right Knee Pain Post-Op Diagnosis: Right Knee Osteoarthritis, Right Knee Pain I identified the patient and participated in the time-out.: Yes Procedure Operation Date: 05/14/21 12:30 Actual Procedures p [facility] Total Knee Arthroplasty(Right) - Leonardo Curtis MD Surgeon Leonardo Curtis MD [employer]ist [employer] DAVINA Guy Estimated Blood Loss 50 Findings Consistent with Post-Op Diagnosis Operative findings were advanced right knee DJD. He had extensive grade 4 [id number] disease in all 3 compartments. He had a large knee joint effusion with a valgus deformity to his knee and a slight flexion contracture. Fluids 1700 cc Specimens Right knee sent for pathology Drains None Anesthesia Type Spinal MAC Complications none Disposition Accompanied Patient To Recovery: No Indications Patient is an 80-year-old gentleman is had a long history of bilateral knee pain discomfort and progressive degenerative changes. Has been through extensive conservative treatment which became less successful over time. X-rays show advanced bilateral knee DJD. The right knee is bothering more than left knee elect proceed with right total knee arthroplasty. Description of Procedure Operative implants consisted of: 1 Biomet Vanguard size 72.5 right posterior stabilized femoral component. 2. Biomet size 79 tibial tray. 3. 10 mm posterior stabilized polyethylene insert. 4. 34 x 8 and half all polypatella. Patient was taken to the operating, identified, placed on the operating table supine position but all contact areas were properly padded. IV antibiotics 5 by anesthesia team. Spinal anesthetic and abductor canal block had been applied in the holding area. [place] catheter was placed in sterile fashion. Right thigh turn was then placed. Right lower extremities and prepped draped in usual sterile fashion. The right leg was elevated exsanguinated with use of an Esmarch and turns placed at 300 mmHg. An anterior approach to the right knee was then performed to longitudinal incision centered over the patella. Sharp dissection was carried through subcutaneous tissue down the extensor mechanism. A medial parapatellar arthrotomy incision was made. Some subperiosteal dissection was carried out medially. The fat pad was resected from each patella tendon. Lateral patellofemoral ligament was released. Patella subluxated laterally and the knee was flexed. The osteophytes taken out distal femur. The ACL and PCL were then released from distal femur the tibia subluxated anteriorly. External tibial alignment jig was then placed in the interface the tibia and adjusted 12 mm medially. The proximal tibial cut was made remove about 4 mm of bone from the medial side. The tibia was then sized to a size 79. Attention drawn the femur. The distal femur was entered with a sharp drill bit intramedullary canal was suction. A right 5 degree valgus cutting guide was placed. Distal femoral cutting block was pinned in place. This femoral cut was made to take an additional 3 mm bone off distal femur. Femur was then sized to a size 72.5. The AP cutting block was pinned parallel to the epicondylar axis which was 3 degrees of external rotation. The anterior cut, anterior chamfer, posterior cut, posterior chamfer cuts were made. The box cutting guide was placed in just slight lateral box cut was made. The knee was flexed. The remnants of the medial and lateral menisci were excised. The osteophytes were taken off the posterior aspect of the femur. A trial femoral component was placed. The tibial tray was pinned in maximum external rotation and the drill and stem punch used to create defect in proximal tibia for the tibial tray. The knee was then trialed the 10 mm insert fit most appropriately. Attention drawn the patella. The patella skin of all soft tissues. Patella thickness measured 23 mm in thickness was cut down to 14. It was sized to a size 34 patella. The lug holes were drilled for the 34 patella. The lateral osteophyte was removed. Patella button was placed. Knee was taken through range of motion patella tracked nicely with no thumbs test. Attention drawn to place the permanent components. All trial components were removed. Bone plug was placed in the distal femur limit blood loss put a double batch Palacos G cement was mixed. A Biomet Vanguard size 72.5 right posterior stabilized femoral component, size 79 tibial tray, a 10 mm posterior stabilized polyethylene insert, and a 34 x 8 and half all polypatella were then cemented in place. The knee was brought out into full extension total cement hardened. Final cement cement check was then performed. The pericapsular tissues were injected with total of 100 cc of combination of 20 cc of Exparel, 30 cc normal saline, 50 cc of quarter percent Marcaine with epinephrine. Patient initially 1 g tranexamic acid. The turn was then let down for final turn time of 65 minutes. Hemostasis assured use electrocautery. Extensor mechanism closed with combination 1 PDS suture #1 Vicryl suture in maqcab-cu-lomew fashion. Extensor mechanism checked found to be intact with subcutaneous tissue then closed with 2 Dexon suture in a buried interrupted fashion skin was closed skin aditya. Leg was then cleaned and dried a sterile dressing was Xeroform, 4 x 4's, sterile cast padding, Joseph bandage applied. Patient then transferred to the recovery room in stable condition. Patient tolerated procedure well and there were no complications. Jhonatan Guy, my physician anesthesiologists' assistant, was present for the entire procedure. His assistance was essential and required for appropriate patient positioning, prepping and draping, surgical exposure, performing the technical details of the operation, placement the implants, closure of the wound, and placement of the sterile bandage. I attest to the content of the Intraoperative Record and any orders documented therein. Any exceptions are noted below.
--- NOTE | 2021-05-14 15:44 | XRay Report ---
XR knee RT 1 or 2V routine CLINICAL HISTORY: Surgical Post Op COMPARISON: X-ray study dated 03/08/2021 DISCUSSION: There are postsurgical changes of a total right knee arthroplasty and patellar resurfacin g. There is gas present within the soft tissues consistent with recent surgery. There are overlying s kin aditya. IMPRESSION: Postsurgical changes of a total right knee arthroplasty. ACT 112: Negative or not required by law. Electronically signed by: Babar Rivera M.D. 05/14/2021 3:43 PM
--- NOTE | 2021-05-14 16:01 | Anesthesiology Progress Note ---
Date of Service May 14, 2021 Anesthesia Post Procedure Vital Signs Vital Signs: Temp Pulse Resp BP Pulse Ox 05/14/21 15:55 36.3 C L 65 18 154/86 H 98 05/14/21 15:45 66 20 164/86 H 99 05/14/21 15:35 36.2 C L 68 20 168/98 H 100 05/14/21 15:26 36.2 C L 72 20 168/88 H 100 05/14/21 10:41 36.8 C 59 L 20 172/102 H 97 Pain Intensity Right Knee: Pain Intensity: 3 Transfer of Care Handoff Completed per policy Notes Mental Status: alert / awake / arousable Patient Amnestic to Procedure: Yes Nausea / Vomiting: adequately controlled Pain: adequately controlled Airway Patency, RR, SpO2: stable & adequate BP & HR: stable & adequate Hydration State: stable & adequate Neuraxial Anesthesia: was administered and sensory block is resolving Anesthetic Complications: no major complications apparent
[2021-05-14] MEDS ORDERED: cloNIDine HCL 0.1 MG TAB PO PRN (17:40)
[2021-05-14] MEDS ORDERED: TAMSULOSIN HCL 0.4 MG CAP PO PRN (17:40)
[2021-05-14] MEDS ORDERED: NALOXONE HCL 0.4 MG/1 ML VIAL/CARP IV PRN (17:40)
[2021-05-14] MEDS ORDERED: MAGNESIUM HYDROXIDE SUSP 30 ML UDC PO PRN (17:40)
[2021-05-14] MEDS ORDERED: METOCLOPRAMIDE HCL INJ 5 MG/ML 2 ML VIAL IV PRN (17:40)
[2021-05-14] MEDS ORDERED: bisacodyL 10 MG SUPP PR PRN (17:40)
[2021-05-14] MEDS ORDERED: ALUMINUM/MAGNESIUM SUSP 30 ML UDC PO PRN (17:40)
[2021-05-14] MEDS ORDERED: HYDROmorphone INJ 0.5 MG/0.5 ML SYR ONE (18:06)
[2021-05-14] MEDS: SODIUM CHLORIDE 0.9% 1000ML 1,000 ML IV SCH (18:51)
[2021-05-14] MEDS: oxyCODONE HCL IR 5 MG TAB (IMMEDIATE RELEASE) PO PRN (19:50)
[2021-05-14] MEDS: ACETAMINOPHEN 500 MG TAB PO SCH (21:07)
[2021-05-14] MEDS: ENOXAPARIN INJ 30 MG/0.3 ML SYR SQ SCH (21:07)
[2021-05-14] MEDS: TAPENTADOL HCL ER 50 MG TABCR PO SCH (21:07)
[2021-05-14] MEDS: PANTOprazole 40 MG TAB PO SCH (21:08)
[2021-05-14] MEDS: ceFAZolin 2000MG 2,000 MG/15 ML SYR IV SCH (21:08)
[2021-05-14] MEDS: DOCUSATE SODIUM 100 MG CAP PO SCH (21:09)
[2021-05-14] MEDS: SENNA 8.6 MG TAB PO SCH (21:09)
[2021-05-14] MEDS: ASCORBIC ACID 500 MG TAB PO SCH (21:09)
[2021-05-14] MEDS: AZELASTINE 0.1% SCH (23:08)
[2021-05-15] MEDS: oxyCODONE HCL IR 5 MG TAB (IMMEDIATE RELEASE) PO PRN ×4 (01:18→22:53)
[2021-05-15] MEDS: SODIUM CHLORIDE 0.9% 1000ML 1,000 ML IV SCH (01:25)
[2021-05-15] MEDS: HYDROmorphone INJ 0.5 MG/0.5 ML SYR IV PRN ×2 (04:19→10:34)
[2021-05-15] MEDS: ceFAZolin 2000MG 2,000 MG/15 ML SYR IV SCH (05:20)
[2021-05-15] MEDS: ACETAMINOPHEN 500 MG TAB PO SCH ×3 (05:21→22:53)
[2021-05-15 06:06] LABS: Hematocrit (blood only) 40.4 % (42-52); Hemoglobin 13.2 g/dL (14.0-18.0); Mean Corpuscular Hemoglobin 31.7 pg (25-34); Mean Corpuscular Hgb Conc 32.7 g/dL (32-36); Mean Corpuscular Volume 96.9 fL (80-100); Mean Platelet Volume 10.6 fL (7.4-10.4); Platelet Count 230 K/uL (130-400); RDW Coefficient of Variation 14.3 % (11.5-14.5); RDW Standard Deviation 50.2 fL (36.4-46.3); Red Blood Count 4.17 M/uL (4.7-6.1); White Blood Count 13.59 K/uL (4.8-10.8)
[2021-05-15 06:36] LABS: BUN Creatinine Ratio 12.1 (10-20); Calcium 8.4 mg/dl (8.5-10.1); Creatinine Clr Calc Pharmacy 64.2 ml/min; Est GFR (African American) 67.8 ml/min; Est GFR (Non-African American) 58.5 ml/min; Potassium 3.6 mmol/L (3.5-5.1)
[2021-05-15] MEDS ORDERED: dexAMETHasone 10 MG in SYRINGE 0 ML IV SCH (08:00)
[2021-05-15] MEDS: DOCUSATE SODIUM 100 MG CAP PO SCH ×2 (08:01→21:12)
[2021-05-15] MEDS: ASCORBIC ACID 500 MG TAB PO SCH ×2 (08:01→18:29)
[2021-05-15] MEDS: AZELASTINE 0.1% SCH ×3 (08:01→23:42)
[2021-05-15] MEDS: FELODIPINE 2.5 MG TABCR PO SCH ×3 (08:02→21:15)
[2021-05-15] MEDS: lisinopril 40 MG TAB PO SCH (08:02)
[2021-05-15] MEDS: FOLIC ACID 1 MG TAB PO SCH (08:02)
[2021-05-15] MEDS: ENOXAPARIN INJ 30 MG/0.3 ML SYR SQ SCH ×2 (08:02→21:13)
[2021-05-15] MEDS: TAPENTADOL HCL ER 50 MG TABCR PO SCH ×2 (08:09→21:12)
[2021-05-15] MEDS: MULTIVITAMIN TAB PO SCH (08:15)
--- NOTE | 2021-05-15 09:04 | Progress Notes ---
DATE OF SERVICE: 05/15/2021. SUBJECTIVE: An 80-year-old gentleman postop day 1 from a right knee replacement. He is doing okay. Having more pain than what he expected. He is frustrated that he cannot lift his leg. No chest radames n or shortness of breath. Not feeling dizzy or lightheaded. OBJECTIVE: VITAL SIGNS: Temperature 36.7. Vital signs stable. PHYSICAL EXAMINATION: Shows a pleasant elderly male. He is lying in bed, looks comfortable this mor john. Examination of the right leg reveals the leg to be well aligned. He can dorsiflex and plantar flex his foot appropriately. Dressings clean, dry and intact. He has got a pink toes with brisk ref ill. LABORATORY DATA: Hemoglobin 13.2. Hematocrit 40.4. White cell count 13.59. Electrolytes are stabl e. ASSESSMENT: An 80-year-old gentleman postop day 1 from a right knee replacement, doing reasonably we ll. He has had a little bit more pain than what he expected, but looks pretty comfortable this morni ng. He is neurologically intact. PLAN: 1. DVT prophylaxis including thigh-high TEDs, SCDs and he is going to be on Lovenox due to his diffi culty with aspirin. 2. PT, OT, weightbear as tolerated. Right total knee protocol. 3. Pain control, doing okay with current pain regimen. We are going to have to be careful not to ge t too much pain medicines in order to avoid confusion. 4. Disposition: He is planning to be discharged to home with some home health. He was hoping to go home today, but does not feel ready for that considering his pain and legs immobility. We will do t herapy today and see how he does and hopefully discharge tomorrow with home health. Job ID: [id number]
[2021-05-15] MEDS ORDERED: Nursing to Pharmacy Communication SCH (13:30)
[2021-05-15] MEDS: PANTOprazole 40 MG TAB PO SCH (21:12)
[2021-05-15] MEDS: SENNA 8.6 MG TAB PO SCH (21:12)
[2021-05-16] MEDS: ACETAMINOPHEN 500 MG TAB PO SCH ×3 (06:24→22:48)
[2021-05-16] MEDS: oxyCODONE HCL IR 5 MG TAB (IMMEDIATE RELEASE) PO PRN ×3 (06:28→22:48)
[2021-05-16] MEDS ORDERED: TRIAMTERENE/HCTZ 37.5/25MG TAB PO SCH (09:00)
[2021-05-16] MEDS: AZELASTINE 0.1% SCH ×2 (09:29→15:26)
[2021-05-16] MEDS: DOCUSATE SODIUM 100 MG CAP PO SCH ×2 (09:29→21:18)
[2021-05-16] MEDS: ASCORBIC ACID 500 MG TAB PO SCH ×3 (09:29→17:29)
[2021-05-16] MEDS: FOLIC ACID 1 MG TAB PO SCH (09:30)
[2021-05-16] MEDS: lisinopril 40 MG TAB PO SCH (09:30)
[2021-05-16] MEDS: MULTIVITAMIN TAB PO SCH ×2 (09:30→10:17)
[2021-05-16] MEDS: ENOXAPARIN INJ 30 MG/0.3 ML SYR SQ SCH ×2 (09:31→21:18)
[2021-05-16] MEDS: TAPENTADOL HCL ER 50 MG TABCR PO SCH ×2 (09:32→21:17)
--- NOTE | 2021-05-16 09:50 | Progress Notes ---
DATE OF SERVICE: 05/16/2021. SUBJECTIVE: An 80-year-old gentleman postop day 2 from a right knee replacement. He is doing quite a bit better this morning. Pain is a little bit better. He was getting around a little bit better y afternoon. No chest pain or shortness of breath. Not feeling dizzy or lightheaded. OBJECTIVE: VITAL SIGNS: Temperature 36.3. Vital signs stable. PHYSICAL EXAMINATION: GENERAL: Shows a pleasant, elderly male. He is sitting on bed, looks comfortable. EXTREMITIES: Examination of the right leg reveals the leg to be well aligned. Dressing is clean, dr cristy and intact. He can dorsiflex and plantarflex his foot appropriately. He is neurologically intact. IMPRESSION: An 80-year-old gentleman postoperative day 2 from right knee replacement, doing okay. D oing quite a bit better, but still limited functionally. Medically appears stable. Still requiring quite a bit of assistance to get around. PLAN: 1. DVT prophylaxis includes thigh-high TEDs, SCDs and Lovenox for 2 weeks. 2. PT, OT, weightbear as tolerated. Right total knee protocol. 3. Pain control, doing okay with current pain regimen. 4. Disposition: We will try to make a decision on whether he is to go to rehab or home. He has mad e significant improvements over the past 24 hours. We will see how things go today, try and make a d ecision tomorrow about home versus rehab. I would favor rehab as I think it puts a pretty big stress on his , which may be difficult. We will see how therapy goes today. Job ID: [id number]
[2021-05-16] MEDS: PANTOprazole 40 MG TAB PO SCH (21:17)
[2021-05-16] MEDS: SENNA 8.6 MG TAB PO SCH (21:18)
[2021-05-16] MEDS: FELODIPINE 2.5 MG TABCR PO SCH (21:18)
[2021-05-17] MEDS: AZELASTINE 0.1% SCH ×2 (00:22→07:25)
[2021-05-17] MEDS: ACETAMINOPHEN 500 MG TAB PO SCH ×2 (05:54→13:11)
[2021-05-17] MEDS: oxyCODONE HCL IR 5 MG TAB (IMMEDIATE RELEASE) PO PRN ×2 (07:24→13:15)
[2021-05-17] MEDS: DOCUSATE SODIUM 100 MG CAP PO SCH (07:25)
[2021-05-17] MEDS: ASCORBIC ACID 500 MG TAB PO SCH (08:45)
[2021-05-17] MEDS: MULTIVITAMIN TAB PO SCH (08:46)
[2021-05-17] MEDS: TAPENTADOL HCL ER 50 MG TABCR PO SCH (08:49)
[2021-05-17] MEDS: ENOXAPARIN INJ 30 MG/0.3 ML SYR SQ SCH (08:49)
[2021-05-17] MEDS: FOLIC ACID 1 MG TAB PO SCH (08:51)
[2021-05-17] MEDS: lisinopril 40 MG TAB PO SCH (08:52)
[2021-05-17] MEDS ORDERED: metHOTREXate sodium 2.5 MG TAB PO SCH ×2 (09:00→20:00)
--- NOTE | 2021-05-17 09:14 | Progress Notes ---
DATE OF SERVICE: 05/17/2021. SUBJECTIVE: An 80-year-old gentleman postop day 3 from a right knee replacement. He is making gradu al gains, but still requiring quite a bit of assistance. No chest pain or shortness of breath. Pain seems to be under better control. He has had a couple large bowel movements and would like off some of the stool softeners. OBJECTIVE: VITAL SIGNS: Temperature 36.6. Vital signs stable. PHYSICAL EXAMINATION: GENERAL: Shows a pleasant elderly male. He is lying in bed, looks pretty comfortable. EXTREMITIES: Examination of the right leg reveals the leg to be well aligned. He does have a little bloody drainage in the front of his dressing. Some moderate swelling. He can dorsiflex and plantar flex his foot appropriately. NEUROLOGIC: He is neurologically intact. ASSESSMENT: An 80-year-old gentleman postoperative day 3 from right knee replacement, doing better. He is making some gradual gains, but still requiring quite a bit of assistance. He has decided appr opriately to look into rehabilitation options. PLAN: 1. DVT prophylaxis includes thigh-high TEDs, SCDs and Lovenox for 2 weeks due to GI INTOLERANCE WITH NSAIDS AND ASPIRIN. 2. PT, OT, weightbear as tolerated. Right total knee protocol. 3. Pain control, doing okay with current pain regimen. Pain seems to be under better control. 4. Bowel movements: He has had a couple good bowel movements and would like off some of the stool so fteners. We will stop his Senokot. Continue on the Colace. 5. Disposition: Plan to discharge to a rehab. We will have rn social work work on that today. Job ID: [id number]
[2021-05-17] MEDS ORDERED: Nursing to Pharmacy Communication SCH (09:15)
--- NOTE | 2021-05-20 06:32 | Discharge Summary ---
Date of Service May 20, 2021 Discharge Data Procedures Performed Operation Date: 05/14/21 12:30 Actual Procedures [facility] Total Knee Arthroplasty(Right) - Leonardo Curtis MD Hospital Course (1) Status post total right knee replacement: This is a 80 year old patient admitted on 05/14/21 and underwent total knee arthroplasty. He tolerated the procedure well and there were no complications. Transferred to the PACU post op and later to the orthopedic floor for further care. He was given ancef for antibiotic prophylaxis. He was also given POP stockings, SCDs, and lovenox for DVT prophylaxis. Hemoglobin, hematocrit, and vital signs were monitored during his hospital stay and remained stable. Did not require any blood transfusions. There were no complications during his hospital stay. By post op day #3 the patient was tolerating a regular diet, pain was reasonably controlled with oral pain medicine, and he was participating in physical therapy. On post op day #3 the patient was discharged to a rehab facility. He was given printed discharge instructions including prescriptions for extra strength tylenol, lovenox, and oxycodone. Continue physical therapy, weight subhash ring as tolerated. Continue POP stockings. Follow up approximately 2 weeks post op or sooner if there are problems or concerns. Coding Level of Care Code None Diagnoses Status post total right knee replacement Z96.651
== END 2021-05-17 14:46 ==
LOC: ASU 09:59 → 3E 09:59

== ENCOUNTER 2021-10-26 03:55 | Inpatient (IN) ==
[2021-10-26] MEDS ORDERED: SODIUM CHLORIDE 0.9% 1000ML 1,000 ML IV ONE ×2 (04:33→05:52)
--- NOTE | 2021-10-26 04:38 | Emergency Department Note ---
Impression & Plan Symptomatic bradycardia, Acute hypotension, Near syncope, Somnolence ED Provider Note Name: NILESH GONZALEZ Age: 80 Sex: M Arrives Via: Ambulance Informant: Patient, Wifee ED Provider: Jhony Duarte MD Chief Complaint: hypotension Impression: As per impressions above Medical Decision Making: Pleasant 80-year-old gentleman with a history of A. fib on anticoagulation in addition to extensive other past medical history arrives for evaluation of hypotension. Patient was severely bradycardic for EMS and thus they gave him atropine in route with improvement in heart rate and blood pressure. Patient has been somnolent and exhausted for the last few days which I suspect is due to severe bradycardia. His heart rate is in the 30s and 40s. He did have 2 episodes of hypotension both which responded to 1 L normal saline and he did not require further atropine nor did we need to start IV dopamine at this time. Patient is answering all questions but is somewhat somnolent. He has no headache nor neck pain or neurologic deficits no recent falls/trauma thus I do not feel CT of the head is indicated at this time. Patient has no chest pain, shortness of breath, thus CTA of chest is not indicated at this time either. Labs are essentially unremarkable clued and a negative troponin. EKG with A. fib and severe bradycardia. Monitor does note periodic heart rate down to 30 as well. Patient was quite thirsty on arrival and by exam he is quite dehydrated this giving 2 L and not concerned about significant fluid overload and his breathing and oxygenation remained stable throughout the entire event. at bedside throughout at all and on board with plan. Hospitalist was consulted for admission and I did reach out to cardiology however they had not responded by time of admission. This was relayed to the hospital service as well. I do not find any clear evidence that there is an infectious etiology going on. He is not febrile has no infectious symptoms. His hypotension is likely secondary to his severe bradycardia and is cardiac in nature. We'll hold on any antibiotics unless further infectious etiology appears. Prior Medical Record and Triage/Nursing Notes reviewed by Me Additional history obtained from chart and Differentials:Infection, dehydration, metabolic abnormality, hypo/hyperglycemia, electrolyte disturbance, anemia, hypoxia, cardiac sources, intracerebral event, toxicologic, neurologic, as well as other pathologies. amongst other pathologies. Vital Signs: reviewed and remarkable for hypotension, bradycardia Interventions: Normal saline bolus 2 L IV Labs:Reviewed and remarkable for no significant abnormalities Imagin view chest x-ray no acute findings EKG:Per My Interpretation: Indication Weakness: Afib Curtis 43 bpm, qtc 441. No Ectopy. No Ischemia. Compared to EKG 09/09/21 heart rate is much lower Cardiac/Tele Monitoring: Cardiac Monitoring: An Order was placed for continuous cardiac monitoring. The monitor shows a rate of 40 with an afib curtis rhythm. Consults:Dr Ever NOEL Hospitalist Plan: Disposition:Hospitalization. Condition: Good History of Present Illness:This is an 80-year-old male who arrives for evaluation of syncope. Patient with weakness and lethargy throughout the evening and notes he passed out. He did not fall or hit his head. He was sitting down at the time. She notes he is in and out of consciousness periodically. EMS arrived and noted that his blood pressure was in the 80s and his heart rate was in the 30s. He was given atropine with improvement in heart rate. Patient is more interactive and cooperative. Patient notes he feels like his mouth is very dry and that he cannot swallow well. He denies any other symptoms. notes he seems a little bit out of it but is much improved from earlier. He has had no falls, head injuries, headache. He has had no neurologic deficits other than this episode of altered mental status this episode of altered mental status. Other than the atropine he has no medications prior to arrival. Exertion seems to make things worse rest seems to make it better. He has been eating and drinking well the last few days. Patient denies any chest pain, shortness of breath, fevers, nausea, vomiting, back pain, abd ominal pain, urinary symptoms, diarrhea, leg swelling, calf pain, headache, neck pain or other symptoms. He does have chronic back pain but there is been no change in that. Of note EMS gave patient 750 ml of IV fluids prior to arrival ROS: See above HPI for pertinent positives & negatives. A total of 10 systems reviewed and were otherwise negative. Past Medical History:See Below Past Surgical History:See Below Family History:See Below Social History:See Below Home Medications:See Below Allergies:NSAIDs, latex, aspirin Vitals:Blood Pressure: 114/69, Pulse 52, RR 18, T 36.6C, O2 95% on RA Physical Exam: GENERAL: Patient is very tired appearing and in minimal distress. EYES: No scleral icterus, unremarkable pupils. ENT: Mucous membranes dry, no nasal congestion. NECK: No masses appreciated, nomeningismus, trachea is midline. RESPIRATORY: No dyspnea. Clear to auscultation and equal bilaterally. No wheeze, no rhonchi. CARDIOVASCULAR: Regular rate and rhythm.No murmurs, rubs, gallops appreciated. GASTROINTESTINAL: Abdomen soft, non-tender, no peritonitis.Bowel sounds positive.No masses appreciated. BACK: No midline tenderness, no CVA tenderness EXTREMITIES: Normal motion all extremities, no cyanosis, no edema. NEUROLOGIC: Patient is somnolent with slow speech and in otherwise no distress answering questions appropriately no acute motor or sensory deficits, no focal weakness, cranial nerves grossly intact. SKIN: No rash, no jaundice, no diaphoresis. PSYCH: Appropriate GCS: 15 ED Course: Times/Reassessments: Patient with 2 episodes of hypotension in setting of significant bradycardia which both responded well to IV fluids which patient tolerated well. Blood pressure much improved though heart rate still in the 30s and 40s at time of admission by hospitalist. Critical Care: I have personally spent 35 minutes of critical care time in the direct management of this patient. Acute symptomatic hypotension secondary to bradycardia requiring fluid resuscitation. This was a life/limb threatening event. This 35 minutes is in excess of all separately billable procedures. Jhony Duarte MD Past Med/Surg History Medical History (Updated 10/26/21 @ 07:52 by Jhony Duarte MD) Acid reflux Acute bronchitis Acute sinusitis Anxiety disorder Asthma Recent exacerbation per PCP visit 04/28/21- given abx (refused steroids d/t up coming surgery) > symptoms resolved per PAT visit 05/03 Atrial flutter hx Cervical radiculopathy Cervical spondylosis lumbar Effusion, right knee H/O: GI bleed Hx recurrent (several years ago) HTN (hypertension) Left knee DJD Osteoarthritis Permanent atrial fibrillation Not chronically anticoagulated d/t recurrent GI bleeding, follows with Dr. 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) Hx of cataract surgery R/L Family History Father , age 66 of an [place] Myocardial infarction Mother , age 83 of dementia Alzheimer disease Uncle Cancer Denies family history of Ovarian cancer Prostate cancer Breast cancer Colorectal cancer Social History Smoking Status: Never smoker Second Hand Exposure: No; Hx Alcohol Use: No Hx Substance Use: No Preferred Language: [place] Communication Ability: Effective Visual Impairment: No Limitations Hearing Ability: Normal Intelligence Engineer Required: No Beliefs That Will Affect Care: None marital status: Current Living Situation: Spouse current occupational status: retired other: 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 [place] Feels Safe at Home: Yes Childhood Exposure to Second-Hand Smoke: Yes Dental Care, Regularly: Yes Physical Activity Frequency: 1-2 Times per Week Seatbelt Use: always Sunscreen Use: No Assistive Devices: Hearing Aid - Bilateral and Walker Allergies Allergies Allergy/AdvReac Type Severity Reaction Status Date / Time NSAIDS (Non-Steroidal Allergy Severe Bleeding Verified 10/26/21 07:36 Anti-Inflamma latex Allergy Intermediate Skin Verified 10/26/21 07:36 redness aspirin AdvReac Severe Bleeding Verified 10/26/21 07:36 Home Meds Home Medications Medication Instructions Recorded Confirmed folic acid 1 mg tablet 1 mg PO QAM 07/06/18 10/26/21 methotrexate sodium 2.5 mg tablet 15 mg PO WK 06/28/19 10/26/21 lisinopril 40 mg tablet 40 mg PO QAM 04/29/21 10/26/21 pantoprazole 40 mg tablet,delayed 40 mg PO QDD 04/29/21 10/26/21 release (Protonix) budesonide-formoterol HFA 160 1 inh INHALATION DAILY PRN 10/26/21 10/26/21 mcg-4.5 mcg/actuation aerosol inhaler (Symbicort) cholecalciferol (vitamin D3) 1,250 50,000 unit PO UD 10/26/21 10/26/21 mcg (50,000 unit) capsule felodipine 2.5 mg tablet,extended 2.5 mg PO HS 10/26/21 10/26/21 release 24 hr hydroxychloroquine 200 mg tablet 200 mg PO QAM 10/26/21 10/26/21 triamterene 37.5 1 tab PO QAM 10/26/21 10/26/21 mg-hydrochlorothiazide 25 mg tablet Previous Rx's Medication Instructions Recorded azelastine 137 mcg (0.1 %) nasal 1 spray INTRANASAL DAILY PRN #30 ml 04/22/21 spray aerosol clonidine HCl 0.1 mg tablet 0.1 mg PO DAILY PRN #90 tab 08/31/21 oxycodone-acetaminophen 10 mg-325 1 tab PO Q6H PRN #120 tab 10/01/21 mg tablet Results & Data (ED) Vital Signs Vital Signs - 24 hr 10/26/21 04:15 10/26/21 06:11 10/26/21 07:35 Temperature 36.6 C Temperature Source Oral Pulse Rate 52 L Pulse Rate [Finger] 39 L 47 L Respiratory Rate 18 18 18 Blood Pressure 114/69 Blood Pressure [Left Arm] 114/88 132/71 Blood Pressure Mean 84 Blood Pressure Mean [Left Arm] 96 91 Blood Pressure Position [Left Arm] Lying Pulse Oximetry 95 96 98 Oxygen Delivery Method Room Air Sepsis Recent Fever Within 48 Hours No Sepsis New/Unexplained Change in Mental Status No Sepsis Action Taken by Nursing No Action Required Laboratory Data Result diagrams: 10/26/21 04:15 10/26/21 04:15 Lab Results 10/26/21 10/26/21 10/26/21 Range/Units 04:15 04:15 04:15 WBC 9.36 (4.8-10.8) K/uL RBC 4.97 (4.7-6.1) M/uL Hgb 14.7 (14.0-18.0) g/dL Hct 45.3 (42-52) % MCV 91.1 (80-100) fL MCH 29.6 (25-34) pg MCHC 32.5 (32-36) g/dL RDW Std Deviation 52.1 H (36.4-46.3) fL RDW Coeff of Ankit 15.6 H (11.5-14.5) % Plt Count 269 (130-400) K/uL MPV 11.1 H (7.4-10.4) fL Immature Gran % (Auto) 0.3 % Neut % (Auto) 69.4 % Lymph % (Auto) 15.3 % Titus % (Auto) 12.7 % Eos % (Auto) 2.0 % Baso % (Auto) 0.3 % Neut # (Auto) 6.49 (1.4-6.5) K/uL Lymph # (Auto) 1.43 (1.2-3.4) K/uL Titus # (Auto) 1.19 H (0.11-0.59) K/uL Eos # (Auto) 0.19 (0-0.5) K/uL Baso # (Auto) 0.03 (0-0.2) K/uL Immature Gran # (Auto) 0.03 H (0.00-0.02) K/uL PT 10.3 (9.0-12.0) Seconds INR 1.0 (0.9-1.1) Sodium 133 L (136-145) mmol/L Potassium 3.9 (3.5-5.1) mmol/L Chloride 96 L (98-107) mmol/L Carbon Dioxide 29 (21-32) mmol/L Anion Gap 8.0 (3-11) BUN 15 (7-18) mg/dl Creatinine 1.10 (0.6-1.4) mg/dl Est Cr Clr Drug Dosing Not Reportable Est GFR ( Amer) 73.1 ml/min Est GFR (Non-Af Amer) 63.1 ml/min BUN/Creatinine Ratio 14.0 (10-20) Glucose 102 H (70-99) mg/dl Calcium 9.3 (8.5-10.1) mg/dl Magnesium 2.2 (1.8-2.4) mg/dl Total Bilirubin 0.5 (0.2-1) mg/dl Direct Bilirubin 0.2 (0-0.2) mg/dl AST 24 (15-37) U/L ALT 22 (12-78) Alkaline Phosphatase 95 (45-117) U/L Troponin I < 0.015 (0-0.045) ng/ml NT-Pro-B Natriuret Pep 1548 (0-1800) pg/ml Total Protein 7.2 (6.4-8.2) gm/dl Albumin 3.6 (3.4-5.0) gm/dl Lipase 78 (73-393) U/L TSH 4.130 (0.300-4.500) uIu/ml Urine Color Urine Appearance (Clear) Urine pH (4.5-7.5) Ur Specific Hammond (1.000-1.030) Urine Protein (Negative) Urine Glucose (UA) (Negative) Urine Ketones (Negative) Urine Blood (Negative) Urine Nitrite (Negative) Urine Bilirubin (Negative) Urine Urobilinogen (Negative) Ur Leukocyte Esterase (Negative) SARS-CoV-2, RNA, NAAT (NEGATIVE) 10/26/21 10/26/21 Range/Units 04:40 07:15 WBC (4.8-10.8) K/uL RBC (4.7-6.1) M/uL Hgb (14.0-18.0) g/dL Hct (42-52) % MCV (80-100) fL MCH (25-34) pg MCHC (32-36) g/dL RDW Std Deviation (36.4-46.3) fL RDW Coeff of Ankit (11.5-14.5) % Plt Count (130-400) K/uL MPV (7.4-10.4) fL Immature Gran % (Auto) % Neut % (Auto) % Lymph % (Auto) % Titus % (Auto) % Eos % (Auto) % Baso % (Auto) % Neut # (Auto) (1.4-6.5) K/uL Lymph # (Auto) (1.2-3.4) K/uL Titus # (Auto) (0.11-0.59) K/uL Eos # (Auto) (0-0.5) K/uL Baso # (Auto) (0-0.2) K/uL Immature Gran # (Auto) (0.00-0.02) K/uL PT (9.0-12.0) Seconds INR (0.9-1.1) Sodium (136-145) mmol/L Potassium (3.5-5.1) mmol/L Chloride (98-107) mmol/L Carbon Dioxide (21-32) mmol/L Anion Gap (3-11) BUN (7-18) mg/dl Creatinine (0.6-1.4) mg/dl Est Cr Clr Drug Dosing Est GFR ( Amer) ml/min Est GFR (Non-Af Amer) ml/min BUN/Creatinine Ratio (10-20) Glucose (70-99) mg/dl Calcium (8.5-10.1) mg/dl Magnesium (1.8-2.4) mg/dl Total Bilirubin (0.2-1) mg/dl Direct Bilirubin (0-0.2) mg/dl AST (15-37) U/L ALT (12-78) Alkaline Phosphatase (45-117) U/L Troponin I (0-0.045) ng/ml NT-Pro-B Natriuret Pep (0-1800) pg/ml Total Protein (6.4-8.2) gm/dl Albumin (3.4-5.0) gm/dl Lipase (73-393) U/L TSH (0.300-4.500) uIu/ml Urine Color Yellow Urine Appearance Clear (Clear) Urine pH 8.0 H (4.5-7.5) Ur Specific Hammond 1.007 (1.000-1.030) Urine Protein Negative (Negative) Urine Glucose (UA) Negative (Negative) Urine Ketones Negative (Negative) Urine Blood Negative (Negative) Urine Nitrite Negative (Negative) Urine Bilirubin Negative (Negative) Urine Urobilinogen Negative (Negative) Ur Leukocyte Esterase Negative (Negative) SARS-CoV-2, RNA, NAAT NEGATIVE (NEGATIVE) Administered Medications Discontinued Medications Sodium Chloride (Nss 1000ml) 1,000 mls @ 999 mls/hr IV .Q1H1M ONE Stop: 10/26/21 05:33 Last Infusion: 10/26/21 05:16 Dose: 0 mls/hr Documented by: [id number] Admin: 10/26/21 04:15 Dose: 999 mls/hr Documented by: [id number] Sodium Chloride (Nss 1000ml) 1,000 mls @ 999 mls/hr IV .Q1H1M ONE Stop: 10/26/21 06:52 Last Infusion: 10/26/21 07:19 Dose: 0 mls/hr Documented by: [id number] Admin: 10/26/21 05:56 Dose: 999 mls/hr Documented by: [id number] Discharge Plan Visit Data Chief Complaint: Cardiac Assessment Stated Complaint: CHEST PAIN ED Provider: Jhony Duarte Discharge Problem: Symptomatic bradycardia, Acute hypotension, Near syncope, Somnolence Forms Stand Alone Forms: [facility] Prescriptions Prescriptions: No Action folic acid 1 mg tablet 1 mg PO QAM RF: 0 azelastine 137 mcg (0.1 %) aerosol,spray 1 spray intranasal DAILY PRN (Reason: congestion) Qty: 30 RF: 0 clonidine HCl 0.1 mg tablet 0.1 mg PO DAILY PRN (Reason: hypertension) Qty: 90 RF: 3 oxycodone-acetaminophen 10-325 mg tablet 1 tab PO Q6H PRN (Reason: pain) Qty: 120 RF: 0 methotrexate sodium 2.5 mg Tablet 15 mg PO WK RF: 0 pantoprazole [Protonix] 40 mg tablet,delayed release (DR/EC) 40 mg PO QDD RF: 0 lisinopril 40 mg tablet 40 mg PO QAM RF: 0 budesonide-formoterol [Symbicort] 160-4.5 mcg/actuation HFA aerosol inhaler 1 inh INHALATION DAILY PRN (Reason: Shortness Of Breath) RF: 0 felodipine 2.5 mg tablet extended release 24 hr 2.5 mg PO HS RF: 0 triamterene-hydrochlorothiazid 37.5-25 mg tablet 1 tab PO QAM RF: 0 hydroxychloroquine 200 mg tablet 200 mg PO QAM RF: 0 cholecalciferol (vitamin D3) 1,250 mcg (50,000 unit) capsule 50,000 unit PO UD RF: 0 Referrals Referrals: Bj Calvillo MD [Primary Care Provider] -
[2021-10-26 04:44] LABS: Basophils # (auto) 0.03 K/uL (0-0.2); Basophils % (auto) 0.3 %; Eosinophils # (auto) 0.19 K/uL (0-0.5); Hematocrit (blood only) 45.3 % (42-52); Hemoglobin 14.7 g/dL (14.0-18.0); Immature Granulocytes # (auto) 0.03 K/uL (0.00-0.02); Immature Granulocytes % (auto) 0.3 %; Lymphocytes # (auto) 1.43 K/uL (1.2-3.4); Lymphocytes % (auto) 15.3 %; Mean Corpuscular Hemoglobin 29.6 pg (25-34); Mean Corpuscular Hgb Conc 32.5 g/dL (32-36); Mean Corpuscular Volume 91.1 fL (80-100); Mean Platelet Volume 11.1 fL (7.4-10.4); Monocytes # (auto) 1.19 K/uL (0.11-0.59); Monocytes % (auto) 12.7 %; Neutrophils # (auto) 6.49 K/uL (1.4-6.5); Neutrophils % (auto) 69.4 %; Platelet Count 269 K/uL (130-400); RDW Coefficient of Variation 15.6 % (11.5-14.5); RDW Standard Deviation 52.1 fL (36.4-46.3); Red Blood Count 4.97 M/uL (4.7-6.1); White Blood Count 9.36 K/uL (4.8-10.8)
[2021-10-26 04:55] LABS: Prothrombin Time 10.3 Seconds (9.0-12.0)
[2021-10-26 05:14] LABS: Alanine Aminotransferase 22 (12-78); Albumin Level 3.6 gm/dl (3.4-5.0); Aspartate Aminotransferase 24 U/L (15-37); Bilirubin Direct 0.2 mg/dl (0-0.2); Blood Urea Nitrogen 15 mg/dl (7-18); Calcium 9.3 mg/dl (8.5-10.1); Carbon Dioxide 29 mmol/L (21-32); Chloride 96 mmol/L (98-107); Est GFR (African American) 73.1 ml/min; Est GFR (Non-African American) 63.1 ml/min; Glucose 102 mg/dl (70-99); Lipase 78 U/L (73-393); Magnesium 2.2 mg/dl (1.8-2.4); Potassium 3.9 mmol/L (3.5-5.1); Sodium 133 mmol/L (136-145)
[2021-10-26 05:25] LABS: Alkaline Phosphatase 95 U/L (45-117); Bilirubin,Total 0.5 mg/dl (0.2-1); NT Pro B Type Natriuretic Pept 1548 pg/ml (0-1800); Total Protein 7.2 gm/dl (6.4-8.2); Troponin I < 0.015 ng/ml (0-0.045)
--- NOTE | 2021-10-26 07:37 | History & Physical Report ---
Date of Service October 26, 2021 Assessment & Plan (1) Bradycardia: Plan: 80yo male with history of atrial fibrillation presenting with bradycardia - HR of 39 on arrival, episodes of hypotension. Also with increased somnolence, dizziness and episodes of mild confusion and decreased responsiveness. Patient has received 2L NSS in the ER - presently with HR of 49, systolic pressure is stable. He is responsive and appropriate. Briefly discussed possibility of pacemaker placement. Patient is hesitant to proceed with procedure at this time. -Hold antihypertensive agents -External pacer pad -Cardiology consultation appreciated (2) Rheumatoid arthritis: Plan: Chronic -Continue Hydroxychloroquin and Methotrexate (3) GERD (gastroesophageal reflux disease): Plan: Chronic -Continue Protonix (4) Dyslipidemia: Plan: Chronic -No medications at this time (5) Permanent atrial fibrillation: Plan: Chronic -Presently with bradycardia, ?need for pacer -Cardiology consultation appreciated (6) HTN (hypertension): Plan: Low blood pressure on arrival, now improved after 2L NSS -Hold antihypertensives -Monitor History of Present Illness Chief Complaint: Bradycardia Primary Care Provider: Bj Calvillo MD [place] is an 80yo male with history of atrial flutter, HTN and RA presenting with bradycardia and hypotension. Patient has been feeling ill over the last day. His blood pressure this morning prior to arrival was found to be low - initially 158 then decreased to 88 mmHg. He had some dizziness, somnolence and reports periods of minimal responsiveness and episodes of diaphoresis. Patient was administered Atropine by EMS prior to arrival HR 39-59 in ER Patient complains of feeling dehydrated. States that his mouth is very dry and he is very thirsty. ER Course: 2L nss Allergies Allergy/AdvReac Type Severity Reaction Status Date / Time NSAIDS (Non-Steroidal Allergy Severe Bleeding Verified 10/26/21 07:36 Anti-Inflamma latex Allergy Intermediate Skin Verified 10/26/21 07:36 redness aspirin AdvReac Severe Bleeding Verified 10/26/21 07:36 Home Medications Medication Instructions Recorded Confirmed Type folic acid 1 mg tablet 1 mg PO QAM 07/06/18 10/26/21 History methotrexate sodium 2.5 mg tablet 15 mg PO WK 06/28/19 10/26/21 History azelastine 137 mcg (0.1 %) nasal 1 spray INTRANASAL DAILY PRN #30 ml 04/22/21 09/09/21 Rx spray aerosol lisinopril 40 mg tablet 40 mg PO QAM 04/29/21 10/26/21 History pantoprazole 40 mg tablet,delayed 40 mg PO HS 04/29/21 10/26/21 History release (Protonix) cholecalciferol (vitamin D3) 1,250 50,000 unit PO .COMPLEX #12 cap 06/18/21 09/09/21 Rx mcg (50,000 unit) capsule felodipine 2.5 mg tablet,extended 2.5 mg PO DAILY #90 tab 08/13/21 10/26/21 Rx release 24 hr clonidine HCl 0.1 mg tablet 0.1 mg PO DAILY PRN #90 tab 08/31/21 10/26/21 Rx oxycodone-acetaminophen 10 mg-325 1 tab PO Q6H PRN #120 tab 10/01/21 10/26/21 Rx mg tablet triamterene 37.5 1 tab PO DAILY #90 tab 10/04/21 10/26/21 Rx mg-hydrochlorothiazide 25 mg tablet hydroxychloroquine 200 mg tablet 200 mg PO DAILY #90 tab 10/19/21 10/19/21 Rx famotidine 40 mg tablet 40 mg PO DAILY 10/26/21 History famotidine 40 mg tablet 40 mg PO DAILY 10/26/21 10/26/21 History Past Med/Surg History Medical History (Updated 10/26/21 @ 07:44 by Senia Curtis DO) Acid reflux Acute bronchitis Acute sinusitis Anxiety disorder Asthma Recent exacerbation per PCP visit 04/28/21- given abx (refused steroids d/t upcoming surgery) > symptoms resolved per PAT visit 05/03 Atrial flutter hx Cervical radiculopathy Cervical spondylosis lumbar Effusion, right knee H/O: GI bleed Hx recurrent (several years ago) HTN (hypertension) Left knee DJD Osteoarthritis Permanent atrial fibrillation Not chronically anticoagulated d/t recurrent GI bleeding, follows with Dr. 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) Hx of cataract surgery R/L Family History Father , age 66 of an [place] Myocardial infarction Mother , age 83 of dementia Alzheimer disease Uncle Cancer Denies family history of Ovarian cancer Prostate cancer Breast cancer Colorectal cancer Social History Smoking Status: Never smoker Second Hand Exposure: No; Hx Alcohol Use: No Hx Substance Use: No Preferred Language: Syrian Communication Ability: Effective Visual Impairment: No Limitations Hearing Ability: Normal Care Management Assistant Required: No Beliefs That Will Affect Care: None marital status: Current Living Situation: Spouse current occupational status: 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 [place] Feels Safe at Home: Yes Childhood Exposure to Second-Hand Smoke: Yes Dental Care, Regularly: Yes Physical Activity Frequency: 1-2 Times per Week Seatbelt Use: always Sunscreen Use: No Assistive Devices: Hearing Aid - Bilateral and Walker Review of Systems Review of Systems: All systems reviewed & are unremarkable except as noted in HPI & below Physical Exam Physical Exam: General: patient resting comfortably, NAD, non-toxic in appearance, AA&O to person and location with some confusion to date Skin: warm, dry, intact, no rashes or lesions HEENT: NC/AT, PERRL, EOMI, anicteric sclera, conjunctiva without injection, external ear normal to inspection and nontender, nares patent, moist mucus membranes, dentition intact, no oropharyngeal lesions, neck supple, trachea midline, no LAD, no thyromegaly, no JVD Heart: +S1/S2, regular, bradycardia, no m/r/g Lungs: equal air entry bilaterally, no rales/rhonchi/wheezes Abd: +BS, soft, NT/ND, no masses/organomegaly/ascites Ext: warm, 2+ pulses in UE/LE bilaterally, no clubbing/cyanosis or edema Neuro: nonfocal, patient AA&O x 2, speech intact, no facial droop, moving all extremities on command with equal strength 5/5 Results & Data Results & Data ([facility]) Vital Signs (Past 12 Hours) Vital Signs Temp Pulse Pulse Resp BP BP Pulse Ox 10/26/21 06:11 39 L 18 114/88 96 10/26/21 04:15 36.6 C 52 L 18 114/69 95 Laboratory Results Laboratory Results WBC 9.36 K/uL (4.8-10.8) 10/26/21 04:15 RBC 4.97 M/uL (4.7-6.1) 10/26/21 04:15 Hgb 14.7 g/dL (14.0-18.0) 10/26/21 04:15 Hct 45.3 % (42-52) 10/26/21 04:15 MCV 91.1 fL (80-100) 10/26/21 04:15 MCH 29.6 pg (25-34) 10/26/21 04:15 MCHC 32.5 g/dL (32-36) 10/26/21 04:15 RDW Std Deviation 52.1 fL (36.4-46.3) H 10/26/21 04:15 RDW Coeff of Ankit 15.6 % (11.5-14.5) H 10/26/21 04:15 Plt Count 269 K/uL (130-400) 10/26/21 04:15 MPV 11.1 fL (7.4-10.4) H 10/26/21 04:15 Immature Gran % (Auto) 0.3 % 10/26/21 04:15 Neut % (Auto) 69.4 % 10/26/21 04:15 Lymph % (Auto) 15.3 % 10/26/21 04:15 Early % (Auto) 12.7 % 10/26/21 04:15 Eos % (Auto) 2.0 % 10/26/21 04:15 Baso % (Auto) 0.3 % 10/26/21 04:15 Neut # (Auto) 6.49 K/uL (1.4-6.5) 10/26/21 04:15 Lymph # (Auto) 1.43 K/uL (1.2-3.4) 10/26/21 04:15 Early # (Auto) 1.19 K/uL (0.11-0.59) H 10/26/21 04:15 Eos # (Auto) 0.19 K/uL (0-0.5) 10/26/21 04:15 Baso # (Auto) 0.03 K/uL (0-0.2) 10/26/21 04:15 Immature Gran # (Auto) 0.03 K/uL (0.00-0.02) H 10/26/21 04:15 PT 10.3 Seconds (9.0-12.0) 10/26/21 04:15 INR 1.0 (0.9-1.1) 10/26/21 04:15 Sodium 133 mmol/L (136-145) L 10/26/21 04:15 Potassium 3.9 mmol/L (3.5-5.1) 10/26/21 04:15 Chloride 96 mmol/L (98-107) L 10/26/21 04:15 Carbon Dioxide 29 mmol/L (21-32) 10/26/21 04:15 Anion Gap 8.0 (3-11) 10/26/21 04:15 BUN 15 mg/dl (7-18) 10/26/21 04:15 Creatinine 1.10 mg/dl (0.6-1.4) 10/26/21 04:15 Est Cr Clr Drug Dosing Not Reportable 10/26/21 04:15 Est GFR ( Amer) 73.1 ml/min 10/26/21 04:15 Est GFR (Non-Af Amer) 63.1 ml/min 10/26/21 04:15 BUN/Creatinine Ratio 14.0 (10-20) 10/26/21 04:15 Glucose 102 mg/dl (70-99) H 10/26/21 04:15 Calcium 9.3 mg/dl (8.5-10.1) 10/26/21 04:15 Magnesium 2.2 mg/dl (1.8-2.4) 10/26/21 04:15 Total Bilirubin 0.5 mg/dl (0.2-1) 10/26/21 04:15 Direct Bilirubin 0.2 mg/dl (0-0.2) 10/26/21 04:15 AST 24 U/L (15-37) 10/26/21 04:15 ALT 22 (12-78) 10/26/21 04:15 Alkaline Phosphatase 95 U/L (45-117) 10/26/21 04:15 Troponin I < 0.015 ng/ml (0-0.045) 10/26/21 04:15 NT-Pro-B Natriuret Pep 1548 pg/ml (0-1800) 10/26/21 04:15 Total Protein 7.2 gm/dl (6.4-8.2) 10/26/21 04:15 Albumin 3.6 gm/dl (3.4-5.0) 10/26/21 04:15 Lipase 78 U/L (73-393) 10/26/21 04:15 TSH 4.130 uIu/ml (0.300-4.500) 10/26/21 04:15 SARS-CoV-2, RNA, NAAT NEGATIVE (NEGATIVE) 10/26/21 04:40 ECG Additional Comments: EKG with - ?atrial fibrillation with rate 53, no acute ischemic changes Code Status & VTE Plan VTE Prophylaxis Plan VTE Prophylaxis will be ordered: Yes PG Care Time/CCT Total # of Minutes Spent Total Time Spent with Patient: Total time spent is greater than 50% in coordination of care (as documented) at patient's floor/unit and/or counseling patient: Coding Level of Care Code 79142 Initial Inpt Care Lvl 3 Diagnoses Rheumatoid arthritis M06.9 GERD (gastroesophageal reflux disease) K21.9 Dyslipidemia E78.5 Permanent atrial fibrillation I48.21 HTN (hypertension) I10 Bradycardia R00.1
[2021-10-26 07:38] LABS: Appearance Urine Clear (Clear); Bilirubin Urine Negative (Negative); Blood Urine Negative (Negative); Color Urine Yellow; Glucose Urine UA Negative (Negative); Ketones Urine Negative (Negative); Leukocyte Esterase Urine Negative (Negative); Nitrite Urine Negative (Negative); Protein Urine Negative (Negative); Specific Gravity Urine 1.007 (1.000-1.030); Urobilinogen Urine Negative (Negative)
[2021-10-26] MEDS ORDERED: ACETAMINOPHEN 325 MG TAB PO PRN (08:19)
[2021-10-26] MEDS ORDERED: oxyCODONE/ACETAMINOPHEN 10-325 TAB PO PRN (08:19)
--- NOTE | 2021-10-26 08:33 | XRay Report ---
XR chest 1V portable CLINICAL HISTORY: syncope. Evaluate cardiopulmonary status COMPARISON STUDY: 10/15/2021 TECHNIQUE: 1 view of the chest FINDINGS: Single frontal view of the chest demonstrates the heart to again be at the upper limits of normal to mildly enlarged. Compared to the previous study, there is a decreased inspiratory effort with elevati on of the hemidiaphragms and crowding of the bronchovascular markings at the lung bases and centrally . The lungs are clear of alveolar opacities. There is again evidence for a hiatal hernia in the retro cardiac space. There is no evidence for pleural effusion. There is no evidence for vascular congestio n. There is no acute osseous pathology. IMPRESSION: Compared to the previous examination, there is a decreased inspiratory effort with otherw ise no acute chest disease. ACT 112: Negative or not required by law. Electronically signed by: Triston Medina M.D. 10/26/2021 8:32 AM
[2021-10-26] MEDS ORDERED: FOLIC ACID 1 MG TAB PO SCH (09:00)
[2021-10-26] MEDS ORDERED: HYDROXYCHLOROQUINE SULFATE 200 MG TAB PO SCH (09:00)
[2021-10-26] MEDS ORDERED: FAMOTIDINE 40 MG TABLET PO SCH (09:00)
[2021-10-26] MEDS ORDERED: FLUTICASONE/VILANTEROL 200/25MCG 14 PUFFS/INHALER INH PRN (09:16)
[2021-10-26 09:58] LABS: Lyme Ab IgG w/WB Rflx Negative (Negative); Lyme Ab IgM w/WB Rflx Negative (Negative)
[2021-10-26] MEDS: PATIENT'S HEIGHT AND/OR WEIGHT NEEDED SCH ×4 (10:28→10:56)
--- NOTE | 2021-10-26 13:35 | XCELERA ---
[id number] \\[id number]
[2021-10-26 14:30] LABS: Basophils # (auto) 0.02 K/uL (0-0.2); Basophils % (auto) 0.2 %; Eosinophils # (auto) 0.14 K/uL (0-0.5); Eosinophils % (auto) 1.5 %; Hematocrit (blood only) 39.2 % (42-52); Immature Granulocytes # (auto) 0.01 K/uL (0.00-0.02); Immature Granulocytes % (auto) 0.1 %; Lymphocytes # (auto) 1.33 K/uL (1.2-3.4); Lymphocytes % (auto) 13.8 %; Mean Corpuscular Hemoglobin 30.1 pg (25-34); Mean Corpuscular Hgb Conc 33.2 g/dL (32-36); Mean Corpuscular Volume 90.7 fL (80-100); Mean Platelet Volume 10.7 fL (7.4-10.4); Monocytes # (auto) 1.09 K/uL (0.11-0.59); Monocytes % (auto) 11.3 %; Neutrophils # (auto) 7.05 K/uL (1.4-6.5); Neutrophils % (auto) 73.1 %; Platelet Count 228 K/uL (130-400); RDW Coefficient of Variation 15.5 % (11.5-14.5); RDW Standard Deviation 51.8 fL (36.4-46.3); Red Blood Count 4.32 M/uL (4.7-6.1); White Blood Count 9.64 K/uL (4.8-10.8)
[2021-10-26 14:47] LABS: BUN Creatinine Ratio 15.2 (10-20); Calcium 8.4 mg/dl (8.5-10.1); Creatinine Clr Calc Pharmacy 81.9 ml/min; Est GFR (African American) 85.1 ml/min; Est GFR (Non-African American) 73.4 ml/min; Potassium 4.3 mmol/L (3.5-5.1)
[2021-10-26 14:52] LABS: Troponin I 0.018 ng/ml (0-0.045)
[2021-10-26] MEDS ORDERED: SODIUM CHLORIDE 0.9% 1000ML 1,000 ML IV SCH (16:30)
--- NOTE | 2021-10-26 17:12 | Cardiology Consultation ---
Date of Consultation October 26, 2021 Assessment & Plan (1) Near syncope: (2) Bradycardia: (3) Permanent atrial fibrillation: (4) HTN (hypertension): 1. Presyncope: It is unclear the patient actually lost consciousness. According to the he would lean his head back and become unresponsive but did not lose postural tone. It seems that he has been quite fatigued and tired over the past few days. She seems to think he falls asleep much more rapidly than he did in the past. He certainly had an element of bradycardia. He also had an element of hypotension relative to his normal blood pressure. The etiology of these changes is unclear. Perhaps higher vagal tone especially in the setting abdominal complaints. 2. Bradycardia: He certainly has an element of bradycardia. We cannot assess his AV conduction due to his permanent atrial fibrillation. However, he does have a narrow complex QRS which suggests a more reliable conduction system overall. Think it is unclear if bradycardia was responsible for all of his symptoms. He has had low heart rates here in the emergency room but no symptoms. I think we can get a better understanding of the relationship between his heart rates in symptoms if he ambulates. If he feels well he could certainly be discharged home with continued monitoring. I think is very likely that some point he will require a pacemaker due to symptomatic bradycardia. However, I do not believe this is a life-threatening situation. After an extensive discussion with the patient he seems hesitant to commit to a pacemaker at this point and simply wants to assess his symptoms over a longer period of time. 3. Atrial fibrillation: No overt symptoms from the arrhythmia. Slow heart rates as noted above. Not on anticoagulation due to recurrent episodes of gastrointestinal hemorrhage even on nonsteroidal medication. 4. Hypertension: Blood pressure returned to normal. Unclear why he had lower blood pressures last evening. He did not appear to have any noncompliance with respect to medication. He seems to think he was dehydrated. He attributes this to persistent dry mouth. He was administered some fluid in the emergency room with improvement in the blood pressure. 5. Valvular heart disease: Mild aortic regurgitation and moderate mitral regurgitation. Not contributing to his current symptoms. This can be monitored over time. History of Present Illness Reason for Consultation: Bradycardia, dizziness Requesting Physician: Ever Attending Physician: Senia Curtis, DO History of Present Illness The patient is an 80-year-old gentleman with a history of hypertension who presented to the emergency room with symptoms of dizziness and presyncope. It seems that the patient was feeling well until yesterday evening. He stated that he began to experience some severe dizziness and lightheadedness. His checked his blood pressure and discovered that it was low. Generally speaking the patient has high blood pressure and he was noted to have a systolic blood pressure around 100. He was also noted to have a low heart rates sometimes in the 30 beats per minute range. Patient appeared to have some abdominal complaints as well. He apparently felt somewhat nauseated during this time fra me. He did not report diaphoresis. According to the he would have periods of unresponsiveness. He did not appear to lose postural tone or have true syncope. Based on the persistent and severe nature of his symptoms they contacted the clinic and were advised to go to the emergency room. His emergency room treatment consisted primarily of fluid administration. According to the patient and his he has been somewhat more tired recently. He is able to fall sleep quite rapidly. He has limited his activity recently due to knee discomfort. He has other symptoms of both rheumatoid and osteoarthritis. At the time of my interview the patient claims to be feeling well. He states that he is anxious to ambulate and go home. He has not had any recurrence of these dizzy spells since he has been in the emergency room. He was able ambulate to the bathroom earlier without recurrent symptoms. Allergies Allergy/AdvReac Type Severity Reaction Status Date / Time NSAIDS (Non-Steroidal Allergy Severe Bleeding Verified 10/26/21 07:36 Anti-Inflamma latex Allergy Intermediate Skin Verified 10/26/21 07:36 redness aspirin AdvReac Severe Bleeding Verified 10/26/21 07:36 Home Medications Medication Instructions Recorded Confirmed Type folic acid 1 mg tablet 1 mg PO QAM 07/06/18 10/26/21 History methotrexate sodium 2.5 mg tablet 15 mg PO WK 06/28/19 10/26/21 History azelastine 137 mcg (0.1 %) nasal 1 spray INTRANASAL DAILY PRN #30 ml 04/22/21 10/26/21 Rx spray aerosol lisinopril 40 mg tablet 40 mg PO QAM 04/29/21 10/26/21 History pantoprazole 40 mg tablet,delayed 40 mg PO QDD 04/29/21 10/26/21 History release (Protonix) clonidine HCl 0.1 mg tablet 0.1 mg PO DAILY PRN #90 tab 08/31/21 10/26/21 Rx oxycodone-acetaminophen 10 mg-325 1 tab PO Q6H PRN #120 tab 10/01/21 10/26/21 Rx mg tablet budesonide-formoterol HFA 160 1 inh INHALATION DAILY PRN 10/26/21 10/26/21 History mcg-4.5 mcg/actuation aerosol inhaler (Symbicort) cholecalciferol (vitamin D3) 1,250 50,000 unit PO UD 10/26/21 10/26/21 History mcg (50,000 unit) capsule felodipine 2.5 mg tablet,extended 2.5 mg PO HS 10/26/21 10/26/21 History release 24 hr hydroxychloroquine 200 mg tablet 200 mg PO QAM 10/26/21 10/26/21 History triamterene 37.5 1 tab PO QAM 10/26/21 10/26/21 History mg-hydrochlorothiazide 25 mg tablet Patient History Medical History (Updated 10/26/21 @ 07:52 by Jhony Duarte MD) Acid reflux Acute bronchitis Acute sinusitis Anxiety disorder Asthma Recent exacerbation per PCP visit 04/28/21- given abx (refused steroids d/t upcoming surgery) > symptoms resolved per PAT visit 05/03 Atrial flutter hx Cervical radiculopathy Cervical spondylosis lumbar Effusion, right knee H/O: GI bleed Hx recurrent (several years ago) HTN (hypertension) Left knee DJD Osteoarthritis Permanent atrial fibrillation Not chronically anticoagulated d/t recurrent GI bleeding, follows with Dr. 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) Hx of cataract surgery R/L Family History Father , age 66 of an [place] Myocardial infarction Mother , age 83 of dementia Alzheimer disease Uncle Cancer Denies family history of Ovarian cancer Prostate cancer Breast cancer Colorectal cancer Social History Smoking Status: Never smoker Second Hand Exposure: No; Hx Alcohol Use: No Hx Substance Use: No Preferred Language: French Communication Ability: Effective Visual Impairment: No Limitations Hearing Ability: Normal Rug Receiving Clerk Required: No Beliefs That Will Affect Care: None marital status: Current Living Situation: Spouse current occupational status: 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 Mood and affect appeared normal. He answered all questions appropriately. HEENT: Pupils are equal and reactive to light and accommodation. Extraocular movements are intact. The sclerae are anicteric. Neuro: Cranial nerves intact Neck: Patient's neck is supple. He has palpable carotid pulses bilaterally without bruits on auscultation. There is no evidence of jugular venous distention. The thyroid is not enlarged. Lungs: Clear to auscultation bilaterally. He has good air movement without use of accessory muscles. No rales wheezes or rhonchi. Cardiac: Heart demonstrates an irregular rhythm. Normal S1 and S2. No murmurs on examination. Pulses: The patient has palpable radial pulses bilaterally that are equal in intensity Extremities: There was no evidence of hypoperfusion. There is no cyanosis or clubbing. There is no edema. Skin: I did not appreciate any rashes on examination today. Results & Data ([facility]) Vital Signs (Past 12 Hours) Vital Signs Temp Pulse Pulse Pulse Resp BP BP 10/26/21 13:33 39 L 15 112/67 10/26/21 10:10 36.8 C 60 16 114/78 10/26/21 08:13 43 L 18 122/64 10/26/21 07:35 47 L 18 132/71 10/26/21 06:11 39 L 18 114/88 Pulse Ox 10/26/21 13:33 94 10/26/21 10:10 98 10/26/21 08:13 99 10/26/21 07:35 98 10/26/21 06:11 96 Laboratory Results Abnormal Lab Results 10/26/21 10/26/21 10/26/21 04:15 04:15 04:15 WBC 9.36 RBC 4.97 Hgb 14.7 Hct 45.3 MCV 91.1 MCH 29.6 MCHC 32.5 RDW Std Deviation 52.1 H RDW Coeff of Ankit 15.6 H Plt Count 269 MPV 11.1 H Immature Gran % (Auto) 0.3 Neut % (Auto) 69.4 Lymph % (Auto) 15.3 [place] % (Auto) 12.7 Eos % (Auto) 2.0 Baso % (Auto) 0.3 Neut # (Auto) 6.49 Lymph # (Auto) 1.43 [place] # (Auto) 1.19 H Eos # (Auto) 0.19 Baso # (Auto) 0.03 Immature Gran # (Auto) 0.03 H PT 10.3 INR 1.0 Sodium 133 L Potassium 3.9 Chloride 96 L Carbon Dioxide 29 Anion Gap 8.0 BUN 15 Creatinine 1.10 Est Cr Clr Drug Dosing Not Reportable Est GFR ( Amer) 73.1 Est GFR (Non-Af Amer) 63.1 BUN/Creatinine Ratio 14.0 Glucose 102 H Calcium 9.3 Magnesium 2.2 Total Bilirubin 0.5 Direct Bilirubin 0.2 AST 24 ALT 22 Alkaline Phosphatase 95 Troponin I < 0.015 NT-Pro-B Natriuret Pep 1548 Total Protein 7.2 Albumin 3.6 Lipase 78 TSH 4.130 Urine Color Urine Appearance Urine pH Ur Specific [place] Urine Protein Urine Glucose (UA) Urine Ketones Urine Blood Urine Nitrite Urine Bilirubin Urine Urobilinogen Ur Leukocyte Esterase Lyme Disease IgG Ab Lyme Disease IgM Ab SARS-CoV-2, RNA, NAAT 10/26/21 10/26/21 10/26/21 04:15 04:40 07:15 WBC RBC Hgb Hct MCV MCH MCHC RDW Std Deviation RDW Coeff of Ankit Plt Count MPV Immature Gran % (Auto) Neut % (Auto) Lymph % (Auto) [place] % (Auto) Eos % (Auto) Baso % (Auto) Neut # (Auto) Lymph # (Auto) [place] # (Auto) Eos # (Auto) Baso # (Auto) Immature Gran # (Auto) PT INR Sodium Potassium Chloride Carbon Dioxide Anion Gap BUN Creatinine Est Cr Clr Drug Dosing Est GFR ( Amer) Est GFR (Non-Af Amer) BUN/Creatinine Ratio Glucose Calcium Magnesium Total Bilirubin Direct Bilirubin AST ALT Alkaline Phosphatase Troponin I NT-Pro-B Natriuret Pep Total Protein Albumin Lipase TSH Urine Color Yellow Urine Appearance Clear Urine pH 8.0 H Ur Specific [place] 1.007 Urine Protein Negative Urine Glucose (UA) Negative Urine Ketones Negative Urine Blood Negative Urine Nitrite Negative Urine Bilirubin Negative Urine Urobilinogen Negative Ur Leukocyte Esterase Negative Lyme Disease IgG Ab Negative Lyme Disease IgM Ab Negative SARS-CoV-2, RNA, NAAT NEGATIVE 10/26/21 10/26/21 14:24 14:24 WBC 9.64 RBC 4.32 L Hgb 13.0 L Hct 39.2 L MCV 90.7 MCH 30.1 MCHC 33.2 RDW Std Deviation 51.8 H RDW Coeff of Ankit 15.5 H Plt Count 228 MPV 10.7 H Immature Gran % (Auto) 0.1 Neut % (Auto) 73.1 Lymph % (Auto) 13.8 [place] % (Auto) 11.3 Eos % (Auto) 1.5 Baso % (Auto) 0.2 Neut # (Auto) 7.05 H Lymph # (Auto) 1.33 [place] # (Auto) 1.09 H Eos # (Auto) 0.14 Baso # (Auto) 0.02 Immature Gran # (Auto) 0.01 PT INR Sodium 133 L Potassium 4.3 Chloride 100 Carbon Dioxide 27 Anion Gap 6.0 BUN 15 Creatinine 0.97 Est Cr Clr Drug Dosing 81.9 Est GFR ( Amer) 85.1 Est GFR (Non-Af Amer) 73.4 BUN/Creatinine Ratio 15.2 Glucose 103 H Calcium 8.4 L Magnesium Total Bilirubin Direct Bilirubin AST ALT Alkaline Phosphatase Troponin I 0.018 NT-Pro-B Natriuret Pep Total Protein Albumin Lipase TSH Urine Color Urine Appearance Urine pH Ur Specific [place] Urine Protein Urine Glucose (UA) Urine Ketones Urine Blood Urine Nitrite Urine Bilirubin Urine Urobilinogen Ur Leukocyte Esterase Lyme Disease IgG Ab Lyme Disease IgM Ab SARS-CoV-2, RNA, NAAT Diagnostic Findings Chest x-ray obtained at the time of admission revealed a hiatal hernia but no other acute cardiopulmonary process. Echocardiogram obtained revealed normal LV systolic function with moderate LVH. Severe dilation of left atrium. Mild moderately dilated right atrium. Mild aortic regurgitation and moderate mitral regurgitation. EKG obtained the time admission revealed atrial fibrillation with a slow ventricular response. Narrow complex QRS PG Care Time/CCT Total # of Minutes Spent Total Time Spent with Patient: Total time spent is greater than 50% in coordination of care (as documented) at patient's floor/unit and/or counseling patient: Coding Level of Care Code INT OBSERVATION CARE 70M LVL 3 Diagnoses Near syncope R55 Bradycardia R00.1 Permanent atrial fibrillation I48.21 HTN (hypertension) I10
--- NOTE | 2021-10-26 17:49 | Electrocardiogram Report ---
Test Reason : Blood Pressure : / mmHG Vent. Rate : 053 BPM Atrial Rate : 312 BPM P-R Int : 000 ms QRS Dur : 082 ms QT Int : 492 ms P-R-T Axes : 000 032 019 degrees QTc Int : 461 ms Atrial fibrillation Otherwise normal ECG When compared with ECG of 09-SEP-2021 16:15, Current undetermined rhythm precludes rhythm comparison, needs review QT has lengthened Confirmed by Krish Macias ([id number]) on 10/26/2021 5:48:27 PM Referred By: REFERRED SELF Confirmed By:Sean Macias
--- NOTE | 2021-10-26 17:54 | Electrocardiogram Report ---
Test Reason : Blood Pressure : / mmHG Vent. Rate : 043 BPM Atrial Rate : 046 BPM P-R Int : 000 ms QRS Dur : 088 ms QT Int : 522 ms P-R-T Axes : 000 043 014 degrees QTc Int : 441 ms Atrial fibrillation with slow ventricular response Abnormal ECG Confirmed by Krish Macias ([id number]) on 10/26/2021 5:53:42 PM Referred By: REFERRED SELF Confirmed By:Sean Macias
--- NOTE | 2021-10-26 17:55 | Discharge Summary ---
Date of Service October 26, 2021 Admission HPI Per Admitting Provider River Rick is an 80yo male with history of atrial flutter, HTN and RA presenting with bradycardia and hypotension. Patient has been feeling ill over the last day. His blood pressure this morning prior to arrival was found to be low - initially 158 then decreased to 88 mmHg. He had some dizziness, somnolence and reports periods of minimal responsiveness and episodes of diaphoresis. Patient was administered Atropine by EMS prior to arrival HR 39-59 in ER Patient complains of feeling dehydrated. States that his mouth is very dry and he is very thirsty. ER Course: 2L nss Admission Exam Per Admitting Provider General: patient resting comfortably, NAD, non-toxic in appearance, AA&O to person and location with some confusion to date Skin: warm, dry, intact, no rashes or lesions HEENT: NC/AT, PERRL, EOMI, anicteric sclera, conjunctiva without injection, external ear normal to inspection and nontender, nares patent, moist mucus membranes, dentition intact, no oropharyngeal lesions, neck supple, trachea midline, no LAD, no thyromegaly, no JVD Heart: +S1/S2, regular, bradycardia, no m/r/g Lungs: equal air entry bilaterally, no rales/rhonchi/wheezes Abd: +BS, soft, NT/ND, no masses/organomegaly/ascites Ext: warm, 2+ pulses in UE/LE bilaterally, no clubbing/cyanosis or edema Neuro: nonfocal, patient AA&O x 2, speech intact, no facial droop, moving all extremities on command with equal strength 5/5 Principal Diagnosis Bradycardia, Hypotension, Dehydration Discharge Exam General: patient resting comfortably, NAD, non-toxic in appearance, AA&O x3 Skin: warm, dry , no obvious lesions ENT: trachea midline without deviation, mmm Resp: CTAB, diminished in bases, on room air CV: irregularly irregular, rate 50bpm, trace b/l LE edema Msk/Neuro: speech clear, intact, answering questions appropriately, moves all extremities, no focal deficits, no pronator drift, strength equal b/l GI: +bs throughout ,soft, non-tender, no guarding : no gallardo Discharge Data Allergies Allergy/AdvReac Type Severity Reaction Status Date / Time NSAIDS (Non-Steroidal Allergy Severe Bleeding Verified 12/28/21 07:36 Anti-Inflamma latex Allergy Intermediate Skin Verified 10/26/21 07:36 redness aspirin AdvReac Severe Bleeding Verified 10/26/21 07:36 Consultations 10/26/21 08:19 Consult Cardiology Routine Ordered Studies CXR ECHO Hospital Course (1) Bradycardia: 80yo male with history of atrial fibrillation presenting with bradycardia - HR of 39 on arrival, episodes of hypotension. Also with increased somnolence, dizziness and episodes of mild confusion and decreased responsiveness. Patient has received 2L NSS in the ER - presently with HR of 49, systolic pressure is stable. He is responsive and appropriate. Briefly discussed possibility of pacemaker placement. Patient is hesitant to proceed with such. No lactic or procal on admit. No blood cultures. UA negative for infection. CXR with poor inspiratory effort. CT head not done given lack of focal deficits on exam on admission and ER provider did not feel was indicated at that time. TSH 4.13 wnl Held antihypertensive agents on admission, ordered external pacer pads Afebrile and WBC wnl, although do note elevated neutrophils. Without complaints of fever/chills and feeling much better around noon and wanting to go home if possible. Had been running 39-50s in ER ECHO LV systolic function normal, moderate concentric LVH, LA severely dilated, RA mild-moderately dilated. Aortic valve sclerosis moderate, without significant aortic valvular stenosis, mild aortic regurgitation, moderate MR, RVSP 30-40mmHg Cardiology consulted -- feels will need pacemaker in future but if able to ambulate and without symptoms could d/c and follow up with Dr Parra as outpatient Patient symptom free and HR to 92 when ambulating, 50s at rest. BP remained stable after IVF and holding antihypertensives Temporarily holding Dyazide at discharge until seen by Dr. Parra in next week to prevent dehydration, and to have continued monitoring of BP/HR at home. To call Dr Parra's office tomorrow to discuss diuretic therapy Alerted of s/sx to return to ER [facility]. (2) Rheumatoid arthritis: Chronic -Continue Hydroxychloroquin and Methotrexate Follows [facility] --> recently had the plaquenil added. Will need continued monitoring of QTC, currently 441ms- 461ms (3) GERD (gastroesophageal reflux disease): Chronic -Continued Protonix No symptoms of increased reflux reported Of note, patient does have quite large paraesophageal hiatal hernia on previous imaging f/u pcp outpt (4) Dyslipidemia: Chronic -No medications (5) Permanent atrial fibrillation: Chronic -Presently with bradycardia, ?need for pacer -Cardiology consultation appreciated (6) HTN (hypertension): Low blood pressure on arrival, now improved after 2L NSS Holding Dyazide at d/c but continue lisinopril 40mg daily, felodipine 2.5mg (may need held in future) daily, clonidine prn (uses rarely 1-2x/month0 until seen in follow up with Dr Parra and to continue monitoring at home Total Time Total Time Spent Total Time Spent (In Minutes): 45 Discharge Plan Discharge Items Patient Disposition: Home - Self-Care Reason For Visit: BRADYCARDIA,HYPOTENSION Discharge Diagnosis: Bradycardia, Hypotension Goals: You have been hospitalized for an acute medical problem. During your stay at [facility], we have made an effort to correct the problem that brought you to the hospital while keeping you as comfortable as possible. Medications were used to bring your condition under control and your discharge instructions will include directions for any medications you should take after leaving the hospital. Please make sure you see your Primary Care Provider as part of your follow up plan. Activity: Resume your previous activity Non-emergency contact: Primary Care Provider and Senior Asset Manager Call non-emergency contact if: you have any medication questions, your symptoms worsen and your pain is unusual for you Follow-up/Referrals: Eduardo Parra MD [Physician] - (1 week) Bj Calvillo MD [Primary Care Provider] - Diet: Heart Healthy Addtl Attending Provider Instructions: You have been hospitalized for hypotension and bradycardia. You were provided IV fluids for hypotension and dehydration on admission and blood pressures have improved. You had an ultrasound done of the heart which did not reveal any significant worsening/valvular disease to cause current issue. You were evaluated by Cardiology, Dr Macias, and discussion was had regarding pacemaker placement, which you have opted out of at this time but should continue to monitor for recurrence of symptoms, and if they happen, please return to nearest ER [facility]. You should continue monitoring your heart rates at home and should have close follow up with Dr. Parra in the next week to monitor your progress. You should also have continued monitoring of your EKG while on medications that can cause QT prolongation. You should hold your triamterene-HCTZ until seen by Dr. Parra in follow up to prevent hypotension/dehydration as discussed with Dr. Cassidy, and you may only need one part of this combination diuretic to help control blood pressure but prevent dehydration. As instructed by Dr. Macias, would feel comfortable waiting at this time and ambulating, and as you did not have any recurrence of symptoms, you are felt ready for discharge. Please follow up with PCP in next 7-10 days. Please return the emergency department with any fever, chills, chest pain, shortness of breath, abdominal pain or for any other symptoms that are concerning for you. Take care! Pending Studies at Discharge: No Stand-Alone Forms: My [facility] [employer], Smoking Cessation Medications and DC Order Prescriptions: New felodipine 2.5 mg tablet extended release 24 hr 2.5 mg PO DAILY Qty: 30 RF: 0 Continued folic acid 1 mg tablet 1 mg PO QAM RF: 0 azelastine 137 mcg (0.1 %) aerosol,spray 1 spray intranasal DAILY PRN (Reason: congestion) Qty: 30 RF: 0 clonidine HCl 0.1 mg tablet 0.1 mg PO DAILY PRN (Reason: hypertension) Qty: 90 RF: 3 oxycodone-acetaminophen 10-325 mg tablet 1 tab PO Q6H PRN (Reason: pain) Qty: 120 RF: 0 methotrexate sodium 2.5 mg Tablet 15 mg PO WK RF: 0 pantoprazole [Protonix] 40 mg tablet,delayed release (DR/EC) 40 mg PO QDD RF: 0 lisinopril 40 mg tablet 40 mg PO QAM RF: 0 budesonide-formoterol [Symbicort] 160-4.5 mcg/actuation HFA aerosol inhaler 1 inh INHALATION DAILY PRN (Reason: Shortness Of Breath) RF: 0 hydroxychloroquine 200 mg tablet 200 mg PO QAM RF: 0 cholecalciferol (vitamin D3) 1,250 mcg (50,000 unit) capsule 50,000 unit PO UD RF: 0 Discontinued felodipine 2.5 mg tablet extended release 24 hr 2.5 mg PO HS RF: 0 triamterene-hydrochlorothiazid 37.5-25 mg tablet 1 tab PO QAM RF: 0 Discharge Orders: Discharge Order (Routine); Ordered 10/26/21 Ordered By: Jenniffer Orozco Admission Data Admit Date/Time: 10/26/21 07:20 Attending Provider: Senia Curtis Admit Provider: Senia Curtis Primary Care Provider: Bj Calvillo Other Providers: Bj Estes Other Interventions: Discharge Summary Assessment (RN) Last Done: 10/26/21 19:14 Supervising Physician Co-Signing Physician Notes I supervised Jenniffer Orozco PA-C on the care of this patient. I interviewed and examined the patient independently of her. The plan is as written in her note except for any following changes/exceptions: None Seen after cardiology. Feeling well. Would like to monitor further before considering a pacemaker. Discussed BP meds, and he will hold his diuretic until he touches base with Dr. Parra. Coding Level of Care Code OBSERV/HOSP SAME DATE LVL 3 Diagnoses Bradycardia R00.1 Rheumatoid arthritis M06.9 GERD (gastroesophageal reflux disease) K21.9 Dyslipidemia E78.5 Permanent atrial fibrillation I48.21 HTN (hypertension) I10
[2021-10-26] MEDS ORDERED: PANTOprazole 40 MG TAB PO SCH (21:00)
[2021-11-01] MEDS ORDERED: metHOTREXate sodium 2.5 MG TAB PO SCH (09:00)
== END 2021-10-26 19:00 | disposition home or self-care (01) | DRG 310 ==
LOC: ED 03:55 → INTOOBSV 07:20 → OBSVTOIN 07:20 → EDINP 07:20

== ENCOUNTER 2022-02-22 08:39 | Observation (INO) ==
--- NOTE | 2022-02-18 14:42 | Anesthesiology Consultation ---
Date of Service February 18, 2022 Assessment & Plan (1) Encounter for pre-operative examination: - COVID screening: Per assessment on 02/18: No known COVID-19 positive contacts or current COVID-19 related symptoms. Travel screen negative. Patient vaccinate d. Preop Covid test done 02/18 ([facility]) is pending. 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 No issues noted per post-op anesthesia progress note. - Hematology office visit (01/08/21): "Multiple episodes of gastrointestinal bleeding in the setting of antiplatelet agent. First time was on Celebrex, second was aspirin, but he thinks there was a third event. He never had to be admitted to the hospital nor did he have blood transfusion, and the anemia responded with oral iron supplementation. Because of such minor exposures to antiplatelet therapy has resulted in GI bleeding, there has been reluctance on his part and the physicians' part to put him on any anticoagulation or antiplat elet therapy for the atrial fibrillation. He now wants to have total knee arthroplasty, and I told him that he is at high risk of developing blood clots if he does not go on any blood thinner.. I explained to him an alternative may be to give him a trial of Lovenox for a couple of days to see if that caused any bleeding or did not and then perhaps we could use Lovenox as the perioperative prophylaxis to prevent blood clots." - Hematology note (02/05/22): "He had no evidence of von Willebrand disease. His platelet function test that you did was normal. Therefore, I think it is reasonable that we proceed with plan of Lovenox as a test dose for several days. He does not have a bleed then we can utilize Lovenox as a postoperative thromboprophylaxis for his planned total knee replacement." - Cardiology office visit (02/10/22): "Patient with permanent atrial fibrillation who does not require any negative chronotropic for rate control and who is not anticoagulated due to recurrent GI bleeding. He is doing well overall, recent echocardiogram showed normal systolic function and noncritical valvular disease. Volume status and hemodynamics have been favorable on his current regimen. Given prescription for lactulose to start at 3 times weekly for his constipation, he likely will follow up with GI if this is ineffective in resolving his symptoms. Aside from adding PRN lactulose, no change in his medical regimen. Cardiology follow-up in 6 months." - PCP addendum (02/21/22): "medical problems stable for surgery.. planned lovenox.. see prior hematology consult notes [facility] 2020" - Check coags AM DOS Chart Review Chart Review: Acceptable Risk for Surgery and Patient NOT seen in Pre Admission Testing History Surgery Operation Date: 02/22/22 12:30 Proposed Procedures p Left Total Knee Replacement - Leonardo Curtis MD Height/Weight Height: 6 ft 2 in Weight: 102.965 kg Allergies Allergy/AdvReac Type Severity Reaction Status Date / Time latex Allergy Intermediate Skin Verified 02/18/22 14:36 redness (with gloves) aspirin AdvReac Severe Bleeding Verified 02/18/22 13:54 NSAIDS (Non-Steroidal AdvReac Severe Bleeding Verified 02/18/22 14:36 Anti-Inflamma Medications Home Medications Medication Instructions Recorded Confirmed Last Taken folic acid 1 mg tablet 1 mg PO QAM 07/06/18 02/18/22 10/25/21 methotrexate sodium 2.5 mg tablet 15 mg PO WK 06/28/19 02/18/22 10/25/21 18:00 lisinopril 40 mg tablet 40 mg PO QAM 04/29/21 02/18/22 10/25/21 clonidine HCl 0.1 mg tablet 0.1 mg PO DAILY PRN #90 tab 08/31/21 02/18/22 Unknown budesonide-formoterol HFA 160 1 inh INHALATION DAILY PRN 10/26/21 02/18/22 10/12/21 mcg-4.5 mcg/actuation aerosol inhaler (Symbicort) hydroxychloroquine 200 mg tablet 200 mg PO QAM 10/26/21 02/18/22 10/25/21 felodipine 5 mg tablet,extended 2.5 mg PO QPM tab 02/10/22 02/18/22 Unknown release 24 hr lactulose 20 gram oral packet 20 g PO DAILY PRN #30 ea 02/10/22 02/18/22 Unknown oxycodone-acetaminophen 10 mg-325 1 tab PO Q6H PRN #120 tab 02/18/22 02/18/22 Unknown mg tablet pantoprazole 40 mg tablet,delayed 40 mg PO QPM 02/18/22 02/18/22 Unknown release (Protonix) acetaminophen 500 mg capsule 1,000 mg PO TID #180 cap 02/20/22 Unknown enoxaparin 30 mg/0.3 mL 30 mg SUBCUT Q12H 10 Days #6 ml 02/20/22 Unknown subcutaneous syringe (Lovenox) ondansetron HCl 4 mg tablet 4 mg PO Q6 PRN #25 tab 02/20/22 Unknown oxycodone 5 mg tablet 5 mg PO Q6 PRN #30 tab 02/20/22 Unknown sennosides 8.6 mg-docusate sodium 1 tab-cap PO DAILY #14 tab 02/20/22 Unknown 50 mg tablet (Senokot-S) tamsulosin 0.4 mg capsule (Flomax) 0.4 mg PO DAILY #7 cap 02/20/22 Unknown Past Medical History Medical History Acid reflux Anxiety disorder Asthma Atrial flutter Cervical radiculopathy Cervical spondylosis H/O: GI bleed HTN (hypertension) Left knee DJD Osteoarthritis Permanent atrial fibrillation Rheumatoid arthritis Right knee DJD Past Family History Family History Father , age 66 of an [place] Myocardial infarction Mother , age 83 of dementia Alzheimer disease Uncle Cancer Denies family history of Ovarian cancer Prostate cancer Breast cancer Colorectal cancer Past Surgical History Surgical History H/O knee surgery History of lumbar surgery History of total right knee replacement Hx of cataract surgery Social History Smoking Status: Never smoker Do You Dip or Chew Tobacco: No Hx Alcohol Use: No Alcohol type: wine Hx Substance Use: No substance use type: does not use Lab Results Anesthesia Preop Results Results Anesthesia Widget: WBC 8.83 K/uL (4.8-10.8) 02/10/22 Hgb 15.7 g/dL (14.0-18.0) 02/10/22 Hct 47.2 % (42-52) 02/10/22 Plt 294 K/uL (130-400) 02/10/22 Na 136 mmol/L (136-145) 02/10/22 K 4.2 mmol/L (3.5-5.1) 02/10/22 Cl 99 mmol/L (98-107) 02/10/22 CO2 29 mmol/L (21-32) 02/10/22 BUN 13 mg/dl (6-23) 02/10/22 Creat 1.03 mg/dl (0.6-1.4) 02/10/22 Glucose Level 124 mg/dl (70-99(Fasting)) H 02/10/22 PT 10.9 Seconds (9.0-12.0) 02/10/22 INR 1.0 (0.9-1.1) 02/10/22 Blood Type O Positive 02/10/22 Antibody Screen NEGATIVE 02/10/22 Testing Electrocardiogram Date: 10/26/21 A. fib with slow ventricular response at 43bpm. Chest X-Ray Date: 10/26/21 FINDINGS: Single frontal view of the chest demonstrates the heart to again be at the upper limits of normal to mildly enlarged. Compared to the previous study, there is a decreased inspiratory effort with elevation of the hemidiaphragms and crowding of the bronchovascular markings at the lung bases and centrally. The lungs are clear of alveolar opacities. There is again evidence for a hiatal hernia in the retrocardiac space. There is no evidence for pleural effusion. There is no evidence for vascular congestion. There is no acute osseous pathology. IMPRESSION: Compared to the previous examination, there is a decreased inspiratory effort with otherwise no acute chest disease. Echocardiogram Date: 10/26/21 EF 60-65%. No regional motion abnormality. Moderate concentric LVH. Severe LAD. Mild to moderate RAD. Moderate AV sclerosis. Mild AR. Moderate MR. RVSP 30-40 mmHg. Mild TR. RVSP 30-40 mmHg.
--- NOTE | 2022-02-18 19:29 | History and Physical Report ---
DATE OF ADMISSION: 02/22/2022 CHIEF COMPLAINT: Persistent progressive left knee pain and discomfort. HISTORY OF PRESENT ILLNESS: The patient is an 81-year-old gentleman who now presents for surgical tr eatment of his left knee. He has got a long history of bilateral knee pain and discomfort. He descr ibes it has gotten worse over time. He underwent a right knee replacement back in April of last year and has done pretty well from this. He is pretty happy with that. He continues to be limited by lef t knee pain and discomfort. It is global pain. The more he is up and on it, the more it hurts. He has been through extensive conservative treatment including aspirations and injections, which have be come less successful. He really cannot take a lot of products due to a history of GI bleed in the [facility]. He would like to proceed with knee replacement. PAST MEDICAL HISTORY: 1. Asthma. 2. Irregular heartbeat. 3. Hypertension. 4. Gastroesophageal reflux disease. 5. GI bleed. 6. Hiatal hernia. 7. Sciatica. 8. Rheumatoid arthritis. PAST SURGICAL HISTORY: Includes, 1. Laminectomy. 2. Left knee surgery x2. 3. Right knee replacement on 05/14/2020. ALLERGIES: None. HE DOES NOT DO WELL WITH NSAIDS DUE TO GI IRRITATION AND GI BLEEDS. CURRENT MEDICATIONS: Include, 1. Albuterol. 2. Azelastine nasal spray. 3. Clonidine. 4. Doxycycline. 5. Felodipine. 6. Folic acid. 7. Lisinopril. 8. Methotrexate. 9. Oxycodone. 10. Protonix. 11. Triamterene/hydrochlorothiazide. SOCIAL HISTORY: Significant for an 81-year-old male. He is from [place]. . FAMILY HISTORY: Noncontributory. REVIEW OF SYSTEMS: Significant for history of GI bleed in the past. Cannot take aspirin or NSAIDs. His arc welding machine operator has recommended Lovenox and he used that last time. No history of DVT or PE. PHYSICAL EXAMINATION: GENERAL: Shows a pleasant, elderly male. Looks to be in pretty good health. HEENT: Benign. NECK: Supple. No lymphadenopathy. LUNGS: Clear to auscultation. HEART: Regular rate and rhythm. ABDOMEN: Soft, nontender, nondistended. EXTREMITIES: Grossly neurovascularly intact except as follows: Examination of the left knee reveals the patient walks independently. He has got valgus alignment to his knee. This is increased with w eightbearing. He is tender diffusely around his knee. Moderate-sized knee effusion. Range of motio n 5-120. No instability. Examination of the right knee reveals a well-healed incision. Minimal swelling. Range of motion is 0-120. No pain with hip motion. X-RAYS: X-rays of the left knee are reviewed. It shows advanced DJD. He has got complete loss of h is lateral joint space. He has got subchondral sclerosis. He has got osteophytes primarily laterall y. ASSESSMENT: An 81-year-old male, 9 months out from a right knee replacement with advanced left knee degenerative joint disease. Pretty happy with his right knee, would like to have his left knee repla renea. He does not do good with aspirin and we will use Lovenox for deep venous thrombosis prophylaxis . Last time he would like to do the same thing based on his arc welding machine operator's recommendations. PLAN: We will take him to the operating room and do left total knee replacement. Risks and benefits of this procedure were explained to the patient and include but not limited to DVT, PE, , infec tion, neurological injury, vascular injury, bleeding problem, pain, limited range of motion, stiffnes s, failure to relieve his symptoms, incomplete relief of symptoms, etc. The patient understands and desires to proceed. Informed consent was obtained. He went to [facility] last time and had bad experience. He wants to go home with home health. We will plan on using [facility]. He will use Lovenox for DVT prophylaxis 30 mg twice a day for 2 weeks. Job ID: [id number]
[~2022-02-22 08:39] MED LIST changes: +BUPIVACAINE 0.5 % 5 MG/1 ML MPF 30ML VIAL ONE; -BUPIVACAINE 0.5 % 5 MG/1 ML PF 10ML VIAL ONE; -ROPIVACAINE 0.5% 5 MG/ML 30 ML VIAL ONE
[2022-02-22] MEDS ORDERED: ROPIVACAINE 0.5% 5 MG/ML 30 ML VIAL ONE (09:06)
[2022-02-22] MEDS ORDERED: fentaNYL citrate 100 MCG/2 ML VIAL ONE (09:17)
[2022-02-22] MEDS ORDERED: MIDAZOLAM HCL 1 MG/ML 2ML VIAL ONE ×2 (09:17→10:00)
[2022-02-22 09:35] LABS: INR 1.1 (0.9-1.1); Partial Thromboplastin Time 28.8 Seconds (21.0-31.0); Prothrombin Time 11.2 Seconds (9.0-12.0)
[2022-02-22] MEDS ORDERED: ATROPINE SULFATE 0.1 MG/ML 10ML SYR IV PRN (10:13)
[2022-02-22] MEDS ORDERED: fentaNYL citrate 100 MCG/2 ML VIAL IV PRN (10:13)
[2022-02-22] MEDS ORDERED: ONDANSETRON INJ 2 MG/ML 2 ML VIAL IV PRN ×2 (10:13→14:53)
[2022-02-22] MEDS ORDERED: ePHEDrine sulfate 50 MG/ML AMP IV PRN (10:13)
[2022-02-22] MEDS ORDERED: HYDROmorphone INJ 2 MG/ML SYR/VIAL IV PRN (10:13)
[2022-02-22] MEDS ORDERED: PROMETHAZINE HCL 12.5 MG in SODIUM CHLORIDE 0.9% 50 ML IV PRN (10:13)
--- NOTE | 2022-02-22 10:50 | History & Physical Bridge Note ---
Date of Service February 22, 2022 History & Physical Bridge Note I have examined the patient, reviewed the History & Physical and in the interval since the performance of the History & Physical I have noted the following changes of clinical significance: no changes noted
[2022-02-22] MEDS ORDERED: SODIUM CHLORIDE 0.9% PF 50 ML VIAL ONE (10:52)
[2022-02-22] MEDS ORDERED: BUPIVACAINE 0.25% 30 ML VIAL ONE (10:52)
[2022-02-22] MEDS ORDERED: EPINEPHrine INJ 1 MG/ML AMP ONE (10:52)
[2022-02-22] MEDS ORDERED: BUPIVACAINE LIPOSOME 1.3% 266 MG/20 ML VIAL ONE (10:52)
[2022-02-22] MEDS ORDERED: PROPOFOL IV EMULSION 10 MG/ML 20 ML VIAL IV ONE ×2 (11:25→12:09)
[2022-02-22] MEDS ORDERED: ONDANSETRON INJ 2 MG/ML 2 ML VIAL ONE (11:41)
[2022-02-22] MEDS ORDERED: VANCOMYCIN HCL 1000MG/20ML VIAL ONE (11:43)
--- NOTE | 2022-02-22 13:07 | Operative Report ---
PG Post Operative Report Pre & Post Diagnosis Operation Date: 02/22/22 10:40 Pre-Op Diagnosis: Left Knee Advanced Degenerative Joint Disease Post-Op Diagnosis: Left Knee Advanced Degenerative Joint Disease I identified the patient and participated in the time-out.: Yes Procedure Operation Date: 02/22/22 10:40 Actual Procedures p Left Total Knee Arthroplasty(Left) - Leonardo Curtis MD Surgeon Leonardo Curtis MD Network Solutions Architect Jhonatan Guy PA-C Estimated Blood Loss 50 Findings Consistent with Post-Op Diagnosis Operative findings were advanced left knee tricompartment DJD. He had extensive grade 4 [id number] disease in all 3 compartments most severe laterally. He had a fixed valgus deformity to his knee. Slight flexion contracture about 10 to 15 degrees. Moderate-sized joint effusion. Fluids 1300 cc Specimens Left knee sent for pathology Drains None Anesthesia Type Spinal MAC Complications none Disposition Accompanied Patient To Recovery: No Indications Patient is an 81-year-old gentleman said a long history of bilateral knee pain discomfort. He had been to extensive conservative treatment which became less successful over time. He has right knee replaced about 10 months ago and is done well from this. Continued be limited by left knee pain. He elected proceed with surgical treatment. Description of Procedure Operative implants consist of: 1. Biomet Vanguard size 72.5 left posterior stabilized femoral component. 2. Biomet size 79 tibial tray. 3. 10 mm posterior stabilized polyethylene insert. 4. 34 x 8 and half all polypatella. The patient was taken to the operating room, identified, placed on the operating table supine position protectors were properly padded. IV antibiotics arrived by anesthesia team. A spinal anesthetic and abductor canal block had provided in the holding area. A [place] catheter was placed in sterile fashion. Left thigh turn was then placed in the left lower extremity was then prepped and draped in usual sterile fashion. The left leg was elevated exsanguinated with use of an Esmarch in terms playset 3 mmHg. An anterior approach left knee was then performed through longitudinal incision centered over the patella. Sharp dissection was carried through subcutaneous tissue down to the extensor mechanism. A medial parapatellar arthrotomy incision was made. Some subperiosteal dissection was carried out medially. The fat pad was resected from each patella tendon. Lateral patellofemoral ligament was released. Patella subluxated laterally and the knee was flexed. The osteophyte taken off distal femur. ACL and PCL were then released in the distal femur and the tibia subluxated anteriorly. The external tibial alignment jig was then placed the interface the tibia and adjusted 12 mm medially. Proximal tibial cut was made remove about 3 to 4 mm of bone from the medial side. The tibia was then sized to a size 79. Attention drawn the femur. The distal femur then with a sharp drill. Intramedullary canal was suction. A left 5 degree valgus cutting guide was placed. Distal femoral cutting block was pinned in place. Distal femoral cut was made to take an additional 3 mm bone off distal femur. I then recut this to take an additional 2 mm as he had a flexion contracture. The femur was then sized to a size 72.5. The AP cutting block was pinned parallel to the epicondylar axis which was 4 degrees of external rotation. The anterior cut, anterior chamfer, posterior cut, posterior chamfer cuts were made. The box cutting guide was placed in just slight lateral box cut was made. The knee was flexed. The remnants of the medial and lateral menisci were excised. The osteophyte taken off the posterior aspect of femur. A trial femoral component was placed. Tibial tray was pinned in maximum external rotation and the drill and stem punch used to create defect in proximal tibia for the tibial tray. Knee was then trialed and the 10 mm insert fit most appropriately. Attention drawn the patella. The patella was cleaned of all soft tissues. Patella thickness measured 26 mm in thickness was cut down to 15. Was sized to a size 34 patella. The lug holes were drilled for the 34 patella. Lateral osteophytes removed. Patella button was placed. Knee was taken through range of motion patella tracked nicely with no thumbs test. Attention drawn to placing permanent components. Nupathe all trial components were removed. Bone plug was placed in the distal femur limit blood loss put a double batch [place] G cement was mixed. I did add an additional gram of vancomycin due to his immunocompromise status with rheumatoid arthritis and the current methotrexate intake. A Biomet Vanguard size 72.5 left posterior stabilized femoral component, size 79 tibial tray, 10 mm posterior stabilized polyethylene insert, and a 34 x 8 and half all polyethylene patella button cemented in place. The knee was brought out into full extension until cement hardened. Final cement check was then performed. The pericapsular tissues were injected with total 100 cc of combination of 20 of Exparel, 30 cc normal saline, 50 cc of quarter percent Marcaine with epinephrine. Patient did receive 1 g tranexamic acid. The tourniquet was let down for final turn time of 57 minutes. Hemostasis assured use electrocautery. Extensor mechanism closed with combination 1 PDS suture #1 Vicryl suture in kebqgj-vi-yrliu fashion. Extensor mechanism checked and found to be intact with subcutaneous tissue then closed with 2 Dexon suture in a buried interrupted fashion skin was closed skin aditya. Legs then cleaned and dried a sterile dressing was Xeroform, 4 fours, sterile cast padding, Joseph bandage were applied. Patient then transferred to the recovery room in stable condition. Patient tolerated procedure well and there were no complications. Jhonatan Guy, my physician admissions assistant, was present for the entire procedure. His assistance was essential and required for appropriate patient positioning, prepping and draping, surgical exposure, performing the technical details of the operation, placement the implants, closure of the wound, and placement of the sterile bandage. I attest to the content of the Intraoperative Record and any orders documented therein. Any exceptions are noted below.
--- NOTE | 2022-02-22 13:22 | XRay Report ---
TWO VIEWS LEFT KNEE CLINICAL HISTORY: Postoperative examination. FINDINGS: AP and crosstable lateral portable views of the left knee are obtained. A left knee arthrop lasty is in near anatomic alignment. There has been undersurface remodeling of the patella. No acute fracture is seen. There are expected postoperative changes around the knee including skin clips, soft tissue edema, and subcutaneous gas. IMPRESSION: Expected postoperative changes status post left knee arthroplasty. No acute fracture is s een. ACT 112: Negative or not required by law. Electronically signed by: Dequan Sanchez M.D. 02/22/2022 1:20 PM
--- NOTE | 2022-02-22 14:16 | Anesthesiology Progress Note ---
Date of Service February 22, 2022 Anesthesia Post Procedure Vital Signs Vital Signs: Temp Pulse Resp BP Pulse Ox 02/22/22 13:55 63 16 162/88 H 97 02/22/22 13:45 53 L 15 160/90 H 98 02/22/22 13:35 63 21 163/77 H 98 02/22/22 13:25 67 18 146/74 H 100 02/22/22 13:15 72 18 141/73 H 100 02/22/22 13:05 59 L 16 100/47 L 95 02/22/22 12:59 36.8 C 66 16 97/50 L 96 02/22/22 09:50 167/106 H 02/22/22 09:10 36.7 C 56 L 18 199/87 H 98 Pain Intensity Left Knee: Pain Intensity: 2 Neck: Pain Intensity: 2 Transfer of Care Handoff Completed per policy Notes Mental Status: alert / awake / arousable and participated in evaluation Patient Amnestic to Procedure: Yes Nausea / Vomiting: adequately controlled Pain: adequately controlled Airway Patency, RR, SpO2: stable & adequate BP & HR: stable & adequate Hydration State: stable & adequate Neuraxial Anesthesia: was administered and sensory block is resolving Anesthetic Complications: no major complications apparent
[2022-02-22] MEDS ORDERED: NALOXONE HCL 0.4 MG/1 ML VIAL/CARP IV PRN (14:53)
[2022-02-22] MEDS ORDERED: bisacodyL 10 MG SUPP PR PRN (14:53)
[2022-02-22] MEDS ORDERED: METOCLOPRAMIDE HCL INJ 5 MG/ML 2 ML VIAL IV PRN (14:53)
[2022-02-22] MEDS ORDERED: HYDROmorphone INJ 0.5 MG/0.5 ML SYR IV PRN (14:53)
[2022-02-22] MEDS ORDERED: cloNIDine HCL 0.1 MG TAB PO PRN (14:53)
[2022-02-22] MEDS ORDERED: MAGNESIUM HYDROXIDE SUSP 30 ML UDC PO PRN (14:53)
[2022-02-22] MEDS ORDERED: oxyCODONE HCL IR 5 MG TAB (IMMEDIATE RELEASE) PO PRN (14:53)
[2022-02-22] MEDS ORDERED: ALUMINUM/MAGNESIUM SUSP 30 ML UDC PO PRN (14:53)
[2022-02-22] MEDS ORDERED: LACTULOSE SYRUP 20 GM/30 ML UDC PO PRN (15:17)
[2022-02-22] MEDS ORDERED: FLUTICASONE/VILANTEROL 100/25MCG 14 PUFFS/INHALER INH PRN (15:25)
[2022-02-22] MEDS: SODIUM CHLORIDE 0.9% 1000ML 1,000 ML IV SCH ×2 (15:40→21:25)
[2022-02-22] MEDS: ACETAMINOPHEN 500 MG TAB PO SCH (17:30)
[2022-02-22] MEDS: ASCORBIC ACID 500 MG TAB PO SCH (17:31)
[2022-02-22] MEDS ORDERED: TRANEXAMIC ACID / 0.7% NACL 1,000 MG/100 ML BAG IV SCH (19:00)
[2022-02-22] MEDS ORDERED: oxyCODONE/ACETAMINOPHEN 10-325 TAB ONE (19:56)
[2022-02-22] MEDS: FELODIPINE 2.5 MG TABCR PO SCH (21:27)
[2022-02-22] MEDS: DOCUSATE SODIUM 100 MG CAP PO SCH (21:27)
[2022-02-22] MEDS: PANTOprazole 40 MG TAB PO SCH (21:28)
[2022-02-22] MEDS: SENNA 8.6 MG TAB PO SCH (21:30)
[2022-02-22] MEDS: ceFAZolin 2000MG 2,000 MG/15 ML SYR IV SCH (21:34)
[2022-02-22] MEDS: TAPENTADOL HCL ER 50 MG TABCR PO SCH (22:53)
[2022-02-23] MEDS: oxyCODONE/ACETAMINOPHEN 10-325 TAB PO PRN ×4 (02:02→20:33)
[2022-02-23] MEDS: SODIUM CHLORIDE 0.9% 1000ML 1,000 ML IV SCH (04:10)
[2022-02-23] MEDS: ACETAMINOPHEN 500 MG TAB PO SCH ×3 (05:01→23:32)
[2022-02-23] MEDS: ceFAZolin 2000MG 2,000 MG/15 ML SYR IV SCH (05:45)
[2022-02-23 07:25] LABS: BUN Creatinine Ratio 13.4 (10-20); Calcium 8.3 mg/dl (8.5-10.1); Creatinine Clr Calc Pharmacy 91.1 ml/min; Est GFR (African American) 96.1 ml/min; Est GFR (Non-African American) 82.9 ml/min
[2022-02-23] MEDS: ASCORBIC ACID 500 MG TAB PO SCH ×2 (07:43→18:18)
[2022-02-23] MEDS: HYDROXYCHLOROQUINE SULFATE 200 MG TAB PO SCH (07:44)
[2022-02-23] MEDS: lisinopril 40 MG TAB PO SCH (07:44)
[2022-02-23] MEDS: DOCUSATE SODIUM/SENNA 50/8.6MG TAB PO SCH (07:44)
[2022-02-23] MEDS: TAMSULOSIN HCL 0.4 MG CAP PO SCH (07:44)
[2022-02-23] MEDS: DOCUSATE SODIUM 100 MG CAP PO SCH ×2 (07:44→20:37)
[2022-02-23] MEDS: FOLIC ACID 1 MG TAB PO SCH (07:44)
[2022-02-23] MEDS: MULTIVITAMIN TAB PO SCH (07:44)
[2022-02-23] MEDS ORDERED: dexAMETHasone 10 MG in SYRINGE 0 ML IV SCH (08:00)
[2022-02-23 08:21] LABS: Hematocrit (blood only) 39.7 % (42-52); Hemoglobin 13.2 g/dL (14.0-18.0); Mean Corpuscular Hemoglobin 30.2 pg (25-34); Mean Corpuscular Hgb Conc 33.2 g/dL (32-36); Mean Corpuscular Volume 90.8 fL (80-100); Mean Platelet Volume 11.2 fL (7.4-10.4); Platelet Count 225 K/uL (130-400); RDW Coefficient of Variation 14.4 % (11.5-14.5); RDW Standard Deviation 47.6 fL (36.4-46.3); Red Blood Count 4.37 M/uL (4.7-6.1); White Blood Count 11.16 K/uL (4.8-10.8)
[2022-02-23] MEDS: TAPENTADOL HCL ER 50 MG TABCR PO SCH ×2 (09:42→21:33)
[2022-02-23] MEDS: ENOXAPARIN INJ 30 MG/0.3 ML SYR SQ SCH (13:46)
--- NOTE | 2022-02-23 19:45 | Progress Notes ---
DATE OF SERVICE: 02/23/2022. SUBJECTIVE: An 81-year-old gentleman now postoperative day 1 from left knee replacement. He is doin g pretty well. This knee is hurting a little bit more than what he remembers of his right knee hurti ng up after the knee replacement surgery. No chest pain or shortness of breath. He is concerned hakan t his blood pressure has been a bit high, but he is asymptomatic. No headaches. OBJECTIVE: VITAL SIGNS: Temperature 36.7. Vital signs are stable. PHYSICAL EXAMINATION: GENERAL: Shows a pleasant middle-aged male. He is lying in his hospital bed and looks completely co mfortable. LUNGS: Clear to auscultation. HEART: Has a regular rate and rhythm. ABDOMEN: Soft, nontender, nondistended. EXTREMITIES: Grossly neurovascularly intact except as follows: Examination of the left leg reveals the dressing to be clean, dry and intact. He can dorsiflex and plantarflex his foot appropriately. NEUROLOGIC: He is neurologically intact. LABORATORY DATA: Hemoglobin 13.2. Hematocrit 39.7. Electrolytes are stable. ASSESSMENT: An 81-year-old gentleman with chronic atrial fibrillation, now postoperative day 1 from a left knee replacement, doing pretty well. Having a moderate amount of pain, which is not anything out of the ordinary. PLAN: 1. DVT prophylaxis including thigh-high TEDs, SCDs, and Lovenox for 2 weeks. 2. PT/OT. Weight bear as tolerated. Left total knee protocol. 3. Pain control, doing okay with current pain regimen. 4. Disposition: Plan is to discharge him to home with some home health. I will see how therapy goe s tomorrow. Job ID: [id number]
[2022-02-23] MEDS: PANTOprazole 40 MG TAB PO SCH (20:35)
[2022-02-23] MEDS: SENNA 8.6 MG TAB PO SCH (20:36)
[2022-02-23] MEDS: FELODIPINE 2.5 MG TABCR PO SCH (20:37)
[2022-02-24] MEDS: ENOXAPARIN INJ 30 MG/0.3 ML SYR SQ SCH ×3 (02:45→21:05)
[2022-02-24] MEDS: oxyCODONE/ACETAMINOPHEN 10-325 TAB PO PRN ×3 (02:58→19:26)
[2022-02-24] MEDS: ACETAMINOPHEN 500 MG TAB PO SCH ×3 (06:00→21:09)
[2022-02-24] MEDS: DOCUSATE SODIUM 100 MG CAP PO SCH ×2 (08:18→21:06)
[2022-02-24] MEDS: ASCORBIC ACID 500 MG TAB PO SCH ×2 (08:18→16:47)
[2022-02-24] MEDS: HYDROXYCHLOROQUINE SULFATE 200 MG TAB PO SCH (08:18)
[2022-02-24] MEDS: TAMSULOSIN HCL 0.4 MG CAP PO SCH (08:18)
[2022-02-24] MEDS: lisinopril 40 MG TAB PO SCH (08:19)
[2022-02-24] MEDS: FOLIC ACID 1 MG TAB PO SCH (08:19)
[2022-02-24] MEDS: DOCUSATE SODIUM/SENNA 50/8.6MG TAB PO SCH (08:19)
[2022-02-24] MEDS: MULTIVITAMIN TAB PO SCH (08:19)
[2022-02-24] MEDS: TAPENTADOL HCL ER 50 MG TABCR PO SCH ×3 (08:23→21:18)
--- NOTE | 2022-02-24 15:23 | Orthopedic Progress Note ---
Date of Service February 24, 2022 Assessment & Plan (1) Status post total left knee replacement: He was seen and examined by Dr. Curtis. He has not done well with PT yet and hasn't walked much he said. We will keep him overnight tonight and plan for PT again tomorrow, discharge tomorrow to rehab or home with home health. Continue dvt prophylaxis. Subjective . 81 year old patient POD #2 from Left tka. He has more pain with this knee than he recalls from his other tka. He says he hasn't really been walking much yet and PT recommended staying another night. Review of Systems All systems reviewed & are unremarkable except as noted in HPI & below. Physical Exam .alert and oriented. No distress. Left leg: NVI. Able to plantar flex/dorsiflex appopriately. Results & Data Results & Data Laboratory Results . Diagnostic Findings . PG Care Time/CCT Total # of Minutes Spent Total Time Spent with Patient: Total time spent is greater than 50% in coordination of care (as documented) at patient's floor/unit and/or counseling patient: Coding Level of Care Code 25040 Post Operative Follow-Up Diagnoses Status post total left knee replacement Z96.652
[2022-02-24] MEDS: PANTOprazole 40 MG TAB PO SCH (21:06)
[2022-02-24] MEDS: FELODIPINE 2.5 MG TABCR PO SCH (21:06)
[2022-02-24] MEDS: SENNA 8.6 MG TAB PO SCH (21:07)
[2022-02-25] MEDS: ACETAMINOPHEN 500 MG TAB PO SCH ×3 (06:30→21:27)
[2022-02-25] MEDS: ASCORBIC ACID 500 MG TAB PO SCH ×2 (08:06→16:18)
[2022-02-25] MEDS: DOCUSATE SODIUM/SENNA 50/8.6MG TAB PO SCH (08:07)
[2022-02-25] MEDS: DOCUSATE SODIUM 100 MG CAP PO SCH ×2 (08:08→20:16)
[2022-02-25] MEDS: ENOXAPARIN INJ 30 MG/0.3 ML SYR SQ SCH ×3 (08:08→23:10)
[2022-02-25] MEDS: HYDROXYCHLOROQUINE SULFATE 200 MG TAB PO SCH (08:09)
[2022-02-25] MEDS: lisinopril 40 MG TAB PO SCH (08:09)
[2022-02-25] MEDS: FOLIC ACID 1 MG TAB PO SCH (08:09)
[2022-02-25] MEDS: MULTIVITAMIN TAB PO SCH (08:09)
[2022-02-25] MEDS: TAPENTADOL HCL ER 50 MG TABCR PO SCH ×2 (08:10→20:16)
[2022-02-25] MEDS: TAMSULOSIN HCL 0.4 MG CAP PO SCH (08:10)
--- NOTE | 2022-02-25 08:26 | Progress Notes ---
DATE OF SERVICE: 02/25/2022. SUBJECTIVE: An 81-year-old gentleman now postop day 3 from a left knee replacement. Function has be en slow to come around. He has not done real well in therapy. Looks a lot more comfortable pain wis e today. No real new complaints. He is still hoping to go home. OBJECTIVE: VITAL SIGNS: Temperature is 36.9. Vital signs are stable. GENERAL: Physical examination shows a pleasant, elderly male. He is sitting up in bed, looks quite comfortable. EXTREMITIES: Examination of the left leg reveals the dressing to be clean, dry and intact. He can d orsiflex and plantarflex his foot appropriately. He is neurologically intact. ASSESSMENT: An 81-year-old gentleman postop day 3 from a left knee replacement, doing okay. Functio n and mobility has just been limited. Pain seems to be improving. PLAN: 1. DVT prophylaxis includes thigh-high TEDs, SCDs, and he is on Lovenox for 2 weeks postop. 2. PT, OT, weightbear as tolerated. Left total knee protocol. 3. Pain control, doing okay with current pain regimen. 4. Disposition: He is still hoping to go home. We will see how he does in therapy today. If he do es not get better, he is going to need to go to some type of rehab or assisted facility. Job ID: [id number]
[2022-02-25] MEDS: oxyCODONE/ACETAMINOPHEN 10-325 TAB PO PRN ×2 (13:54→20:11)
[2022-02-25] MEDS: SENNA 8.6 MG TAB PO SCH (20:13)
[2022-02-25] MEDS: PANTOprazole 40 MG TAB PO SCH (20:13)
[2022-02-25] MEDS: FELODIPINE 2.5 MG TABCR PO SCH (20:18)
[2022-02-26] MEDS: ACETAMINOPHEN 500 MG TAB PO SCH ×2 (06:01→13:43)
--- NOTE | 2022-02-26 08:53 | Progress Notes ---
DATE OF SERVICE: 02/26/2022. SUBJECTIVE: An 81-year-old gentleman, now 4 days out from a left knee replacement. He is feeling mu ch better today. Had a bowel movement. He says he has been getting up and walking around with a wal ker by himself. No chest pain or shortness of breath. Not feeling dizzy or lightheaded. OBJECTIVE: VITAL SIGNS: Temperature 36.6. Vital signs are stable. GENERAL: Shows a pleasant, elderly male. Lying in bed, looks comfortable. EXTREMITIES: Examination of the left leg reveals the leg to be well aligned. He can dorsiflex and p lantarflex his foot appropriately. He is neurologically intact. ASSESSMENT: An 81-year-old gentleman, now 4 days out from a left total knee replacement. He seems t o be doing quite a bit better today. His pain is controlled. He has been getting around better. PLAN: 1. DVT prophylaxis includes thigh-high TEDs, SCDs, and Lovenox. He will be on this for a total of 2 weeks. 2. PT/OT, weightbear as tolerated. Left total knee protocol. 3. Pain control, doing well with current pain regimen. 4. Disposition: Plan to discharge to home with home health hopefully later today if he does okay in therapy. Job ID: [id number]
[2022-02-26] MEDS: DOCUSATE SODIUM 100 MG CAP PO SCH (09:10)
[2022-02-26] MEDS: ASCORBIC ACID 500 MG TAB PO SCH (09:10)
[2022-02-26] MEDS: DOCUSATE SODIUM/SENNA 50/8.6MG TAB PO SCH (09:10)
[2022-02-26] MEDS: lisinopril 40 MG TAB PO SCH (09:11)
[2022-02-26] MEDS: FOLIC ACID 1 MG TAB PO SCH (09:11)
[2022-02-26] MEDS: MULTIVITAMIN TAB PO SCH (09:11)
[2022-02-26] MEDS: TAMSULOSIN HCL 0.4 MG CAP PO SCH (09:11)
[2022-02-26] MEDS: TAPENTADOL HCL ER 50 MG TABCR PO SCH (09:11)
[2022-02-26] MEDS: HYDROXYCHLOROQUINE SULFATE 200 MG TAB PO SCH (09:11)
[2022-02-26] MEDS: oxyCODONE/ACETAMINOPHEN 10-325 TAB PO PRN (09:12)
[2022-02-26] MEDS: ENOXAPARIN INJ 30 MG/0.3 ML SYR SQ SCH (09:49)
== END 2022-02-26 14:35 | disposition home health service (06) ==
LOC: 3E 08:39 → ASU 08:39

== ENCOUNTER 2023-10-16 04:08 | Observation (INO) ==
[2023-10-16 05:25] LABS: Adenovirus PCR Not Detected (NotDetected); Bordetella parapertussis PCR Not Detected (NotDetected); Bordetella pertussis PCR Not Detected (NotDetected); Chlamydia pneumoniae PCR Not Detected (NotDetected); Coronavirus 229E PCR Not Detected (NotDetected); Coronavirus HKU1 PCR Not Detected (NotDetected); Coronavirus NL63 PCR Not Detected (NotDetected); Coronavirus OC43PCR Not Detected (NotDetected); Human Metapneumovirus PCR Not Detected (NotDetected); Influenza A PCR Not Detected (NotDetected); Influenza B PCR Not Detected (NotDetected); Mycoplasma pneumoniae PCR Not Detected (NotDetected); Parainfluenza Virus 1 PCR Not Detected (NotDetected); Parainfluenza Virus 2 PCR Not Detected (NotDetected); Parainfluenza Virus 3 PCR Not Detected (NotDetected); Parainfluenza Virus 4 PCR Not Detected (NotDetected); Respiratory Syncytial VirusPCR Not Detected (NotDetected); Rhinovirus/Enterovirus PCR Not Detected (NotDetected)
[2023-10-16 05:32] LABS: Albumin Globulin Ratio 1.6 (0.9-2); Albumin Level 4.2 gm/dl (3.4-5.0); BUN Creatinine Ratio 16.2 (10-20); Bilirubin,Total 1.3 mg/dl (0.2-1.0); Calcium 9.1 mg/dl (8.6-10.3); Creatinine Clr Calc Pharmacy 89.5 ml/min; Est GFR (African American) 99.6 ml/min; Est GFR (Non-African American) 85.9 ml/min; Globulin 2.6 gm/dl (2.5-4.0); Potassium 3.7 mmol/L (3.5-5.1); Total Protein 6.8 gm/dl (6.0-8.3)
[2023-10-16 05:33] LABS: Coronavirus CoV-2 (COVID19)PCR DETECTED (NotDetected)
[2023-10-16 05:39] LABS: Troponin I High Sensitivity 46.2 pg/ml (0-20)
[2023-10-16 05:47] LABS: Basophils # (auto) 0.07 K/uL (0.00-0.20); Basophils % (auto) 0.7 %; Hematocrit (blood only) 44.9 % (42.0-52.0); Immature Granulocytes # (auto) 0.05 K/uL (0.01-0.20); Immature Granulocytes % (auto) 0.5 %; Lymphocytes # (auto) 0.41 K/uL (1.20-3.40); Mean Corpuscular Hemoglobin 30.9 pg (25.0-34.0); Mean Corpuscular Hgb Conc 33.4 g/dL (32.0-36.0); Mean Corpuscular Volume 92.6 fL (80.0-100.0); Mean Platelet Volume 11.3 fL (9.4-12.4); Monocytes # (auto) 0.91 K/uL (0.11-0.59); Monocytes % (auto) 8.8 %; Neutrophils # (auto) 8.79 K/uL (1.40-6.50); Platelet Count 199 K/uL (130-400); Red Blood Count 4.85 M/uL (4.70-6.10); White Blood Count 10.33 K/ul (4.8-10.8)
[2023-10-16] MEDS ORDERED: OPTIRAY 320 125ml IV ONE (06:15)
[2023-10-16 06:17] LABS: Partial Thromboplastin Time 28 Seconds (21-31); Prothrombin Time 11.4 Seconds (9.0-12.0)
[2023-10-16 06:21] LABS: D Dimer 830 ug/L FEU (0-500)
--- NOTE | 2023-10-16 06:45 | CT Scan Report ---
CT ANGIOGRAPHY OF THE CHEST, PULMONARY EMBOLUS PROTOCOL CLINICAL HISTORY: Hemoptysis, COVID 19 positive COMPARISON STUDY: Chest CT September 09, 2021. Chest radiograph October 16, 2023. TECHNIQUE: Following IV administration of 117 mL of Optiray, helical axial images of the chest were o btained utilizing the pulmonary embolus protocol. Maximal intensity projections and sagittal and cor onal reformats were viewed on an independent 3D workstation. IV contrast was administered without co mplication. Automated exposure control was utilized for the study. A dose lowering technique was ut ilized adhering to the principles of ALARA. CT DOSE: 911. mGy.cm FINDINGS: No pulmonary emboli are identified. There is no thoracic aortic dissection. Moderate cardi omegaly is present. There is extensive coronary artery calcification. A large hiatal hernia with intr athoracic stomach is again noted. This was shown on prior exam. Left basilar opacity reflects atelect asis. There is no consolidation to suggest pneumonia. No pneumothorax or pleural effusion is present. There is no thoracic lymphadenopathy. No acute fractures within the bony thorax are identified. Nodu larity of the liver surface is incidentally noted. IMPRESSION: 1. No pulmonary emboli identified. 2. No acute intrathoracic findings. 3. Moderate cardiomegaly and extensive coronary artery calcification. 4. Large hiatal hernia with intrathoracic stomach. Subpleural left lower lobe opacity suggestive of a telectasis. ACT 112: Negative or not required by law. Electronically signed by: Fidel Melgar M.D. 10/16/2023 6:42 AM
--- NOTE | 2023-10-16 06:46 | XRay Report ---
XR chest 1V portable CLINICAL HISTORY: Cough. Fever. COMPARISON STUDY: Chest CT May 09, 2021. Chest radiograph and right rib series November 17, 2022. FINDINGS: No pneumothorax or pleural effusion is present. Left basilar opacity favors atelectasis. Th is is unchanged. A hiatal hernia is again noted. Cardiomegaly is unchanged. No evidence for pulmonary edema. No consolidation to suggest pneumonia. IMPRESSION: No acute cardiopulmonary findings. No change in appearance of the chest. ACT 112: Negative or not required by law. Electronically signed by: Fidel Melgar M.D. 10/16/2023 6:45 AM
--- NOTE | 2023-10-16 07:07 | CT Scan Report ---
CT OF THE HEAD WITHOUT CONTRAST CLINICAL HISTORY: Confusion. Fever. Covid. COMPARISON STUDY: MRI of the brain December 19, 2017. Head CT June 28, 2019. CT DOSE: 1037.91 mGy.cm TECHNIQUE: Helical axial images of the head were obtained without IV contrast. Automated exposure con trol was utilized for the study. A dose lowering technique was utilized adhering to the principles o f ALARA. FINDINGS: Sensitivity for detection of intracranial hemorrhage is slightly diminished given intravasc ular contrast from recent contrast-enhanced CT. However, no acute intracranial hemorrhage is identifi ed. Ventricular system is stable. Basal cisterns are patent. There are no extra-axial collections. Wh ite matter hypodensities are unchanged and favor small vessel disease. There are no findings to sugge st acute dural sinus thrombosis or acute territorial infarct. There is no calvarial fracture. The pos toperative findings within the sinuses. Mild polypoid mucosal thickening of the ethmoid sinuses is in cidentally noted. IMPRESSION: No acute intracranial findings. ACT 112: Negative or not required by law. Electronically signed by: Fidel Melgar M.D. 10/16/2023 7:05 AM
--- NOTE | 2023-10-16 08:07 | History & Physical Report ---
Date of Service October 16, 2023 Assessment & Plan (1) COVID-19: Plan: Presents with 2 days of cough with scant hemoptysis, increased weakness and some confusion. Tested positive for COVID-19 on admission. D-dimer elevated but CTA of the chest is negative for PE but does show some atelectasis and a large intrathoracic hiatal hernia He is not hypoxic, no pneumonia but does have bronchitis likely causing his mild hemoptysis With mildly elevated troponin but no chest pain or ischemic changes acutely on EKG -Admit on observation to telemetry for arrhythmia monitoring, obtain echocardiogram for mildly elevated troponin, and trend serial troponin -Start Remdesivir -Not hypoxic so does not need dexamethasone -Start guaifenesin DM cough syrup as needed -Afrin as needed for nasal congestion -Tylenol as needed for fevers or pain (2) Demand ischemia of myocardium: Plan: Mildly elevated troponin on arrival in the setting of [id number] is 46 and then 45 on repeat. No chest pain,ECG without ischemic changes As above, check echo, trend serial troponin (3) HTN (hypertension): Plan: Blood pressures are elevated and he has a history of labile hypertension He does have peripheral edema Continue home felodipine, lisinopril, triamterene/HCTZ Clonidine as needed (4) Rheumatoid arthritis: Plan: Hold home methotrexate and hydroxychloroquine Continue home folic acid Continue home Percocet as needed for pain (5) Cervical spondylosis: Plan: Has chronic neck and back pain Continue home Percocet as needed for pain (6) GERD (gastroesophageal reflux disease): Plan: Continue home PPI Has large intrathoracic hiatal hernia (7) Permanent atrial fibrillation: Plan: Rates are controlled to bradycardic and he is not on rate controlling medications He is not on anticoagulation due to history of recurrent GI bleeds Monitor on telemetry Follow BMP and magnesium and replace electrolytes to keep optimal Plan DVT prophylaxis-Presley, POP oro Disposition-bring in on observation to telemetry PT/OT consulted for weakness History of Present Illness Chief Complaint: Coughing up blood, confusion Primary Care Provider: Bj Calvillo MD This patient is an 82-year-old male with a history of permanent atrial fibrillation not on anticoagulation due to recurrent GI bleeds, HTN, neuropathy, RA, BPH, depression/anxiety, and chronic neck and back pain on opioids who presents to the ER after coughing up about a nickel sized of the dark red blood mixed with sputum. He is also been weaker and more confused as per his . He reports he has been coughing for the last 2 days but no fevers that he knows of. He has not been short of breath or had any chest pain. He has been more generally weak and slid off the couch onto the ground yesterday. In the ER, he was found to be positive for COVID, had a mildly elevated troponin, with rate controlled A-fib but no ischemic changes on EKG. CTA of the chest was negative and CT head was negative. When I saw him, he was mentating very well. He otherwise had no complaints. Allergies Allergy/AdvReac Type Severity Reaction Status Date / Time latex Allergy Intermediate Skin Verified 10/16/23 08:25 redness (with gloves) aspirin AdvReac Severe Bleeding Verified 10/16/23 08:25 NSAIDS (Non-Steroidal AdvReac Severe Bleeding Verified 10/16/23 08:25 Anti-Inflamma Home Medications Medication Instructions Recorded Confirmed Type folic acid 1 mg tablet 1 mg PO QAM 07/06/18 10/16/23 History methotrexate sodium 2.5 mg tablet 15 mg PO WK 06/28/19 10/16/23 History hydroxychloroquine 200 mg tablet 200 mg PO QAM 10/26/21 10/16/23 History sennosides 8.6 mg-docusate sodium 1 tab-cap PO DAILY PRN 04/12/22 10/16/23 Rx 50 mg tablet (Senokot-S) constipation #90 tabs pantoprazole 40 mg tablet,delayed 40 mg PO QPM #90 tabs 12/13/22 10/16/23 Rx release (Protonix) clonidine HCl 0.1 mg tablet 0.1 mg PO DAILY PRN hypertensive 01/18/23 10/16/23 Rx emergency #90 tabs lisinopril 40 mg tablet 40 mg PO QAM #90 tabs 03/03/23 10/16/23 Rx felodipine 2.5 mg tablet,extended 2.5 mg PO DAILY #90 tabs 06/06/23 10/16/23 Rx release 24 hr triamterene 37.5 1 tab PO DAILY 08/07/23 10/16/23 History mg-hydrochlorothiazide 25 mg tablet cholecalciferol (vitamin D3) 50 2,000 unit PO DAILY 08/29/23 10/16/23 History mcg (2,000 unit) capsule oxycodone-acetaminophen 10 mg-325 1 tab PO Q6H PRN pain #120 tabs 09/20/23 10/16/23 Rx mg tablet (Percocet) Past Med/Surg History Medical History Lumbar spondylosis Encounter for pre-operative examination Left knee DJD Encounter for pre-operative examination Right knee DJD Asthma Permanent atrial fibrillation Not chronically anticoagulated d/t recurrent GI bleeding, follows with Dr. 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 No issues noted per post-op anesthesia progress note. Hx of cataract surgery R/L History of lumbar surgery 1982 H/O knee surgery Left knee arthroscopy Family History Father , age 66 of an OR Myocardial infarction Mother , age 83 of dementia Alzheimer disease Uncle Cancer Denies family history of Ovarian cancer Prostate cancer Breast cancer Colorectal cancer Social History Smoking Status: Never smoker Second Hand Exposure: No; Do You Dip or Chew Tobacco: No; Hx Alcohol Use: No Hx Substance Use: No Preferred Language: Algerian Communication Ability: Effective Visual Impairment: No Limitations Hearing Ability: Normal Pulp Grinder Feeder Required: No Beliefs That Will Affect Care: None marital status: Current Living Situation: Spouse current occupational status: retired Other Information That Helps Us Care for You: No other: 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 [place] Feels Safe at Home: Yes Safety Concerns: Feels Safe At This Time Childhood Exposure to Second-Hand Smoke: Yes Dental Care, Regularly: Yes Physical Activity Frequency: 1-2 Times per Week Seatbelt Use: always Sunscreen Use: No Assistive Devices: Hearing Aid - Bilateral Review of Systems Review of Systems: All systems reviewed & are unremarkable except as noted in HPI & below Physical Exam Constitutional: WD/WN, vitals as above Eyes: PERRL, conjunctivae normal, anicteric sclerae ENMT: external ear and nose normal, oropharynx normal Neck: trachea midline, no thyromegaly Respiratory: normal respiratory effort, lungs clear to auscultation Cardiovascular: Rate/Rhythm: regular rate and + irregularly irregular Heart Sounds: no murmur Extremities: + edema (1+ pitting edema bilateral legs) Chest (Breasts): Chest: normal inspection of chest Gastrointestinal (Abdomen): normal bowel sounds, soft, nontender, no he patosplenomegaly Musculoskeletal: Extremities: extremities normal to inspection; no cyanosis and no clubbing Skin: no rashes, warm and dry Neurologic: moves all extremities and awake; no focal motor deficits Psychiatric: A+Ox3, euthymic affect Lymphatic: no lymphedema Results & Data Results & Data Vital Signs (Past 12 Hours) Vital Signs Temp Pulse Pulse Resp BP BP Pulse Ox 10/16/23 07:00 56 L 18 169/88 H 95 10/16/23 06:24 51 L 10/16/23 04:15 36.8 C 68 18 182/96 H 97 O2 Del Method 10/16/23 07:00 Room Air 10/16/23 06:24 10/16/23 04:15 Room Air Laboratory Results CBC, CMP, troponin, coags, D-dimer reviewed, viral respiratory panel bio fire reviewed Diagnostic Findings Chest X-Ray 10/16/23 04:22 XR chest 1V portable CLINICAL HISTORY: Cough. Fever. COMPARISON STUDY: Chest CT May 09, 2021. Chest radiograph and right rib series November 17, 2022. FINDINGS: No pneumothorax or pleural effusion is present. Left basilar opacity favors atelectasis. This is unchanged. A hiatal hernia is again noted. Cardiomegaly is unchanged. No evidence for pulmonary edema. No consolidation to suggest pneumonia. IMPRESSION: No acute cardiopulmonary findings. No change in appearance of the chest. ACT 112: Negative or not required by law. Electronically signed by: Fidel Melgar M.D. 10/16/2023 6:45 AM Chest CTA 10/16/23 05:33 CT ANGIOGRAPHY OF THE CHEST, PULMONARY EMBOLUS PROTOCOL CLINICAL HISTORY: Hemoptysis, COVID 19 positive COMPARISON STUDY: Chest CT September 09, 2021. Chest radiograph October 16, 2023. TECHNIQUE: Following IV administration of 117 mL of Optiray, helical axial images of the chest were obtained utilizing the pulmonary embolus protocol. Maximal intensity projections and sagittal and coronal reformats were viewed on an independent 3D workstation. IV contrast was administered without complication. Automated exposure control was utilized for the study. A dose lowering technique was utilized adhering to the principles of ALARA. CT DOSE: 911. mGy.cm FINDINGS: No pulmonary emboli are identified. There is no thoracic aortic dissection. Moderate cardiomegaly is present. There is extensive coronary artery calcification. A large hiatal hernia with intrathoracic stomach is again noted. This was shown on prior exam. Left basilar opacity reflects atelectasis. There is no consolidation to suggest pneumonia. No pneumothorax or pleural effusion is present. There is no thoracic lymphadenopathy. No acute fractures within the bony thorax are identified. Nodularity of the liver surface is incidentally noted. IMPRESSION: 1. No pulmonary emboli identified. 2. No acute intrathoracic findings. 3. Moderate cardiomegaly and extensive coronary artery calcification. 4. Large hiatal hernia with intrathoracic stomach. Subpleural left lower lobe opacity suggestive of atelectasis. ACT 112: Negative or not required by law. Electronically signed by: Fidel Melgar M.D. 10/16/2023 6:[address] 10/16/23 06:34 CT OF THE HEAD WITHOUT CONTRAST CLINICAL HISTORY: Confusion. Fever. Covid. COMPARISON STUDY: MRI of the brain December 19, 2017. Head CT June 28, 2019. CT DOSE: 1037.91 mGy.cm TECHNIQUE: Helical axial images of the head were obtained without IV contrast. Automated exposure control was utilized for the study. A dose lowering technique was utilized adhering to the principles of ALARA. FINDINGS: Sensitivity for detection of intracranial hemorrhage is slightly diminished given intravascular contrast from recent contrast-enhanced CT. However, no acute intracranial hemorrhage is identified. Ventricular system is stable. Basal cisterns are patent. There are no extra-axial collections. White matter hypodensities are unchanged and favor small vessel disease. There are no findings to suggest acute dural sinus thrombosis or acute territorial infarct. There is no calvarial fracture. The postoperative findings within the sinuses. Mild polypoid mucosal thickening of the ethmoid sinuses is incidentally noted. IMPRESSION: No acute intracranial findings. ACT 112: Negative or not required by law. Electronically signed by: Fidel Melgar M.D. 10/16/2023 7:05 AM ECG Additional Comments: ECG on 10/16/2023 at 0 555 with atrial fibrillation with rate 55, septal infarct, age undetermined, no acute ischemic changes Code Status & VTE Plan Code Status DNR/DNI VTE Prophylaxis Plan VTE Prophylaxis will be ordered: Yes PG Care Time/CCT Total # of Minutes Spent Total Time Spent with Patient: Total time spent is greater than 50% in coordination of care (as documented) at patient's floor/unit and/or counseling patient: Coding Level of Care Code 31369 INT INP/OBS CARE 3/75MIN Diagnoses COVID-19 U07.1 Demand ischemia of myocardium I24.89 HTN (hypertension) I10 Rheumatoid arthritis M06.9 Cervical spondylosis M47.812 GERD (gastroesophageal reflux disease) K21.9 Permanent atrial fibrillation I48.21
[2023-10-16] MEDS ORDERED: ALUMINUM/MAGNESIUM SUSP 30 ML UDC PO PRN (10:18)
[2023-10-16] MEDS ORDERED: ACETAMINOPHEN 325 MG TAB PO PRN (10:18)
[2023-10-16] MEDS ORDERED: DOCUSATE SODIUM/SENNA 50/8.6MG TAB PO PRN (10:18)
[2023-10-16] MEDS ORDERED: MAGNESIUM HYDROXIDE SUSP 30 ML UDC PO PRN (10:18)
[2023-10-16] MEDS ORDERED: cloNIDine HCL 0.1 MG TAB PO PRN (10:18)
[2023-10-16] MEDS ORDERED: ONDANSETRON INJ 2 MG/ML 2 ML VIAL IV PRN (10:18)
[2023-10-16] MEDS ORDERED: POLYETHYLENE (MIRALAX) 17 GM PACK PO PRN (10:18)
[2023-10-16] MEDS ORDERED: REMDESIVIR 200 MG in SODIUM CHLORIDE 0.9% 210 ML IV STA (10:28)
[2023-10-16] MEDS ORDERED: TRIAMTERENE/HCTZ 37.5/25MG TAB PO SCH (10:30)
[2023-10-16] MEDS: FELODIPINE 2.5 MG TABCR PO SCH (11:27)
[2023-10-16] MEDS: lisinopril 40 MG TAB PO SCH (11:27)
[2023-10-16] MEDS: FOLIC ACID 1 MG TAB PO SCH (11:27)
[2023-10-16] MEDS: oxyCODONE/ACETAMINOPHEN 10-325 TAB PO PRN ×2 (11:27→22:02)
[2023-10-16] MEDS ORDERED: OXYMETAZOLINE 0.05% 30 ML BTL NAE PRN (19:22)
--- NOTE | 2023-10-16 19:24 | XCELERA ---
[id number] [id number]
[2023-10-16] MEDS ORDERED: guaiFENesin/DEXTROM SYRUP 200MG/20MG 10ML UDC PO PRN (19:42)
[2023-10-16] MEDS ORDERED: PANTOprazole 40 MG TAB PO SCH (21:00)
--- NOTE | 2023-10-16 23:42 | Emergency Department Note ---
History of Present Illness General Chief complaint: Illness Stated complaint: FEVER 101.5,COUGHING UP BLOOD Time Seen by Provider: 10/16/23 04:22 History of Present Illness Maximum Pain Intensity: 4 This is an 82-year-old male presenting to the emergency department from home accompanied by his for evaluation of fever and hemoptysis. Patient has a history of A-fib and previously has been on anticoagulants, however he had recurrent GI bleeding and is off these medications. Patient has been somewhat confused per , and had an unwitnessed fall a day or 2 ago. The patient has family coming into town for the [place] holiday and is concerned about the coughing up blood. Patient has a history of hiatal hernia and associated GERD, and is curious if this may be related. He rates his current discomfort an 8/10. Home Medications Medication Instructions Recorded Confirmed Type folic acid 1 mg tablet 1 mg PO QAM 07/06/18 10/16/23 History methotrexate sodium 2.5 mg tablet 15 mg PO WK 06/28/19 10/16/23 History hydroxychloroquine 200 mg tablet 200 mg PO QAM 10/26/21 10/16/23 History sennosides 8.6 mg-docusate sodium 1 tab-cap PO DAILY PRN 04/12/22 10/16/23 Rx 50 mg tablet (Senokot-S) constipation #90 tabs pantoprazole 40 mg tablet,delayed 40 mg PO QPM #90 tabs 12/13/22 10/16/23 Rx release (Protonix) clonidine HCl 0.1 mg tablet 0.1 mg PO DAILY PRN hypertensive 01/18/23 10/16/23 Rx emergency #90 tabs lisinopril 40 mg tablet 40 mg PO QAM #90 tabs 03/03/23 10/16/23 Rx felodipine 2.5 mg tablet,extended 2.5 mg PO DAILY #90 tabs 06/06/23 10/16/23 Rx release 24 hr triamterene 37.5 1 tab PO DAILY 08/07/23 10/16/23 History mg-hydrochlorothiazide 25 mg tablet cholecalciferol (vitamin D3) 50 2,000 unit PO DAILY 08/29/23 10/16/23 History mcg (2,000 unit) capsule oxycodone-acetaminophen 10 mg-325 1 tab PO Q6H PRN pain #120 tabs 11/22/23 12/18/23 Rx mg tablet (Percocet) Allergies Allergy/AdvReac Type Severity Reaction Status Date / Time latex Allergy Intermediate Skin Verified 10/16/23 08:25 redness (with gloves) aspirin AdvReac Severe Bleeding Verified 10/16/23 08:25 NSAIDS (Non-Steroidal AdvReac Severe Bleeding Verified 10/16/23 08:25 Anti-Inflamma Past Med/Surg History Medical History Lumbar spondylosis Encounter for pre-operative examination Left knee DJD Encounter for pre-operative examination Right knee DJD Asthma Permanent atrial fibrillation Not chronically anticoagulated d/t recurrent GI bleeding, follows with Dr. 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 No issues noted per post-op anesthesia progress note. Hx of cataract surgery R/L History of lumbar surgery 1982 H/O knee surgery Left knee arthroscopy Family History Father , age [address] Myocardial infarction Mother , age 83 of dementia Alzheimer disease Uncle Cancer Denies family history of Ovarian cancer Prostate cancer Breast cancer Colorectal cancer Social History Smoking Status: Never smoker Second Hand Exposure: No; Do You Dip or Chew Tobacco: No; Hx Alcohol Use: No Hx Substance Use: No Preferred Language: Turkish Communication Ability: Effective Visual Impairment: No Limitations Hearing Ability: Normal Domestic Freight Forwarder Required: No Beliefs That Will Affect Care: None marital status: Current Living Situation: Spouse current occupational status: retired Other Information That Helps Us Care for You: No other: 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 [place] Feels Safe at Home: Yes Safety Concerns: Feels Safe At This Time Childhood Exposure to Second-Hand Smoke: Yes Dental Care, Regularly: Yes Physical Activity Frequency: 1-2 Times per Week Seatbelt Use: always Sunscreen Use: No Assistive Devices: Hearing Aid - Bilateral Review of Systems A total of 10 systems reviewed and were otherwise negative Physical Exam Vital Signs Vital Signs - 24 hr 10/16/23 04:15 10/16/23 06:24 10/16/23 07:00 Temperature 36.8 C Temperature Source Oral Pulse Rate 68 51 L Pulse Rate [Right Finger] 56 L Pulse Rhythm [Right Finger] Regular Pulse Strength [Right Finger] Normal Respiratory Rate 18 18 Respiratory Effort / Characteristics Non-Labored Respiratory Depth Normal Respiratory Pattern Regular Blood Pressure 182/96 H Blood Pressure [Left Arm] 169/88 H Blood Pressure Mean 124 Blood Pressure Mean [Left Arm] 115 Blood Pressure Position Sitting Blood Pressure Position [Left Arm] Sitting Pulse Oximetry 97 95 Oxygen Delivery Method Room Air Room Air Sepsis Recent Fever Within 48 Hours Yes Sepsis New/Unexplained Change in Mental Status N/A Sepsis Action Taken by Nursing No Action Required VITALS: Vitals are noted on the nurse's note and reviewed by myself. Vital signs stable. GENERAL: Well-developed, well-nourished, white male, who is mildly ill-appearing but overall pleasant and cooperative HEAD: Normocephalic atraumatic. NECK: Supple without nuchal rigidity. No lymphadenopathy. No thyromegaly. Cervical spine is nontender. HEART: Irregularly irregular LUNGS: Clear to auscultation bilaterally without wheezes, rales or rhonchi. No retractions or accessory muscle use. ABDOMEN: Positive normal bowel sounds x 4. Soft, nontender, without masses or organomegaly. No guarding or rebound tenderness. MUSCULOSKELETAL: No muscle atrophy, erythema, or edema noted. Full range of motion in all extremities. NEURO: Patient was alert and oriented to person place and time. CN II through XII grossly intact. GCS 15. Course Administered Medications Acetaminophen (Acetaminophen 325 Mg Tab) 650 mg PO Q4H PRN PRN Reason: Pain or Fever Stop: 11/15/23 10:17 Last Admin: 10/16/23 18:26 Dose: 650 mg Documented By: FAY Clonidine HCl (Clonidine Hcl 0.1 Mg Tab) 0.1 mg PO DAILY PRN PRN Reason: SBP>180 Stop: 11/15/23 10:17 Last Admin: 10/16/23 18:00 Dose: 0.1 mg Documented By: DAVID Felodipine (Felodipine 2.5 Mg Tabcr) 2.5 mg PO DAILY [facility] Stop: 11/15/23 10:29 Last Admin: 10/16/23 11:27 Dose: 2.5 mg Documented By: RAZ Folic Acid (Folic Acid 1 Mg Tab) 1 mg PO QAM [facility] Stop: 11/15/23 10:29 Last Admin: 10/16/23 11:27 Dose: 1 mg Documented By: RAZ Lisinopril (Lisinopril 40 Mg Tab) 40 mg PO QAM [facility] Stop: 11/15/23 10:17 Last Admin: 10/16/23 11:27 Dose: 40 mg Documented By: RAZ Oxycodone/Acetaminophen (Oxycodone/Acetaminophen 10-325 Tab) 1 tab PO Q6H PRN PRN Reason: moderate-severe pain Stop: 10/30/23 10:17 Last Admin: 10/16/23 22:02 Dose: 1 tab Documented By: Admin: 10/16/23 11:27 Dose: 1 tab Documented By: RAZ Oxymetazoline HCl (Oxymetazoline 0.05% 30 Ml Btl) 1 sprays ZURI BID PRN PRN Reason: nasal congestion Stop: 11/15/23 20:59 Last Admin: 10/16/23 20:07 Dose: 1 sprays Documented By: FAY Pantoprazole Sodium (Pantoprazole 40 Mg Tab) 40 mg PO QPM [facility] Stop: 11/15/23 20:59 Last Admin: 10/16/23 20:07 Dose: 40 mg Documented By: FAY Triamterene/Hydrochlorothiazide (Triamterene/Hctz 37.5/25mg Tab) 1 tab PO Q2D@0900 [facility] Stop: 11/15/23 10:29 Last Admin: 10/16/23 11:27 Dose: 1 tab Documented By: RAZ Discontinued Medications Remdesivir 200 mg/ Sodium (Chloride) 250 mls @ 125 mls/hr IV ONE STA; Protocol Stop: 10/16/23 12:27 Last Infusion: 10/16/23 14:23 Dose: Infused Documented By: Admin: 10/16/23 11:28 Dose: 125 mls/hr Documented By: RAZ Ioversol (Optiray 320 125ml) 125 ml IV ONCE ONE Stop: 10/16/23 06:16 Last Admin: 10/16/23 06:15 Dose: 117 ml Documented By: ABIODUN Medical Decision Making Differential Diagnosis Differential diagnosis includes, but is not limited to: Myocardial infarction, dysrhythmia, pericarditis, pneumothorax, aortic aneurysm/dissection, DVT/PE, anxiety, GERD, PUD, electrolyte imbalance, thyroid disorder, pneumonia, bronchitis, pancreatitis, and others Laboratory Data 10/16/23 04:32 10/16/23 04:32 Lab Results 10/16/23 10/16/23 10/16/23 Range/Units 04:27 04:32 07:04 WBC 10.33 (4.8-10.8) K/ul RBC 4.85 (4.70-6.10) M/uL Hgb 15.0 (14.0-18.0) g/dl Hct 44.9 (42.0-52.0) % MCV 92.6 (80.0-100.0) fL MCH 30.9 (25.0-34.0) pg MCHC 33.4 (32.0-36.0) g/dL RDW Std Deviation 51.0 H (36.4-46.3) fL RDW Coeff of Ankit 15.0 H (11.5-14.5) % Plt Count 199 (130-400) K/uL MPV 11.3 (9.4-12.4) fL Immature Gran % (Auto) 0.5 % Neut % (Auto) 85.0 % Lymph % (Auto) 4.0 % Daniels % (Auto) 8.8 % Eos % (Auto) 1.0 % Baso % (Auto) 0.7 % Neut # (Auto) 8.79 H (1.40-6.50) K/uL Lymph # (Auto) 0.41 L (1.20-3.40) K/uL Daniels # (Auto) 0.91 H (0.11-0.59) K/uL Eos # (Auto) 0.10 (0.00-0.50) K/uL Baso # (Auto) 0.07 (0.00-0.20) K/uL Immature Gran # (Auto) 0.05 (0.01-0.20) K/uL PT 11.4 (9.0-12.0) Seconds INR 1.0 (0.9-1.1) APTT 28 (21-31) Seconds PTT Ratio 1.0 D-Dimer 830 H* (0-500) ug/L FEU Sodium 134 L (136-145) mmol/L Potassium 3.7 (3.5-5.1) mmol/L Chloride 98 (98-107) mmol/L Carbon Dioxide 28 (21-32) mmol/L Anion Gap 8 (3-11) BUN 12 (6-23) mg/dl Creatinine 0.74 (0.6-1.4) mg/dl Est Cr Clr Drug Dosing 89.5 ml/min Est GFR ( Amer) 99.6 ml/min Est GFR (Non-Af Amer) 85.9 ml/min BUN/Creatinine Ratio 16.2 (10-20) Glucose 110 H (70-99(Fasting)) mg/dl Calcium 9.1 (8.6-10.3) mg/dl Total Bilirubin 1.3 H (0.2-1.0) mg/dl AST 30 (13-39) U/L ALT 16 (7-52) U/L Alkaline Phosphatase 98 (34-104) U/L Troponin I High Sens 46.2 H 45.2 H (0-20) pg/ml Total Protein 6.8 (6.0-8.3) gm/dl Albumin 4.2 (3.4-5.0) gm/dl Globulin 2.6 (2.5-4.0) gm/dl Albumin/Globulin Ratio 1.6 (0.9-2) Adenovirus (PCR) Not Detected (NotDetected) B. pertussis DNA (PCR) Not Detected (NotDetected) B.parapertussis DNA PCR Not Detected (NotDetected) C. pneumoniae DNA (PCR) Not Detected (NotDetected) Coronavirus OC43 (PCR) Not Detected (NotDetected) Coronavirus HKU1 (PCR) Not Detected (NotDetected) Coronavirus 229E (PCR) Not Detected (NotDetected) SARS-CoV-2 (PCR) DETECTED A* (NotDetected) Coronavirus NL63 (PCR) Not Detected (NotDetected) Human Metapneumovir PCR Not Detected (NotDetected) Influenza Type A (PCR) Not Detected (NotDetected) Influenza Type B (PCR) Not Detected (NotDetected) M. pneumoniae (PCR) Not Detected (NotDetected) Parainfluenza 1 (PCR) Not Detected (NotDetected) Parainfluenza 2 (PCR) Not Detected (NotDetected) Parainfluenza 3 (PCR) Not Detected (NotDetected) Parainfluenza 4 (PCR) Not Detected (NotDetected) RSV (PCR) Not Detected (NotDetected) Entero/Rhino (PCR) Not Detected (NotDetected) Imaging Data Radiologist's Impression: Chest X-Ray 10/16/23 04:22 XR chest 1V portable CLINICAL HISTORY: Cough. Fever. COMPARISON STUDY: Chest CT May 09, 2021. Chest radiograph and right rib series November 17, 2022. FINDINGS: No pneumothorax or pleural effusion is present. Left basilar opacity favors atelectasis. This is unchanged. A hiatal hernia is again noted. Cardiomegaly is unchanged. No evidence for pulmonary edema. No consolidation to suggest pneumonia. IMPRESSION: No acute cardiopulmonary findings. No change in appearance of the chest. ACT 112: Negative or not required by law. Electronically signed by: Fidel Melgar M.D. 10/16/2023 6:45 AM Chest CTA 10/16/23 05:33 CT ANGIOGRAPHY OF THE CHEST, PULMONARY EMBOLUS PROTOCOL CLINICAL HISTORY: Hemoptysis, COVID 19 positive COMPARISON STUDY: Chest CT September 09, 2021. Chest radiograph October 16, 2023. TECHNIQUE: Following IV administration of 117 mL of Optiray, helical axial images of the chest were obtained utilizing the pulmonary embolus protocol. Maximal intensity projections and sagittal and coronal reformats were viewed on an independent 3D workstation. IV contrast was administered without complication. Automated exposure control was utilized for the study. A dose lowering technique was utilized adhering to the principles of ALARA. CT DOSE: 911. mGy.cm FINDINGS: No pulmonary emboli are identified. There is no thoracic aortic dissection. Moderate cardiomegaly is present. There is extensive coronary artery calcification. A large hiatal hernia with intrathoracic stomach is again noted. This was shown on prior exam. Left basilar opacity reflects atelectasis. There is no consolidation to suggest pneumonia. No pneumothorax or pleural effusion is present. There is no thoracic lymphadenopathy. No acute fractures within the bony thorax are identified. Nodularity of the liver surface is incidentally noted. IMPRESSION: 1. No pulmonary emboli identified. 2. No acute intrathoracic findings. 3. Moderate cardiomegaly and extensive coronary artery calcification. 4. Large hiatal hernia with intrathoracic stomach. Subpleural left lower lobe opacity suggestive of atelectasis. ACT 112: Negative or not required by law. Electronically signed by: Fidel Melgar M.D. 10/16/2023 6:[address] 10/16/23 06:34 CT OF THE HEAD WITHOUT CONTRAST CLINICAL HISTORY: Confusion. Fever. Covid. COMPARISON STUDY: MRI of the brain December 19, 2017. Head CT June 28, 2019. CT DOSE: 1037.91 mGy.cm TECHNIQUE: Helical axial images of the head were obtained without IV contrast. Automated exposure control was utilized for the study. A dose lowering technique was utilized adhering to the principles of ALARA. FINDINGS: Sensitivity for detection of intracranial hemorrhage is slightly diminished given intravascular contrast from recent contrast-enhanced CT. However, no acute intracranial hemorrhage is identified. Ventricular system is stable. Basal cisterns are patent. There are no extra-axial collections. White matter hypodensities are unchanged and favor small vessel disease. There are no findings to suggest acute dural sinus thrombosis or acute territorial infarct. There is no calvarial fracture. The postoperative findings within the sinuses. Mild polypoid mucosal thickening of the ethmoid sinuses is incidentally noted. IMPRESSION: No acute intracranial findings. ACT 112: Negative or not required by law. Electronically signed by: Fidel Melgar M.D. 10/16/2023 7:05 AM ECG Data Attestation: I personally reviewed and interpreted this ECG as follows: Indication: + SOB/dyspnea Additional Comments: Atrial fibrillation with slow ventricular response @[address] elevation Septal infarct , age undetermined When compared with ECG of 26-OCT-2021 06:03, Septal infarct is now Present T wave amplitude has decreased in Lateral leads MDM Narrative Physical exam and history were performed. Nursing notes, EMR, and Medication List were personally reviewed. No social concerns were identified as barriers to patients care. Patient appears to have an episode of hemoptysis with fever at home. IV access was established and labs were obtained. Bio fire was performed. Chest x-ray does not show acute process per my and radiology interpretation. Patient's blood work is as above and was reviewed. He does not have a significantly elevated white blood cell count, gross anemia, bandemia, or significant electrolyte imbalance. Troponin is elevated at 46, and review of past EMR shows this is the first time he has had an elevated troponin. Bio fire is POSITIVE for COVID-19. Because of this patient was sent to CT scan for imaging of his chest. While patient was in CT was concerned that he may be more confused than normal and CT of the head was also performed. These were reviewed and do not show obvious acute process to account for the patient's symptoms. Repeat troponin was performed and was 45. I did touch base with on-call cardiology as well as the on-call hospitalist team. I do not feel the patient is well for discharge. He seems to have an increased troponin likely due from increased cardiac demand and is COVID-positive. Please see the hospitalist and cardiology teams dictations for further patient course, plan, disposition. The chart was completed utilizing [employer] Speech Voice Recognition Software. Grammatical errors, random word insertions, pronoun errors, and incomplete sentences are an occasional consequence of this system due to software limitations, ambient noise, and hardware issues. Any formal questions or concerns about the content, text, or information contained within the body of this dictation should be directly addressed to the provider for clarification. . Impression & Plan COVID-19, Demand ischemia of myocardium Discharge Plan Visit Data Chief Complaint: Illness Stated Complaint: FEVER 101.5,COUGHING UP BLOOD ED Provider: Lissette Garcia ED Midlevel Provider: Leonardo Rashid Discharge Problem: COVID-19, Demand ischemia of myocardium Patient Disposition: Admitted As Inpatient Discharge Instructions Interventions: ED Discharge Assessment Last Done: 10/16/23 10:10
[2023-10-17 06:29] LABS: Basophils # (auto) 0.05 K/uL (0.00-0.20); Basophils % (auto) 0.5 %; Eosinophils # (auto) 0.02 K/uL (0.00-0.50); Eosinophils % (auto) 0.2 %; Hematocrit (blood only) 44.5 % (42.0-52.0); Immature Granulocytes # (auto) 0.04 K/uL (0.01-0.20); Immature Granulocytes % (auto) 0.4 %; Lymphocytes # (auto) 0.72 K/uL (1.20-3.40); Lymphocytes % (auto) 7.8 %; Mean Corpuscular Hemoglobin 30.7 pg (25.0-34.0); Mean Corpuscular Hgb Conc 33.7 g/dL (32.0-36.0); Mean Corpuscular Volume 91.2 fL (80.0-100.0); Monocytes # (auto) 1.73 K/uL (0.11-0.59); Monocytes % (auto) 18.8 %; Neutrophils # (auto) 6.63 K/uL (1.40-6.50); Neutrophils % (auto) 72.3 %; Platelet Count 179 K/uL (130-400); RDW Coefficient of Variation 14.8 % (11.5-14.5); RDW Standard Deviation 49.4 fL (36.4-46.3); Red Blood Count 4.88 M/uL (4.70-6.10); White Blood Count 9.19 K/ul (4.8-10.8)
[2023-10-17 07:09] LABS: Albumin Globulin Ratio 1.5 (0.9-2); Albumin Level 3.7 gm/dl (3.4-5.0); BUN Creatinine Ratio 16.1 (10-20); C Reactive Protein 6.27 mg/dl (0-0.5); Calcium 8.8 mg/dl (8.6-10.3); Creatinine Clr Calc Pharmacy 76.1 ml/min; Est GFR (African American) 93.2 ml/min; Est GFR (Non-African American) 80.4 ml/min; Globulin 2.4 gm/dl (2.5-4.0); Magnesium 1.9 mg/dl (1.7-2.4); Potassium 3.4 mmol/L (3.5-5.1); Total Protein 6.1 gm/dl (6.0-8.3)
[2023-10-17] MEDS ORDERED: POTASSIUM CHLORIDE CRTAB 20 MEQ TABCR PO STA (07:41)
[2023-10-17] MEDS ORDERED: MAGNESIUM SULFATE / D5W 1 GM/100 ML BAG IV ONE (08:00)
[2023-10-17] MEDS: FELODIPINE 2.5 MG TABCR PO SCH (08:38)
[2023-10-17] MEDS: lisinopril 40 MG TAB PO SCH (08:38)
[2023-10-17] MEDS: FOLIC ACID 1 MG TAB PO SCH (08:38)
[2023-10-17 08:45] LABS: Troponin I High Sensitivity 80.3 pg/ml (0-20)
[2023-10-17] MEDS ORDERED: REMDESIVIR 100 MG in SODIUM CHLORIDE 0.9% 230 ML IV SCH (12:00)
--- NOTE | 2023-10-17 16:10 | Discharge Summary ---
Discharge Summary Date of Service October 17, 2023 Notes For Next Care Provider Medication Changes From Visit Added Paxlovid x 5 days HOLD MTX, Plaquenil Admission HPI Per Admitting Provider This patient is an 82-year-old male with a history of permanent atrial fibrillation not on anticoagulation due to recurrent GI bleeds, HTN, neuropathy, RA, BPH, depression/anxiety, and chronic neck and back pain on opioids who presents to the ER after coughing up about a nickel sized of the dark red blood mixed with sputum. He is also been weaker and more confused as per his . He reports he has been coughing for the last 2 days but no fevers that he knows of. He has not been short of breath or had any chest pain. He has been more generally weak and slid off the couch onto the ground yesterday. In the ER, he was found to be positive for COVID, had a mildly elevated troponin, with rate controlled A-fib but no ischemic changes on EKG. CTA of the chest was negative and CT head was negative. When I saw him, he was mentating very well. He otherwise had no complaints. Principal Dx & Hospital Course #1 = Principal Diagnosis (1) COVID-19: Presents with 2 days of cough with scant hemoptysis, increased weakness and some confusion. Tested positive for COVID-19 on admission. D-dimer elevated but CTA of the chest is negative for PE but does show some atelectasis and a large intrathoracic hiatal hernia He is not hypoxic, no pneumonia but does have bronchitis likely causing his mild hemoptysis With mildly elevated troponin but no chest pain or ischemic changes acutely on EKG Admitted and treated with 2 doses of Remdesevir-feeling much better and ready for discharge to home-will finish out 3 more days of Paxlovid Troponin remained mildly elevated,peaked at 90, no CP, had slow Afib as usual on tele. Demand ischemia ECHO no WMAs and with LVH as cause of elevated trop -Not hypoxic so does not need dexamethasone -treated w/ guaifenesin DM cough syrup as needed -Afrin as needed for nasal congestion -Tylenol as needed for fevers or pain Stable for dc to home (2) Demand ischemia of myocardium: Mildly elevated troponin on arrival in the setting of COVID-19 as above (3) HTN (hypertension): Blood pressures are elevated and he has a history of labile hypertension He does have peripheral edema Continue home felodipine, lisinopril, triamterene/HCTZ Clonidine as needed (4) Rheumatoid arthritis: Hold home methotrexate and hydroxychloroquine until 10/23 Continue home folic acid Continue home Percocet as needed for pain (5) Cervical spondylosis: Has chronic neck and back pain Continue home Percocet as needed for pain has polyneuropathy and chronic imbalance. He thinks he is pretty much at his baseline PT/OT recommending rehab but he declines this and says he will use a walker at home and continue with home PT/OT through [facility]-gave Rx for this (6) GERD (gastroesophageal reflux disease): Continue home PPI Has large intrathoracic hiatal hernia (7) Permanent atrial fibrillation: Rates are controlled to bradycardic and he is not on rate controlling medications He is not on anticoagulation due to history of recurrent GI bleeds replaced K+ for hypokalemia Plan DVT prophylaxis-POP [place] Disposition-dc to home with home PT/OT Discharge Exam Constitutional WD/WN, vitals as above Neck trachea midline, no thyromegaly Respiratory normal respiratory effort, lungs clear to auscultation Cardiovascular Rate/Rhythm: + bradycardic and + irregularly irregular Heart Sounds: no murmur Extremities: + edema (trace+ pitting edema bilateral legs) Chest (Breasts) Chest: normal inspection of chest Gastrointestinal (Abdomen) normal bowel sounds, soft, nontender, no hepatosplenomegaly Musculoskeletal Extremities: extremities normal to inspection; no cyanosis and no clubbing Skin no rashes, warm and dry Neurologic moves all extremities and awake; no focal motor deficits Psychiatric A+Ox3, euthymic affect Updated Medication List Medication Instructions Recorded Confirmed Type folic acid 1 mg tablet 1 mg PO QAM 07/06/18 10/16/23 History methotrexate sodium 2.5 mg tablet 15 mg PO WK 06/28/19 10/16/23 History hydroxychloroquine 200 mg tablet 200 mg PO QAM 10/26/21 10/16/23 History sennosides 8.6 mg-docusate sodium 1 tab-cap PO DAILY PRN 04/12/22 10/16/23 Rx 50 mg tablet (Senokot-S) constipation #90 tabs pantoprazole 40 mg tablet,delayed 40 mg PO QPM #90 tabs 12/13/22 10/16/23 Rx release (Protonix) clonidine HCl 0.1 mg tablet 0.1 mg PO DAILY PRN hypertensive 01/18/23 10/16/23 Rx emergency #90 tabs lisinopril 40 mg tablet 40 mg PO QAM #90 tabs 03/03/23 10/16/23 Rx felodipine 2.5 mg tablet,extended 2.5 mg PO DAILY #90 tabs 06/06/23 10/16/23 Rx release 24 hr triamterene 37.5 1 tab PO DAILY 08/07/23 10/16/23 History mg-hydrochlorothiazide 25 mg tablet cholecalciferol (vitamin D3) 50 2,000 unit PO DAILY 08/29/23 10/16/23 History mcg (2,000 unit) capsule oxycodone-acetaminophen 10 mg-325 1 tab PO Q6H PRN pain #120 tabs 09/20/23 10/16/23 Rx mg tablet (Percocet) nirmatrelvir 300 mg (150 mg See Rx Instructions PO .COMPLEX 10/17/23 Rx x2)-ritonavir 100 mg tablet,dose #30 ea pack (Paxlovid) Hospital Stay Data Consultations 10/16/23 08:01 ED Decision to Admit Stat Diagnostic Imagining Performed 10/16/23 05:33 CT angio chest PE protocol Stat 10/16/23 06:34 CT head/brain wo con Stat ECHO Pending Results Patient Have Any Pending Studies at Discharge: No Discharge Instructions Given to Patient (Per Discharging Provider) You were admitted with COVID-19 which caused some strain on your heart, but did NOT cause a heart attack. You felt much improved after receiving Remdesevir as an antiviral and you can continue on Paxlovid at home which will be prescribed for you. It was recommended that you go to short term rehab at [facility], but you have chosen to go home and continue working with home PT/OT. It is recommended that you use a walker with ambulation until your strength returns to its baseline. You should NOT TAKE your methotrexate and hydroxychloroquine until Monday, 10/23 to allow your immune system to fight off your COVID. Total Time Total Time Spent Total Time Spent (In Minutes): 40 min Coding Level of Care Code 94551 INP/OBS DISCH >30 MIN Diagnoses COVID-19 U07.1 Demand ischemia of myocardium I24.89 HTN (hypertension) I10 Rheumatoid arthritis M06.9 Cervical spondylosis M47.812 GERD (gastroesophageal reflux disease) K21.9 Permanent atrial fibrillation I48.21
--- NOTE | 2023-10-17 23:00 | Electrocardiogram Report ---
Test Reason : Blood Pressure : / mmHG Vent. Rate : 055 BPM Atrial Rate : 000 BPM P-R Int : 000 ms QRS Dur : 082 ms QT Int : 436 ms P-R-T Axes : 000 028 046 degrees QTc Int : 417 ms Atrial fibrillation with slow ventricular response Septal infarct , age undetermined Abnormal ECG When compared with ECG of 26-OCT-2021 06:03, Septal infarct is now Present T wave amplitude has decreased in Lateral leads Confirmed by Ramón Suero ([id number]) on 10/17/2023 11:00:43 PM Referred By: REFERRED SELF Confirmed By:Ramón Suero
--- NOTE | 2023-10-19 06:01 | Electrocardiogram Report ---
Test Reason : Blood Pressure : / mmHG Vent. Rate : 048 BPM Atrial Rate : 046 BPM P-R Int : 000 ms QRS Dur : 088 ms QT Int : 496 ms P-R-T Axes : 000 041 029 degrees QTc Int : 443 ms Atrial fibrillation with slow ventricular response Septal infarct (cited on or before 16-OCT-2023) Abnormal ECG When compared with ECG of 17-OCT-2023 05:15, No significant change Confirmed by Ramón Suero ([id number]) on 10/19/2023 6:00:44 AM Referred By: REFERRED SELF Confirmed By:Ramón Suero
== END 2023-10-17 17:59 | disposition home or self-care (01) ==
LOC: SUATTDRO → EDINP 04:08 → ED 04:08 → 2E 10:10

== ENCOUNTER 2025-06-26 16:27 | Inpatient (IN) ==
[2025-06-26 17:44] LABS: Appearance Urine Clear (Clear); Glucose Urine UA Negative (Negative)
[2025-06-26 17:48] LABS: Hematocrit (blood only) 48.6 % (42.0-52.0); Hemoglobin 15.9 g/dl (14.0-18.0); Immature Granulocytes # (auto) 0.03 K/uL (0.01-0.20); Immature Granulocytes % (auto) 0.3 %; Mean Corpuscular Hemoglobin 30.1 pg (25.0-34.0); Mean Corpuscular Volume 91.9 fL (80.0-100.0); Platelet Count 236 K/uL (130-400); RDW Standard Deviation 52.1 fL (36.4-46.3); Red Blood Count 5.29 M/uL (4.70-6.10); White Blood Count 10.62 K/ul (4.8-10.8)
[2025-06-26 17:56] LABS: Alanine Aminotransferase 6.0 U/L (7-52); Albumin Globulin Ratio 1.2 (0.9-2); Alkaline Phosphatase 145.0 U/L (34-104); Anion Gap 6.0 (3-11); Bilirubin,Total 1.1 mg/dl (0.2-1.0); Blood Urea Nitrogen 14.0 mg/dl (6-23); Calcium 9.5 mg/dl (8.6-10.3); Carbon Dioxide 32.0 mmol/L (21-32); Chloride 99.0 mmol/L (98-107); Creatinine Clr Calc Pharmacy 79.5 ml/min; Globulin 3.4 gm/dl (2.5-4.0); Glucose 79.0 mg/dl (70-99(Fasting)); Magnesium 2.1 mg/dl (1.7-2.4); Potassium 4.0 mmol/L (3.5-5.1); Sodium 137.0 mmol/L (136-145); Total Protein 7.5 gm/dl (6.0-8.3)
--- NOTE | 2025-06-26 18:08 | CT Scan Report ---
EXAMINATION: Head CT without CLINICAL HISTORY: Confusion PRIORS: 02/12/2025 TECHNIQUE: Contiguous axial images were obtained through the head without the use of intravenous contrast. Sagittal and coronal reformations are supplied. FINDINGS: Age appropriate parenchymal volume is noted. Small vessel occlusive disease. Mcintyre-white differentiation is preserved. No edema or midline shift. No intra-axial or extra-axial hemorrhage. Ventricles unchanged in size and configuration. Brainstem and cerebellum have a normal appearance. Posterior fossa cyst. Calvarium unremarkable. Paranasal sinuses and mastoid air cells are well-pneumatized. Globes are intact. No retrobulbar abnormality. IMPRESSION: No CT evidence of an acute intracranial abnormality. Electronically signed by Ana Paula Burk 06-26-2025 6:08 PM
[2025-06-26 18:11] LABS: Thyroid Stimulating Hormone 2.999 uIu/ml (0.300-4.500)
--- NOTE | 2025-06-26 18:30 | XRay Report ---
EXAM: Portable AP chest radiograph TECHNIQUE: AP portable radiograph of the chest was obtained. INDICATION: Shortness of breath Comparison: Chest radiograph February 12, 2025 FINDINGS: LINES and TUBES: None CARDIOVASCULAR: Cardiac silhouette is stable enlarged in size. Atherosclerosis of the thoracic aorta. LUNGS/PLEURA: Mild pulmonary vascular congestion is unchanged. Hazy bibasilar densities are also similar and may represent any combination of small layering pleural fluids, atelectasis as well as mild airspace disease. No discernible pneumothorax. OSSEOUS/OTHER: No displaced acute osseous process identified. IMPRESSION: Congestive changes of the cardiovascular system appears similar to the previous radiograph. Hazy bibasilar densities are again seen and may represent any combination of small layering pleural fluids, atelectasis as well as mild airspace disease. Electronically signed by Uriel Emmanuel 06-26-2025 6:26 PM
[2025-06-26] MEDS: LORazepam 1 MG/1 ML SYR ED Inj Use IV STA (20:18)
--- NOTE | 2025-06-26 21:06 | History & Physical Report ---
Date of Service June 26, 2025 Assessment & Plan (1) Hypertensive urgency: (2) Essential tremor: (3) Ambulatory dysfunction: (4) Altered mental status: (5) Elevated troponin: Plan Patient is a 84-year-old male with past medical history of A-fib not on current anticoagulation due to history of GI bleeding, diastolic CHF, essential tremor, GERD, HLD, rheumatoid arthritis. He has been following with [facility] neurology and had an extensive workup for Parkinson's which was recently negative on biopsy. He presented via EMS with his due to increasing tremors, difficulty walking today due to shuffling gait, and altered mental status. He was also found to have a blood pressure to the 231/128 admitted for hypertensive urgency as he is asymptomatic. #HTN urgency - BP 231/128 in the ED. History of elevated BP with anxiety and agitation which he currently has. Asymptomatic - denies ANGELES, dizziness, visual changes, etc. - BP improve to 180/105 after hydralazine 10mg IV and lasix 40mg IV in ED - will defer further antihypertensive prn orders at this time as primary goal is to control anxiety and agitation - Continue home lisinopril 40 Mg daily and felodipine 2.5 Mg daily #tremor/ambulatory dysfunction/AMS - Ongoing for several months and follows with [facility] neurology, has had extensive workup for Parkinson's disease. Acute worsening of tremor, ambulation, and mental status for 3 to 4 days. electrolytes stable, no acute infection, head CT negative. Recent B12 WNL, TSH WNL. Has had recent nerve biopsy which was negative for Parkinson's and trialed Sinemet for 1 to 2 months without any changes in symptoms. Patient reports neurologist strongly feels it is not Parkinson's however has not yet had a diagnosis. He is next considering a lumbar puncture. Previous workup appears to include B1, B12, folic acid, homocystine, A1c, magnesium, phosphorus, syphilis with RPR, phosphatidylethanaol level. - will obtain tick borne panel as does not appear to have been checked since 2020 - consult neurology - pt/ot consulted - has been following with [facility] PT in outpatient setting - agitated on admission - received Ativan 1mg IV x2, ordered q8h prn - If continues to be agitated throughout the night consider antipsychotics - one to one prn - fall and aspiration precautions #elevated troponin - Trop 54.2 -> 52.4. Chronically elevated, at baseline. Patient denies any chest pain. EKG showed permanent A-fib which patient has known history of. Trend troponin every 6 hours EKG with chest pain as needed Monitor on telemetry #CHF - clinically appears dry with dry MM, low concern for acute exacerbation at this time. BNP 179, unclear of patient's baseline. CXR with congestive changes similar to previous. Most recent echo 09/2024 revealed moderate LVH, moderate MR, EF 55 to 60%. Is not on any diuretics at baseline Received Lasix 40 Mg IV in the ED Defer further diuretic use as patient does not appear to be in acute exacer bation #Permanent a fib - in a fib at time of admission. Previously followed with Dr. Parra. Is not on any anticoagulation given history of GI bleeding. No rate or rhythm control. #RA - takes methotrexate on Monday evenings, continue hydroxychloroquine and prn oxycodone. #GERD - continue PPI VTE ppx: Lovenox Dispo: PCU with HTN urgency Admission and Anticipated Discharge Date Admission Date: 06/26/25 History of Present Illness Chief Complaint: weakness Primary Care Provider: Bj Calvillo MD Patient is a 84-year-old male with past medical history of A-fib not on current anticoagulation due to history of GI bleeding, diastolic CHF, essential tremor, GERD, HLD, rheumatoid arthritis. He has been following with [facility] neurology and had an extensive workup for Parkinson's which was recently negative on biopsy. He presented via EMS with his due to increasing tremors, difficulty walking today due to shuffling gait, and altered mental status. He was also found to have a blood pressure to the 231/128 admitted for hypertensive urgency as he is asymptomatic. Patient seen at bedside with his present. Difficult to obtain history given acute confusion but at bedside with assistance. He has had these tremors for 3 to 4 months with an extensive workup and they do not have answers, they are aware that the tremors will not change). Follows with [facility] neurology in [place] and he recently had a trial of Sinemet for 1 to 2 months which did not change his symptoms. He also recently had a biopsy which was negative for Parkinson's and Lewy body dementia. They are considering a lumbar puncture or possible shunt. Over the past few days he has had worse tremors and shuffling gait. He typically uses walker at baseline however was unable to ambulate today. He has been following with [facility] recently and had PT on Monday with difficulty. His also stated he is not acting appropriately today. She noted to have significantly elevated blood pressure in the ED. 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 He received Ativan 1 Mg IV in the ED without improvement he denies any headaches, dizziness, lightheadedness, blurred vision. He is due for his evening medications. He wishes to be DNR/DNI. Allergies Allergy/AdvReac Type Severity Reaction Status Date / Time latex Allergy Intermediate Skin Verified 06/26/25 18:13 redness (with gloves) aspirin AdvReac Severe Bleeding Verified 06/26/25 18:13 NSAIDS (Non-Steroidal AdvReac Severe Bleeding Verified 06/26/25 18:13 Anti-Inflamma Home Medications Medication Instructions Recorded Confirmed Type folic acid 1 mg tablet 1 mg PO QAM 07/06/18 06/26/25 History methotrexate sodium 2.5 mg tablet 15 mg PO WK 06/28/19 06/26/25 History pantoprazole 40 mg tablet,delayed 40 mg PO QPM #90 tabs 09/30/24 06/26/25 Rx release (Protonix) lisinopril 40 mg tablet 40 mg PO QAM #90 tabs 01/02/25 06/26/25 Rx hydroxychloroquine 200 mg tablet 200 mg PO BID 01/21/25 06/26/25 History polyethylene glycol 3350 17 17 g PO QAM 02/12/25 06/26/25 History gram/dose oral powder (Miralax) felodipine 2.5 mg tablet,extended 2.5 mg PO DAILY #90 tabs 03/26/25 06/26/25 Rx release 24 hr oxycodone-acetaminophen 10 mg-325 1 tab PO Q6H PRN pain #120 tabs 06/04/25 06/26/25 Rx mg tablet (Percocet) nortriptyline 10 mg capsule 20 mg (2 x 10 mg) PO HS #60 caps 06/12/25 06/26/25 Rx Past Med/Surg History Problem List (Updated 06/27/25 @ 00:34 by Zackery Grimm DO) Hypertension (Acute) Ambulatory dysfunction (Acute) Confusion (Acute) Elevated troponin Altered mental status Ambulatory dysfunction Hypertensive urgency Parkinson disease Leg edema Chronic insomnia COVID-19 (Acute) Permanent atrial fibrillation Not chronically anticoagulated d/t recurrent GI bleeding, follows with Dr. Parra Right knee pain IT band syndrome HTN (hypertension) (Acute) Rheumatoid arthritis H/O: GI bleed (Acute) Hx recurrent (several years ago) Cervical radiculopathy (Chronic) Cervical spondylosis (Chronic) lumbar Anxiety disorder (Chronic) Osteoarthritis of shoulders, bilateral (Chronic) Mild cognitive impairment (Acute) Depression with anxiety (Acute) Essential tremor Idiopathic polyneuropathy Urinary frequency (Acute) Tubular adenoma of colon (Acute) Trigger finger, acquired (Acute) Tinnitus of both ears (Acute) Sleep apnea (Acute) Shortness of breath (Acute) Sensorineural hearing loss (SNHL) of both ears (Acute) Lumbar radiculopathy (Acute) Labile hypertension (Acute) Insomnia (Acute) Hyperglycemia (Acute) Hip pain (Acute) GERD (gastroesophageal reflux disease) (Acute) Fatigue (Acute) Enlarged prostate (Acute) Edema (Acute) Dyspnea (Acute) Dyslipidemia (Acute) Disturbance of smell (Acute) Constipation (Acute) Chronic pain (Acute) Cerebral atherosclerosis (Acute) Carotid artery plaque (Acute) Benign prostatic hyperplasia with urinary obstruction (Acute) Asthma (Acute) Ankle pain, right (Acute) Left inguinal pain Permanent atrial fibrillation Benign skin lesion of forearm Arthralgia of both knees Anticoagulation management encounter Back pain 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 Bradycardia (Acute) Symptomatic bradycardia (Acute) Near syncope (Acute) Somnolence (Acute) Left knee DJD Status post total left knee replacement Constipation due to opioid therapy Lumbar spondylosis Herpes zoster Lower extremity weakness Trochanteric bursitis, left hip Left hamstring muscle strain Contusion of right arm Medical History Chronic idiopathic constipation 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, NYHA class 2 Demand ischemia of myocardium Encounter for pre-operative examination Encounter for pre-operative examination Right knee DJD Asthma Osteoarthritis Acid reflux Atrial flutter Surgical History History of total right knee replacement Hx of cataract surgery History of lumbar surgery H/O knee surgery Family History Father , age 66 of an [place] Myocardial infarction Mother , age 83 of dementia Alzheimer disease Uncle Cancer Denies family history of Ovarian cancer Prostate cancer Breast cancer Colorectal cancer Social History Smoking Status: Never smoker Second Hand Exposure: No; Do You Dip or Chew Tobacco: No; Hx Alcohol Use: No Hx Substance Use: No Preferred Language: Estonian Communication Ability: Effective Visual Impairment: No Limitations Hearing Ability: Normal Operations Administrative Assistant Required: No Beliefs That Will Affect Care: None marital status: Current Living Situation: Spouse current occupational status: retired 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 Non-toxic appearing. HEENT- EOMI, mucous membranes dry. Hearing grossly intact. Heart-normal S1 and S2. No murmurs, rubs or gallops. Lungs-clear bilaterally, no respiratory distress, no accessory muscle use. Abdomen-normal bowel sounds and soft. No ascites noted. Non-tender. Extremities- no clubbing, cyanosis, or edema. Psychiatric-normal affect. Results & Data Results & Data Vital Signs (Past 12 Hours) Vital Signs Temp Pulse Resp BP BP Pulse Ox O2 Del Method 06/26/25 20:28 61 06/26/25 20:01 61 18 231/128 H 96 06/26/25 19:09 52 L 14 217/92 H 96 06/26/25 18:03 55 L 19 180/112 H 97 06/26/25 17:20 70 06/26/25 17:03 66 19 219/103 H 06/26/25 16:52 240/116 H 06/26/25 16:37 36.4 C L 67 18 96 Room Air Laboratory Results reviewed CBC, CMP, mag, trop, BNP, TSH, UA Diagnostic Findings reviewed head CT and CXR Medications Administered ED - ativan 1 Mg IV, hydralazine 10 Mg IV, Lasix 40 Mg IV Admission Ativan 1 Mg IV ECG Additional Comments: a fib, rate 54 qtc 428 known hx of permanent a fib Code Status & VTE Plan Code Status dnr/dni Supervising Physician Co-Signing Physician Notes Attending addendum: I have physically seen this patient, have supervised the RAQUEL's activities, and agree with the H&P unless as otherwise noted. Assessment and Plan: The patient is a 84-year-old male with past medical history including atrial fibrillation, diastolic CHF, essential tremor, GERD, hyperlipidemia, rheumatoid arthritis, and history of GI bleeding preventing use of anticoagulation. [facility] neurology has undergone extensive workup for Parkinson's with a recently negative biopsy. His arrives with him via EMS due to altered mental status, increasing tremors, and difficulty walking today due to shuffling gait. Upon arrival to the ED he was found to have a blood pressure of 240/116, and heart rate 67. [facility] Hy[facility]ensive urgency- Patient was noted to have a history of increased blood pressure with anxiety and agitation, which she currently has. He is otherwise asymptomatic. Patient was given hydralazine 10 mg IV and furosemide 40 mg IV from the ED, follow-up blood pressure 180/105. Will continue home lisinopril 40 mg daily and felodipine 2.5 mg daily Elevated troponin/permanent atrial fibrillation/CHF- Troponin initially 54.2, with follow-up 52.4 The patient will be admitted to telemetry for serial cardiac enzymes, serial EKG's, cardiac rhythm monitoring and a 2-D echocardiogram with Dopplers. Most recent echocardiogram on 1223 shows moderate LVH, moderate MR, and EF 55- 60% Status post furosemide 40 mg IV from the ED Not a candidate for anticoagulation due to history of GI bleeding Hydralazine 10 mg IV every 4 hours as needed systolic blood pressure greater than 160 Tremor/ambulatory dysfunction/altered mental status- Symptoms have been ongoing for several months, has had extensive workup for Parkinson's with [facility] neurology Reportedly had a negative nerve biopsy He reportedly had a trial of unknown dosing of Sinemet for 1 to 2 months without noticeable improvement Previous negative studies noted MRI brain 10/24/24 showed progressive involutional changes and microvascular ischemic disease. No signs of infection in labs, urine, CXR etc to treat. Nortriptylline and oxycodone may contribute to symptoms. [facility] is reportedly considering a lumbar puncture next Tick panel studies ordered PT/OT Consult neurology Agitation- s/p lorazepam 1mg IV x 2, continue q8h prn Anxiety- Significant component to see his symptoms RA- On MTX as outpatient continue hydroxychloroquine PG Care Time/CCT Total # of Minutes Spent Total Time Spent with Patient: Total time spent is greater than 50% in coordination of care (as documented) at patient's floor/unit and/or counseling patient: Coding Level of Care Code 75964 INT INP/OBS CARE 3/75MIN Diagnoses Hypertensive urgency I16.0 Essential tremor G25.0 Ambulatory dysfunction R26.2 Altered mental status R41.82 Elevated troponin R79.89
[2025-06-26] MEDS: FUROSEMIDE 40 MG/4 ML VIAL IV ONE (21:23)
--- NOTE | 2025-06-26 22:16 | Emergency Department Note ---
Impression & Plan Confusion, Ambulatory dysfunction, Hypertension ED Provider Note Diagnosis: Hypertension, confusion, ambulatory dysfunction Disposition: Admission CHIEF COMPLAINT: Confusion, worsening tremors, trouble with walking HPI: Patient is an 84-year-old male presenting with complaint of worsening tremors. Patient states he has had extensive outpatient workup with neurology for concern for potential Parkinson's. Patient states that his MRIs and current workup has been negative so far. Patient was started on levodopa and attempt to try to see if that would help or help make a diagnosis. Patient reportedly per his family at bedside has had worsening gait over the past 24 hours time. Patient does not have any focal deficits. Patient also has had confusion. Patient has not had any reported trauma. Patient has not had fevers or chills. PAST MEDICAL HISTORY: See Below PAST SURGICAL HISTORY: See Below SOCIAL HISTORY: See Below HOME MEDICATIONS: See Below ALLERGIES: See Below VITALS: See Below PHYSICAL EXAMINATION: GENERAL: Moderate distress EYE EXAM: Normal conjunctiva. OROPHARYNX: Moist mucus membranes. Grossly normal dentition. NECK: Supple, LUNGS: Clear to auscultation. Normal chest wall mechanics. HEART: Irregular regular rhythm ABDOMEN: Abdomen soft, non-tender, normo-active bowel sounds, no masses, no rebound or guarding BACK: No CVA TTP. SKIN: No rashes and no bruising. UPPER EXTREMITIES: Upper extremities are grossly normal LOWER EXTREMITIES: Grossly normal, no edema. NEURO EXAM: A&O x3,, normal speech, moves all 4 extremities PSYCH: Cooperative MEDICAL DECISION MAKING: History obtained from: Patient, family ER Course: Patient is a an 84-year-old male presenting with worsening tremors confusion and ambulatory dysfunction. Patient per family has become significantly more confused over the past 24 hours time. Patient has no focal deficits on exam. Patient reportedly has history of A-fib but has not had most of the time. Patient's heart rate controlled currently. Patient had CT scan of the head negative for intracranial hemorrhage. Patient has no significant electrolyte abnormalities or signs of infection. Patient found to have significant agitation was given dose of Ativan with some improvement. Patient during ER course started to have worsening hypertension and was given dose of hydralazine due to his heart rate being in the 50s. Patient admitted to hospital service for further treatment and evaluation. Labs (independently interpreted) are significant for: No electrolyte abnormalities Imaging results (independently interpreted): Chest x-ray clear EKG interpretation (independently interpreted): Atrial fibrillation rate controlled no ST segment elevation or depression Medications given: Ativan Consultants: Hospitalist Chronic conditions affecting care: A-fib Triage Nursing notes reviewed and agree them. Vital Signs: reviewed and remarkable for: no significant abnormalities Past Med/Surg History Problem List (Updated 06/27/25 @ 00:34 by Zackery Grimm DO) Hypertension (Acute) Ambulatory dysfunction (Acute) Confusion (Acute) Elevated troponin Altered mental status Ambulatory dysfunction Hypertensive urgency Parkinson disease Leg edema Chronic insomnia COVID-19 (Acute) Permanent atrial fibrillation Not chronically anticoagulated d/t recurrent GI bleeding, follows with Dr. Parra Right knee pain IT band syndrome HTN (hypertension) (Acute) Rheumatoid arthritis H/O: GI bleed (Acute) Hx recurrent (several years ago) Cervical radiculopathy (Chronic) Cervical spondylosis (Chronic) lumbar Anxiety disorder (Chronic) Osteoarthritis of shoulders, bilateral (Chronic) Mild cognitive impairment (Acute) Depression with anxiety (Acute) Essential tremor Idiopathic polyneuropathy Urinary frequency (Acute) Tubular adenoma of colon (Acute) Trigger finger, acquired (Acute) Tinnitus of both ears (Acute) Sleep apnea (Acute) Shortness of breath (Acute) Sensorineural hearing loss (SNHL) of both ears (Acute) Lumbar radiculopathy (Acute) Labile hypertension (Acute) Insomnia (Acute) Hyperglycemia (Acute) Hip pain (Acute) GERD (gastroesophageal reflux disease) (Acute) Fatigue (Acute) Enlarged prostate (Acute) Edema (Acute) Dyspnea (Acute) Dyslipidemia (Acute) Disturbance of smell (Acute) Constipation (Acute) Chronic pain (Acute) Cerebral atherosclerosis (Acute) Carotid artery plaque (Acute) Benign prostatic hyperplasia with urinary obstruction (Acute) Asthma (Acute) Ankle pain, right (Acute) Left inguinal pain Permanent atrial fibrillation Benign skin lesion of forearm Arthralgia of both knees Anticoagulation management encounter Back pain 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 Bradycardia (Acute) Symptomatic bradycardia (Acute) Near syncope (Acute) Somnolence (Acute) Left knee DJD Status post total left knee replacement Constipation due to opioid therapy Lumbar spondylosis Herpes zoster Lower extremity weakness Trochanteric bursitis, left hip Left hamstring muscle strain Contusion of right arm Medical History Chronic idiopathic constipation 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, NYHA class 2 Demand ischemia of myocardium Encounter for pre-operative examination Encounter for pre-operative examination Right knee DJD Asthma Osteoarthritis Acid reflux Atrial flutter Surgical History History of total right knee replacement Hx of cataract surgery History of lumbar surgery H/O knee surgery Family History Father , age 66 of an [place] Myocardial infarction Mother , age 83 of dementia Alzheimer disease Uncle Cancer Denies family history of Ovarian cancer Prostate cancer Breast cancer Colorectal cancer Social History Smoking Status: Never smoker Second Hand Exposure: No; Do You Dip or Chew Tobacco: No; Hx Alcohol Use: No Hx Substance Use: No Preferred Language: Bengali Communication Ability: Effective Visual Impairment: No Limitations Hearing Ability: Normal Support Director Required: No Beliefs That Will Affect Care: None marital status: Current Living Situation: Spouse current occupational status: retired other: 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 [place] Feels Safe at Home: Yes Childhood Exposure to Second-Hand Smoke: Yes Dental Care, Regularly: Yes Physical Activity Frequency: 1-2 Times per Week Seatbelt Use: always Sunscreen Use: No Assistive Devices: None Allergies Allergies Allergy/AdvReac Type Severity Reaction Status Date / Time latex Allergy Intermediate Skin Verified 06/26/25 18:13 redness (with gloves) aspirin AdvReac Severe Bleeding Verified 06/26/25 18:13 NSAIDS (Non-Steroidal AdvReac Severe Bleeding Verified 06/26/25 18:13 Anti-Inflamma Home Meds Home Medications Medication Instructions Recorded Confirmed folic acid 1 mg tablet 1 mg PO QAM 07/06/18 06/26/25 methotrexate sodium 2.5 mg tablet 15 mg PO WK 06/28/19 06/26/25 hydroxychloroquine 200 mg tablet 200 mg PO BID 01/21/25 06/26/25 polyethylene glycol 3350 17 17 g PO QAM 02/12/25 06/26/25 gram/dose oral powder (Miralax) Previous Rx's Medication Instructions Recorded pantoprazole 40 mg tablet,delayed 40 mg PO QPM #90 tabs 09/30/24 release (Protonix) lisinopril 40 mg tablet 40 mg PO QAM #90 tabs 01/02/25 felodipine 2.5 mg tablet,extended 2.5 mg PO DAILY #90 tabs 03/26/25 release 24 hr oxycodone-acetaminophen 10 mg-325 1 tab PO Q6H PRN pain #120 tabs 06/04/25 mg tablet (Percocet) nortriptyline 10 mg capsule 20 mg (2 x 10 mg) PO HS #60 caps 06/12/25 Results & Data (ED) Vital Signs Vital Signs - 24 hr 06/26/25 16:37 06/26/25 16:52 06/26/25 17:03 Temperature 36.4 C L Temperature Source Oral Pulse Rate 67 66 Pulse Rate from SpO2 Sensor Respiratory Rate 18 19 Blood Pressure 219/103 H Blood Pressure [Right Arm] 240/116 H Blood Pressure Mean 141 Blood Pressure Mean [Right Arm] 157 Pulse Oximetry 96 Oxygen Delivery Method Room Air Sepsis Recent Fever Within 48 Hours Yes Sepsis New/Unexplained Change in Mental Status No Sepsis Action Taken by Nursing No Action Required 06/26/25 17:20 06/26/25 18:03 06/26/25 19:09 Temperature Temperature Source Pulse Rate 70 55 L 52 L Pulse Rate from SpO2 Sensor 54 L 51 L Respiratory Rate 19 14 Blood Pressure 180/112 H 217/92 H Blood Pressure [Right Arm] Blood Pressure Mean 134 133 Blood Pressure Mean [Right Arm] Pulse Oximetry 97 96 Oxygen Delivery Method Sepsis Recent Fever Within 48 Hours Sepsis New/Unexplained Change in Mental Status Sepsis Action Taken by Nursing 06/26/25 20:01 06/26/25 20:28 Temperature Temperature Source Pulse Rate 61 61 Pulse Rate from SpO2 Sensor Respiratory Rate 18 Blood Pressure 231/128 H Blood Pressure [Right Arm] Blood Pressure Mean 171 Blood Pressure Mean [Right Arm] Pulse Oximetry 96 Oxygen Delivery Method Sepsis Recent Fever Within 48 Hours Sepsis New/Unexplained Change in Mental Status Sepsis Action Taken by Nursing Laboratory Data 06/26/25 Unknown 06/26/25 Unknown Lab Results 06/26/25 06/26/25 06/26/25 Range/Units 16:00 17:04 19:28 POC Glucose 108 H (70-99) mg/dl Troponin I High Sens 52.4 H* (0-20) pg/ml B-Natriuretic Peptide 179 H (0-100) pg/ml Lyme Disease Screen Negative (Negative) Administered Medications Discontinued Medications Furosemide (Furosemide 40 Mg/4 Ml Vial) 40 mg IV ONE ONE Stop: 06/26/25 20:35 Last Admin: 06/26/25 21:23 Dose: 40 mg Documented By: NRB Hydralazine HCl (Hydralazine Hcl 20 Mg/Ml Vial) 10 mg IV NOW STA Stop: 06/26/25 20:35 Last Admin: 06/26/25 21:23 Dose: 10 mg Documented By: NRB Lorazepam (Lorazepam 1 Mg/1 Ml Syr Ed Inj Use) 1 mg IV ONE STA Stop: 06/26/25 20:08 Last Admin: 06/26/25 20:18 Dose: 1 mg Documented By: NRB Lorazepam (Lorazepam 2 Mg/1 Ml Vial) 1 mg IV NOW STA Stop: 06/26/25 21:50 Last Admin: 06/26/25 22:00 Dose: 1 mg Documented By: BRAYDEN Imaging Data Radiologist's Impression: Chest X-Ray 06/26/25 17:32 EXAM: Portable AP chest radiograph TECHNIQUE: AP portable radiograph of the chest was obtained. INDICATION: Shortness of breath Comparison: Chest radiograph February 12, 2025 FINDINGS: LINES and TUBES: None CARDIOVASCULAR: Cardiac silhouette is stable enlarged in size. Atherosclerosis of the thoracic aorta. LUNGS/PLEURA: Mild pulmonary vascular congestion is unchanged. Hazy bibasilar densities are also similar and may represent any combination of small layering pleural fluids, atelectasis as well as mild airspace disease. No discernible pneumothorax. OSSEOUS/OTHER: No displaced acute osseous process identified. IMPRESSION: Congestive changes of the cardiovascular system appears similar to the previous radiograph. Hazy bibasilar densities are again seen and may represent any combination of small layering pleural fluids, atelectasis as well as mild airspace disease. Electronically signed by Uriel Emmanuel 06-26-2025 6:[address] 06/26/25 17:32 EXAMINATION: Head CT without CLINICAL HISTORY: Confusion PRIORS: 02/12/2025 TECHNIQUE: Contiguous axial images were obtained through the head without the use of intravenous contrast. Sagittal and coronal reformations are supplied. FINDINGS: Age appropriate parenchymal volume is noted. Small vessel occlusive disease. Mcintyre-white differentiation is preserved. No edema or midline shift. No intra-axial or extra-axial hemorrhage. Ventricles unchanged in size and configuration. Brainstem and cerebellum have a normal appearance. Posterior fossa cyst. Calvarium unremarkable. Paranasal sinuses and mastoid air cells are well-pneumatized. Globes are intact. No retrobulbar abnormality. IMPRESSION: No CT evidence of an acute intracranial abnormality. Electronically signed by Ana Paula Burk 06-26-2025 6:08 PM Discharge Plan Visit Data Chief Complaint: Weakness Stated Complaint: tremors ED Provider: Zackery Grimm Discharge Problem: Confusion, Ambulatory dysfunction, Hypertension Condition: Serious Discharge Instructions Interventions: ED Discharge Assessment Last Done: 06/26/25 22:43
[2025-06-27] MEDS ORDERED: DOCUSATE SODIUM 100 MG CAP PO PRN (00:15)
[2025-06-27] MEDS ORDERED: MELATONIN 3 MG TAB PO PRN (00:15)
[2025-06-27] MEDS ORDERED: ACETAMINOPHEN 325 MG TAB PO PRN (00:15)
[2025-06-27] MEDS ORDERED: ONDANSETRON INJ 2 MG/ML 2 ML VIAL IV PRN (00:15)
[2025-06-27] MEDS: HYDROXYCHLOROQUINE SULFATE 200 MG TAB PO SCH (01:35)
[2025-06-27] MEDS: ENOXAPARIN INJ 40 MG/0.4 ML SYR SQ SCH (01:35)
[2025-06-27] MEDS: NORTRIPTYLINE HCL 10 MG CAP PO SCH (01:35)
[2025-06-27 06:57] LABS: Anion Gap 8.0 (3-11); Blood Urea Nitrogen 11.0 mg/dl (6-23); Calcium 9.9 mg/dl (8.6-10.3); Carbon Dioxide 34.0 mmol/L (21-32); Chloride 99.0 mmol/L (98-107); Creatinine Clr Calc Pharmacy 83.4 ml/min; Glucose 119.0 mg/dl (70-99(Fasting)); Magnesium 2.2 mg/dl (1.7-2.4); Potassium 3.5 mmol/L (3.5-5.1); Sodium 141.0 mmol/L (136-145)
[2025-06-27 07:05] LABS: Hematocrit (blood only) 51.9 % (42.0-52.0); Hemoglobin 17.2 g/dl (14.0-18.0); Immature Granulocytes # (auto) 0.06 K/uL (0.01-0.20); Immature Granulocytes % (auto) 0.5 %; Mean Corpuscular Hemoglobin 30.1 pg (25.0-34.0); Mean Corpuscular Volume 90.7 fL (80.0-100.0); Platelet Count 222 K/uL (130-400); RDW Standard Deviation 51.9 fL (36.4-46.3); Red Blood Count 5.72 M/uL (4.70-6.10); White Blood Count 13.20 K/ul (4.8-10.8)
[2025-06-27] MEDS: FELODIPINE 2.5 MG TABCR PO SCH (07:54)
--- NOTE | 2025-06-27 08:18 | Hospitalist Progress Note ---
Date of Service June 27, 2025 Assessment & Plan (1) Altered mental status: (2) Type 2 myocardial infarction due to arrhythmia: Plan In summary this is an 84-year-old male initially presented with progressive confusion and weakness with ambulation of unclear cause The patient's metabolic assessment thus far has been relatively unremarkable as far as contributing to his presenting confusion; his transient episode of bradycardia resulting in syncope may be related to his recurrent episodes of lower extremity weakness and inability to ambulate that has been increasing in frequency over the past several weeks per the patient's spouse's report who was present at bedside; his confusion may be consequential of persistent fatigue, there is not appear to be any metabolic nor infectious process that would be contributing to his confusion; the patient's blood pressure was noted to be elevated however not to the degree that is usually associated with hypertensive encephalopathy; Patient's troponin trend is not 1 consistent with ACS, is likely consequential of demand in the setting of his transient bradycardia -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, atrial fibrillation, mild cognitive impairment among other chronic me dical conditions who was admitted to [facility] on 06/26 due to progressive confusion and altered mental status with agitation of an unclear cause There are no acute overnight events; on the morning of 06/27 the patient did have a code purple due to symptomatic bradycardia resulting in a syncopal episode not requiring pharmacologic intervention directly however was found to have sustained atrial flutter with a bradycardic rhythm. Cardiology was consulted for further recommendations. Suspect that this may be presenting Review of Systems Review of Systems: There is limited review of systems available given the patient's distress and relative confusion however they denied chest pain, palpitations, lightheadedness, nausea, vomiting, hematemesis, anorexia, abdominal distention, altered bowel or bladder movement frequency; they did endorse discomfort periurethrally as there is a Tol[place] catheter in place Physical Exam Physical Exam: General: Elderly male in mild acute distress secondary to discomfort from [place] catheter Vital Signs: Reviewed HEENT: Tacky mucous membranes; extraocular motions intact; pupils equally round reactive to light Neck: [] Pulmonary: Symmetric chest wall rise without restrictions; lungs are clear to auscultation bilaterally Cardiovascular: Regular rate and rhythm without murmurs, rubs, or gallops; S1 and S2 normal; bilateral radial and posterior tibial pulse 2+; there is 1+ pitting edema distal of the knee bilaterally Genitourinary: [place] catheter in place with approximately 75 mL of blood-tinged urine output without appreciable sediment; bedside bladder scan has no evidence of a distal cystic obstruction with no apparent no urine accumulation in the bladder Results & Data Results & Data Vital Signs (Past 12 Hours) Vital Signs Temp Pulse Pulse Resp BP BP BP 06/27/25 07:48 36.4 C L 80 16 192/112 H 190/111 H 06/27/25 03:34 36.8 C 78 16 178/89 H 06/27/25 00:15 06/27/25 00:15 36.6 C 62 16 194/99 H 06/27/25 00:15 36.6 C 62 16 194/99 H 06/27/25 00:15 06/26/25 23:30 36.5 C 61 17 194/99 H 06/26/25 22:43 66 17 196/118 H 06/26/25 20:28 61 Pulse Ox Pulse Ox O2 Del Method O2 Del Method 06/27/25 07:48 96 Room Air 06/27/25 03:34 95 Room Air 06/27/25 00:15 Room Air 06/27/25 00:15 97 Room Air 06/27/25 00:15 97 Room Air 06/27/25 00:15 97 Room Air 06/26/25 23:30 97 Room Air 06/26/25 22:43 98 Room Air 06/26/25 20:28 Laboratory Results The patient has developed a mild leukocytosis of 13.2 increased from 10.6 at presentation; the patient's BMP is remarkable for a slightly elevated carbon dioxide of 34 from 32; there initial troponin at presentation was 54.2 with subsequent measures of 82.3, and most recent measure 103.6 PG Care Time/CCT Total # of Minutes Spent Total Time Spent with Patient: Total time spent is greater than 50% in coordination of care (as documented) at patient's floor/unit and/or counseling patient: Coding Level of Care Code 57630 SUB INP/OBS CARE 3/50MIN Diagnoses Delirium R41.0 Altered mental status type: delirium Type 2 myocardial infarction due to arrhythmia I49.9; I21.A1 (1) Altered mental status Altered mental status type: delirium Qualified Code(s): R41.0 - Disorientation, unspecified
--- NOTE | 2025-06-27 09:11 | Communication Note ---
Date of Service: June 27, 2025 Code purple was initiated due to the patient entering a sustained bradycardic rhythm with heart rate in the 30s to 40s and became unresponsive. The patient never lost pulses. Upon my arrival the patient's heart rate was in the 30s, mean arterial pressure of 55 mmHg, oxygen saturation 94% without supplemental oxygen. The patient was unresponsive initially, though slowly aroused with verbal stimuli. Heart was bradycardic with regular rhythm, no appreciable murmurs, rubs, or gallops; S1 and S2 were normal; lungs were clear to auscultation bilaterally with symmetric chest wall rise; trace bilateral lower extremity edema with brisk capillary refill. A/P: Symptomatic bradycardia, spontaneously resolved; EKG was obtained at bedside which, per my interpretation, revealed atrial flutter with bradycardia, there were no notable ischemic changes; given the patient's lack of a new oxygen requirement, and normal pulmonary exam, there is no indication for chest film at this time. Given the patient's borderline diminished potassium of 3.5, we will replace with potassium chloride 40 mill equivalents p.o. 2 times with reassessment on 06/28. Magnesium is still at goal greater than 2.0. He will remain in PCU, continuous cardiac telemetry. Cardiology will be consulted for recommendations regarding a possible intermittent bradycardic rhythm leading to his presentation with recurrent weakness, falls rather than the initially suspected neurologic cause.
[2025-06-27] MEDS: LIDOCAINE 2% JELLY 5 ML TUBE EXT ONE (09:25)
[2025-06-27] MEDS: POTASSIUM CHLORIDE CRTAB 20 MEQ TABCR PO SCH (09:25)
[2025-06-27] MEDS: LACTATED RINGER'S 1,000 ML IV SCH (16:30)
--- NOTE | 2025-06-27 17:58 | Cardiology Consultation ---
Date of Consultation June 27, 2025 Assessment & Plan (1) Unresponsive episode: (2) Elevated troponin: (3) Bradycardia: (4) Hypertension: (5) Confusion: (6) Ambulatory dysfunction: (7) Permanent atrial fibrillation: (8) Mitral regurgitation: Plan ASSESSMENT/PLAN: 1. Unresponsive episode/syncope: Etiology uncertain. Heart rate was in the 30s to 40s with possible junctional escape but otherwise underlying atrial fibrillation. Unclear if he choked on food as he had been eating which could have triggered a vagal event, or other potential trigger. Likely some degree of conduction disease as he is not required rate controlling medications with his atrial fibrillation. Continue telemetry. Recommend pacer pads in place and atropine available for symptomatic bradycardia. Dr. Macias of electrophysiology will be rounding over the weekend. Cannot exclude olanzapine from playing a role in his loss of consciousness this morning as he had received 2 mg of Ativan prior to midnight and then olanzapine a.m. earlier this morning before the event. 2. Atrial fibrillation: Permanent. Has not required rate controlling medications. Intermittent bradycardia. Urgent pacemaker not indicated. Monitor heart rates and for further syncope/symptomatic bradycardia, could consider pacemaker if deemed appropriate. He is not on anticoagulation therapy given recurrent GI bleeds while on anticoagulants in the past. Could consider Watchman device in the outpatient setting if deemed candidate and if he could tolerate antiplatelet therapy transiently. This conversation can be between he and his outpatient oil pump station operator chief. 3. Hypertension: History of labile hypertension. Blood pressure has consistently been elevated here but improved now compared to presentation. Continue current regimen for now and can slowly make further improvements to blood pressure so as not to abruptly drop his blood pressure. 4. Confusion and change in gait: Defer to primary hospitalist service and neurology. No obvious cardiac etiology. 5. Mitral regurgitation: Described as moderate in the past. Can repeat echo nonurgently. 6. Elevated troponin: Chronically elevated and just mildly above baseline, possibly due to his unresponsive episode or significant hypertension (demand ischemia). He did not present with acute coronary syndrome. Ischemic evaluation not necessary at this time. 7. Disposition: Cardiology will continue to follow. Patient signed out to Dr. Macias who will be rounding throughout the weekend. Please call on-call [facility] [place] cardiology with any questions or concerns. Patient care communicated with Dr. Guy of the primary hospitalist service. Thank you for allowing me to participate in the care of your patient. Please call for any other questions or concerns. Sincerely, Chetan Suero M.D. History of Present Illness Reason for Consultation: Transient bradycardia and syncope Requesting Physician: Edin Guy DO Attending Physician: Edin Guy DO History of Present Illness Mr. Rick is an 84-year-old gentleman with a history significant for permanent atrial fibrillation, recurrent gastritis/GI bleed (apparently with any anticoagulation or antiplatelet therapy), labile hypertension, rheumatoid arthritis, idiopathic polyneuropathy, and followed by neurology in the outpatient setting for cognitive issues. His primary oil pump station operator chief has been Dr. Parra (retired) and has since been seen by Mr. Symone GHOSH. He is a poor historian and often went off on tangents. His states that some of which he was saying this evening during our conversation was simply not true. She states that he has had confusion and memory issues more acutely since yesterday (06/26/2025). He was speaking gibberish and having hallucinations. According to some neurology notes from 2024, he has had cognitive impairment for several years but she notes a significant difference starting yesterday. She also has noted that his gait changed 4 days ago where he was shuffling his feet. The following day, his legs became quite tremulous when trying to walk but improved. 2 days ago, he was unable to stand and his legs were very wobbly when attempting to do so. While here, he had an episode of unresponsiveness at approximately 8:40 AM this morning according to nursing staff who was present. They found him with eggs around his mouth as he was eating breakfast but he was completely unresponsive but his heart rate was in the 30s to 40s on telemetry. A code purple was called but without specific intervention, he regained consciousness and his heart rate improved. He apparently had become agitated at times overnight and received 1 mg of Ativan at 2200 on 06/26/2025 and 1 mg at 2018 on 06/26/2025. He received a dose of olanzapine at 4:43 AM on 06/27/2025. He has not had any further syncopal episodes or loss of consciousness. His states that that is not a usual occurrence and that he has not had such issues. She denies and he agrees that he has not had any recent chest pain or shortness of breath. There has been no reported palpitations, worsening edema, melena, hematochezia, hematuria, nausea, vomiting, or fever. He has had labile hypertension over time and she quotes systolic blood pressures in the 250s in the past. She made a point to state that he has a very high IQ and has been very articulate with a wonderful memory over time, stating that this is a very big change for him more recently. Review of systems: As above. Family history: Noncontributory. Social history: Denies tobacco, alcohol, or drug abuse. Lives at home with his . Has 1 biologic daughter and 3 stepchildren. 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 His was present at the bedside. Allergies Allergy/AdvReac Type Severity Reaction Status Date / Time latex Allergy Intermediate Skin Verified 06/26/25 18:13 redness (with gloves) aspirin AdvReac Severe Bleeding Verified 06/26/25 18:13 NSAIDS (Non-Steroidal AdvReac Severe Bleeding Verified 06/26/25 18:13 Anti-Inflamma Home Medications Medication Instructions Recorded Confirmed Type folic acid 1 mg tablet 1 mg PO QAM 07/06/18 06/26/25 History methotrexate sodium 2.5 mg tablet 15 mg PO WK 06/28/19 06/26/25 History pantoprazole 40 mg tablet,delayed 40 mg PO QPM #90 tabs 09/30/24 06/26/25 Rx release (Protonix) lisinopril 40 mg tablet 40 mg PO QAM #90 tabs 01/02/25 06/26/25 Rx hydroxychloroquine 200 mg tablet 200 mg PO BID 01/21/25 06/26/25 History polyethylene glycol 3350 17 17 g PO QAM 02/12/25 06/26/25 History gram/dose oral powder (Miralax) felodipine 2.5 mg tablet,extended 2.5 mg PO DAILY #90 tabs 03/26/25 06/26/25 Rx release 24 hr oxycodone-acetaminophen 10 mg-325 1 tab PO Q6H PRN pain #120 tabs 06/04/25 06/26/25 Rx mg tablet (Percocet) nortriptyline 10 mg capsule 20 mg (2 x 10 mg) PO HS #60 caps 06/12/25 06/26/25 Rx Problem List (Updated 06/27/25 @ 19:16 by Ramón Suero MD) Mitral regurgitation Unresponsive episode Type 2 myocardial infarction due to arrhythmia Hypertension (Acute) Ambulatory dysfunction (Acute) Confusion (Acute) Elevated troponin Altered mental status Ambulatory dysfunction Hypertensive urgency Parkinson disease Leg edema Chronic insomnia COVID-19 (Acute) Permanent atrial fibrillation Not chronically anticoagulated d/t recurrent GI bleeding, follows with Dr. Parra Right knee pain IT band syndrome HTN (hypertension) (Acute) Rheumatoid arthritis H/O: GI bleed (Acute) Hx recurrent (several years ago) Cervical radiculopathy (Chronic) Cervical spondylosis (Chronic) lumbar Anxiety disorder (Chronic) Osteoarthritis of shoulders, bilateral (Chronic) Mild cognitive impairment (Acute) Depression with anxiety (Acute) Essential tremor Idiopathic polyneuropathy Urinary frequency (Acute) Tubular adenoma of colon (Acute) Trigger finger, acquired (Acute) Tinnitus of both ears (Acute) Sleep apnea (Acute) Shortness of breath (Acute) Sensorineural hearing loss (SNHL) of both ears (Acute) Lumbar radiculopathy (Acute) Labile hypertension (Acute) Insomnia (Acute) Hyperglycemia (Acute) Hip pain (Acute) GERD (gastroesophageal reflux disease) (Acute) Fatigue (Acute) Enlarged prostate (Acute) Edema (Acute) Dyspnea (Acute) Dyslipidemia (Acute) Disturbance of smell (Acute) Constipation (Acute) Chronic pain (Acute) Cerebral atherosclerosis (Acute) Carotid artery plaque (Acute) Benign prostatic hyperplasia with urinary obstruction (Acute) Asthma (Acute) Ankle pain, right (Acute) Left inguinal pain Permanent atrial fibrillation Benign skin lesion of forearm Arthralgia of both knees Anticoagulation management encounter Back pain 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 Bradycardia (Acute) Symptomatic bradycardia (Acute) Near syncope (Acute) Somnolence (Acute) Left knee DJD Status post total left knee replacement Constipation due to opioid therapy Lumbar spondylosis Herpes zoster Lower extremity weakness Trochanteric bursitis, left hip Left hamstring muscle strain Contusion of right arm Patient History Medical History Chronic idiopathic constipation 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, NYHA class 2 Demand ischemia of myocardium Encounter for pre-operative examination Encounter for pre-operative examination Right knee DJD Asthma Osteoarthritis Acid reflux Atrial flutter hx Surgical History History of total right knee replacement Hx of cataract surgery History of lumbar surgery H/O knee surgery Family History Father , age 66 of an [place] Myocardial infarction Mother , age 83 of dementia Alzheimer disease Uncle Cancer Denies family history of Ovarian cancer Prostate cancer Breast cancer Colorectal cancer Social History Smoking Status: Never smoker Second Hand Exposure: No; Do You Dip or Chew Tobacco: No; Hx Alcohol Use: No Hx Substance Use: No Preferred Language: Nepali Communication Ability: Impaired Visual Impairment: No Limitations Hearing Ability: Normal Filler Sifter Machine Required: No Beliefs That Will Affect Care: None marital status: Current Living Situation: Spouse current occupational status: retired Other Information That Helps Us Care for You: No other: 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 Alert. Tangential in conversation at times. HEENT: Anicteric sclera. Neck: No JVD. No bruits. Normal carotid upstrokes bilaterally. Cardiac: Irregularly irregular with normal rate. Normal S1-S2. 2/6 systolic murmur. Pulmonary: Clear to auscultation bilaterally without wheezes, rales, or rhonchi. Abdomen: Soft, nontender, nondistended, with normoactive bowel sounds. No bruits noted. Extremities: 2+ radial pulses bilaterally. 1+ posterior tibialis pulses bilaterally. Trace bilateral lower extremity edema. No cyanosis. Results & Data Vital Signs (Past 12 Hours) Vital Signs Temp Pulse Resp BP BP Pulse Ox O2 Del Method 06/27/25 12:41 67 16 179/90 H 93 Room Air 06/27/25 09:41 Room Air 06/27/25 07:48 36.4 C L 80 16 192/112 H 190/111 H 96 Room Air Laboratory Results Laboratory Results - last 24 hr 08/28/25 08/28/25 08/29/25 16:00 19:28 04:44 WBC RBC Hgb Hct MCV MCH MCHC RDW Std Deviation RDW Coeff of Ankit Plt Count MPV Immature Gran % (Auto) Neut % (Auto) Lymph % (Auto) [place] % (Auto) Eos % (Auto) Baso % (Auto) Neut # (Auto) Lymph # (Auto) [place] # (Auto) Eos # (Auto) Baso # (Auto) Immature Gran # (Auto) Sodium Potassium Chloride Carbon Dioxide Anion Gap BUN Creatinine Est Cr Clr Drug Dosing eGFR BUN/Creatinine Ratio Glucose Calcium Magnesium Troponin I High Sens 52.4 H* B-Natriuretic Peptide 179 H Anaplasma Smear Cancelled Babesia Smear Cancelled Babesia microti DNA PCR Pending Lyme Disease Screen Negative 06/27/25 06/27/25 06/27/25 05:43 08:54 14:57 WBC 13.20 H RBC 5.72 Hgb 17.2 Hct 51.9 MCV 90.7 MCH 30.1 MCHC 33.1 RDW Std Deviation 51.9 H RDW Coeff of Ankit 16.2 H Plt Count 222 MPV 10.9 Immature Gran % (Auto) 0.5 Neut % (Auto) 79.8 Lymph % (Auto) 8.3 [place] % (Auto) 9.8 Eos % (Auto) 1.1 Baso % (Auto) 0.5 Neut # (Auto) 10.55 H Lymph # (Auto) 1.09 L [place] # (Auto) 1.29 H Eos # (Auto) 0.15 Baso # (Auto) 0.06 Immature Gran # (Auto) 0.06 Sodium 141 Potassium 3.5 Chloride 99 Carbon Dioxide 34 H Anion Gap 8 BUN 11 Creatinine 0.81 Est Cr Clr Drug Dosing 83.4 eGFR 86.94 BUN/Creatinine Ratio 13.6 Glucose 119 H Calcium 9.9 Magnesium 2.2 Troponin I High Sens 65.4 H* D 82.3 H* D 103.6 H* D B-Natriuretic Peptide Anaplasma Smear See Comment Babesia Smear See Comment Babesia microti DNA PCR Lyme Disease Screen Diagnostic Findings ECG personally reviewed 06/27/2025 at 6:03 AM: Atrial fibrillation 76 bpm. Septal infarct. Chart reviewed. History and physical report reviewed. Labs reviewed and notable for elevated high-sensitivity troponin up to 103 (chronically elevated), mildly elevated BNP, stable renal function, normal potassium, normal magnesium, nonelevated transaminase levels, normal TSH, normal hemoglobin, mild leukocytosis. CT head 06/26/2025: No acute intracranial abnormality per radiology. Chest x-ray 06/26/2025: Stable findings compared to previous chest x-ray per radiology. Mild pulmonary vascular congestion reported. Outpatient cardiology note reviewed from 05/12/2025. Echo report reviewed 10/24/2024: Normal LV size, wall motion, systolic function. EF 55 to 60%. Moderate LVH. Moderate MR. Telemetry personally reviewed: Atrial fibrillation with normal heart rate this evening at the time of consultation in the 60s. At approximately 8:40 AM, heart rate appeared to be in the 30s to 40s with atrial fibrillation as the rhythm wit h possible competing junctional rhythm. There is no particularly long pause. Medications Administered Current Inpatient Medications Acetaminophen (Acetaminophen 325 Mg Tab) 650 mg PO Q4H PRN PRN Reason: Pain or Fever Stop: 07/27/25 00:14 Docusate Sodium (Docusate Sodium 100 Mg Cap) 100 mg PO BID PRN PRN Reason: Constipation Stop: 07/27/25 00:14 Enoxaparin Sodium (Enoxaparin Inj 40 Mg/0.4 Ml Syr) 40 mg SQ PM LIAT Stop: 07/27/25 00:14 Last Admin: 06/27/25 01:50 Dose: Not Given Hydroxychloroquine Sulfate (Hydroxychloroquine Sulfate 200 Mg Tab) 200 mg PO BID LIAT Stop: 07/27/25 00:14 Last Admin: 06/27/25 07:53 Dose: 200 mg Lactated Ringer's (Lr) 1,000 mls @ 110 mls/hr IV .Q9H6M LIAT Stop: 06/28/25 10:29 Last Admin: 06/27/25 16:30 Dose: 110 mls/hr Lisinopril (Lisinopril 40 Mg Tab) 40 mg PO QAM LIAT Stop: 07/27/25 08:59 Last Admin: 06/27/25 07:53 Dose: 40 mg Lorazepam (Lorazepam 2 Mg/1 Ml Vial) 1 mg IV Q8H PRN PRN Reason: Anxiety/Agitation Stop: 07/27/25 00:14 Melatonin (Melatonin 3 Mg Tab) 3 mg PO HS PRN PRN Reason: Sleep Stop: 07/27/25 00:14 Nifedipine (Nifedipine Extended Rel 30 Mg Tabcr) 30 mg PO QAM LIAT Stop: 07/28/25 08:59 Nortriptyline HCl (Nortriptyline Hcl 10 Mg Cap) 20 mg PO HS LIAT Stop: 07/27/25 00:14 Last Admin: 06/27/25 01:35 Dose: 20 mg Ondansetron HCl (Ondansetron Inj 2 Mg/Ml 2 Ml Vial) 4 mg IV Q6H PRN PRN Reason: Nausea And Vomiting Stop: 07/27/25 00:14 Oxycodone/Acetaminophen (Oxycodone/Acetaminophen 10-325 Tab) 1 tab PO Q6H PRN PRN Reason: pain Stop: 07/11/25 00:14 Pantoprazole Sodium (Pantoprazole 40 Mg Tab) 40 mg PO QPM LIAT Stop: 07/27/25 20:59 Potassium Chloride (Potassium Chloride Crtab 20 Meq Tabcr) 40 meq PO BID LIAT Stop: 07/27/25 09:06 Last Admin: 06/27/25 14:39 Dose: 40 meq PG Care Time/CCT Total # of Minutes Spent Total Time Spent with Patient: Total time spent is greater than 50% in coordination of care (as documented) at patient's floor/unit and/or counseling patient: Coding Level of Care Code 75518 INT INP/OBS CARE 3/75MIN Diagnoses Unresponsive episode R40.4 Elevated troponin R79.89 Bradycardia R00.1 Hypertension I10 Confusion R41.0 Ambulatory dysfunction R26.2 Permanent atrial fibrillation I48.21 Mitral regurgitation I34.0
--- NOTE | 2025-06-27 20:27 | Neurology Consultation ---
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 He has exhibited a persistent progressive disorder of gait and posture, has also developed some parkinsonian signs including hypophonia, masked facies, has some difficulty with visual tracking/ocular motility, and has notable midbrain atrophy on an MRI completed this past August. A dermal punch biopsy for alpha-synuclein was reportedly negative which would exclude classic Parkinson's disease as well as multiple system atrophy. 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 Although levodopa is sometimes helpful for PSP, a previous trial did not confer any benefit, would not recommend another trial at this time. I would avoid a trial of donepezil given his episode of bradycardia earlier this morning. There is no proven treatment for PSP. Would focus on supportive care, PT/OT/speech therapy However, given this patient's subacute change in neurological functioning, I would recommend obtaining an up-to-date brain MRI. Would like to exclude an acute or subacute stroke as well as any significant interval change in his midbrain atrophy as seen on his previous MRI in August. History of Present Illness Reason for Consultation: Altered mental status, tremor Requesting Physician: Oumar Attending Physician: Edin Guy, History of Present Illness The patient is an 84-year-old male who presented to the emergency department yesterday with confusion, worsening tremors, difficulty walking. I evaluated him with his spouse at bedside, she was the primary historian. She indicates that he has been exhibiting difficulty with his gait over the past year or so, his legs seem weak at time, episodes of leg tremor with prolonged standing. His movements have become progressively slow, his speech is soft at times. He has also exhibited some impairment of attention, poor memory, and often times make statements that do not make sense. He has been following with a specialist at [facility] for a possible underlying neurodegenerative condition. He apparently had a dermal punch biopsy to look for alpha-synuclein deposition in an attempt to assess for possible Parkinson's disease. This testing was reportedly negative. He has been observed to have a stooped posture, wide-based gait, decreased stride length. He was apparently given a trial of carbidopa levodopa which was not helpful. This medication was ultimately discontinued. He had an episode of unresponsiveness earlier this morning, with a heart rate in the 30s on telemetry at that time. He was seen by [facility] cardiology, etiology not entirely clear, possibly vasovagal event. He did have a CT of the head completed yesterday. I independently reviewed these images. There is age-related atrophy and chronic microvascular ischemic disease. There is an element of hydrocephalus ex vacuo. The imaging is not suggestive of NPH, however. He did have a brain MRI completed at [facility] in September 2024, I independently reviewed these images as well. No acute process, no chronic microhemorrhage. Age-related atrophy and chronic microvascular ischemic disease are observed. There is some midbrain atrophy with a probable hummingbird sign. There is some T2 hyperintensity within the patti as well, although not a definitive crossed bun sign. Allergies Allergy/AdvReac Type Severity Reaction Status Date / Time latex Allergy Intermediate Skin Verified 06/26/25 18:13 redness (with gloves) aspirin AdvReac Severe Bleeding Verified 06/26/25 18:13 NSAIDS (Non-Steroidal AdvReac Severe Bleeding Verified 06/26/25 18:13 Anti-Inflamma Home Medications Medication Instructions Recorded Confirmed Type folic acid 1 mg tablet 1 mg PO QAM 07/06/18 06/26/25 History methotrexate sodium 2.5 mg tablet 15 mg PO WK 06/28/19 06/26/25 History pantoprazole 40 mg tablet,delayed 40 mg PO QPM #90 tabs 09/30/24 06/26/25 Rx release (Protonix) lisinopril 40 mg tablet 40 mg PO QAM #90 tabs 01/02/25 06/26/25 Rx hydroxychloroquine 200 mg tablet 200 mg PO BID 01/21/25 06/26/25 History polyethylene glycol 3350 17 17 g PO QAM 02/12/25 06/26/25 History gram/dose oral powder (Miralax) felodipine 2.5 mg tablet,extended 2.5 mg PO DAILY #90 tabs 03/26/25 06/26/25 Rx release 24 hr oxycodone-acetaminophen 10 mg-325 1 tab PO Q6H PRN pain #120 tabs 06/04/25 06/26/25 Rx mg tablet (Percocet) nortriptyline 10 mg capsule 20 mg (2 x 10 mg) PO HS #60 caps 06/12/25 06/26/25 Rx Patient History Medical History Chronic idiopathic constipation 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, NYHA class 2 Demand ischemia of myocardium Encounter for pre-operative examination Encounter for pre-operative examination Right knee DJD Asthma Osteoarthritis Acid reflux Atrial flutter hx Surgical History History of total right knee replacement Hx of cataract surgery History of lumbar surgery H/O knee surgery Family History Father , age 66 of an [place] Myocardial infarction Mother , age 83 of dementia Alzheimer disease Uncle Cancer Denies family history of Ovarian cancer Prostate cancer Breast cancer Colorectal cancer Social History Smoking Status: Never smoker Second Hand Exposure: No; Do You Dip or Chew Tobacco: No; Hx Alcohol Use: No Hx Substance Use: No Preferred Language: Egyptian Communication Ability: Impaired Visual Impairment: No Limitations Hearing Ability: Normal Broadcast Director Operations Required: No Beliefs That Will Affect Care: None marital status: Current Living Situation: Spouse current occupational status: retired Other Information That Helps Us Care for You: No other: 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 [place] Feels Safe at Home: Yes Safety Concerns: Feels Safe At This Time Childhood Exposure to Second-Hand Smoke: Yes Dental Care, Regularly: Yes Physical Activity Frequency: 1-2 Times per Week Seatbelt Use: always Sunscreen Use: No Assistive Devices: Walker Review of Systems Review of Systems: Unobtainable due to cognitive status Exam (Neuro) Constitutional: well developed and + thin; no acute distress Eyes: normal visual fernandez by confrontation, PERRL and EOM intact bilaterally; no nystagmus Neurologic: Oriented to:: Person, Place and Time Memory: Remote Intact; negative Short Term Intact Attention: negative Span Intact or Concentration Intact Speech Fluency: Other (Hypophonia); negative Dysarthria Speech Aphasia: negative Aphasia Fund of Knowledge: Vocabulary; negative Current Events Cranial Nerves: Normal II, III, IV, , V, VII, VIII, IX, X, XI and XII Motor Strength: Normal Lower Extremities and Normal Upper Extremities Motor Tone: Normal Lower Extremities and Normal Upper Extremities Rigidity: None Muscle Bulk/Involuntary Movements: No Involuntary Movements and Muscle Atrophy Sensation: Light Touch Intact and Pain/Temperature Intact; negative Proprioception Intact Coordination: negative Dysdiadochokinesia or Finger- Nose Abnormal Deep Tendon Reflexes: Rt Triceps: 2+, Lt Triceps: 2+, Rt Biceps: 2+, Lt Biceps: 2+, Rt Brachioradialis: 2+, Lt Brachioradialis: 2+, Rt Patellar: 2+, Lt Patellar: 2+, Rt Ankle: 1+ and Lt Ankle: 1+ Special Tests: negative Babinski Present Results & Data Vital Signs (Past 12 Hours) Vital Signs Temp Pulse Resp BP BP Pulse Ox O2 Del Method 06/27/25 19:36 36.6 C 68 18 170/65 H 96 Room Air 06/27/25 12:41 67 16 179/90 H 93 Room Air 06/27/25 09:41 Room Air Laboratory Results WBC 13.20, hemoglobin 17.2, hematocrit 51.9, platelet count 222, sodium 141, potassium 3.5, BUN 11, creatinine 0.81, glucose 119, calcium 9.9, magnesium 2.2, AST 30, ALT 6, vitamin B12 298, TSH 2.999 Diagnostic Findings Electrocardiogram reveals atrial fibrillation, 76 bpm. Coding Level of Care Code 28228 INT INP/OBS CARE 75MIN Diagnoses PSP (progressive supranuclear palsy) G23.1 Time Spent (min) 90 Comment Total time includes patient contact, chart review, counseling, note preparation
--- NOTE | 2025-06-27 22:30 | Electrocardiogram Report ---
Test Reason : Blood Pressure : */* mmHG Vent. Rate : 54 BPM Atrial Rate : * BPM P-R Int : * ms QRS Dur : 86 ms QT Int : 452 ms P-R-T Axes : * -9 -18 degrees QTcB Int : 428 ms Atrial fibrillation with slow ventricular response Inferior infarct , age undetermined Abnormal ECG When compared with ECG of 12-Feb-2025 19:14, Inferior infarct is now Present T wave inversion now evident in Inferior leads Confirmed by Ramón Suero ([id number]) on 06/27/2025 10:30:33 PM Referred By: REFERRED SELF Confirmed By: Ramón Suero
--- NOTE | 2025-06-27 22:31 | Electrocardiogram Report ---
Test Reason : Blood Pressure : */* mmHG Vent. Rate : 76 BPM Atrial Rate : * BPM P-R Int : * ms QRS Dur : 86 ms QT Int : 406 ms P-R-T Axes : * 12 33 degrees QTcB Int : 456 ms Atrial fibrillation Septal infarct , age undetermined Abnormal ECG When compared with ECG of 26-Jun-2025 18:05, Criteria for Inferior infarct are no longer Present T wave inversion no longer evident in Inferior leads Confirmed by Ramón Suero ([id number]) on 06/27/2025 10:31:04 PM Referred By: REFERRED SELF Confirmed By: Ramón Suero
[2025-06-28] MEDS: ATROPINE SULFATE 0.1 MG/ML 10ML SYR IV ONE (05:30)
--- NOTE | 2025-06-28 08:03 | Hospitalist Progress Note ---
Date of Service June 28, 2025 Assessment & Plan (1) PSP (progressive supranuclear palsy): (2) Acute hyperactive delirium due to another medical condition: (3) Type 2 myocardial infarction due to arrhythmia: Plan In summary this is an 84-year-old male initially presented with progressive confusion and weakness with ambulation of unclear cause The patient's history was discussed further with the patient's spouse available at bedside; it appears he has had a progressive onset of parkinsonian-like symptoms over the past month to year, which led to his initial establishing with an outpatient neurologist. There was concern of possible Parkinson's disease given the primary emotion related symptomatology and the relative absence of cognitive impairment, though a nerve biopsy done in the outpatient setting did not reveal any evidence of Parkinson's disease. 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; neurology's note was reviewed in detail, their proposal of progressive supranuclear palsy as noted, MRI as they recommended is now ordered and pending on 06/28; based on the patient's symptoms prior to their acute decline earlier in the week of 06/22, their fast stage with respect to dementia would be approximately stage V however with their sudden step off of acute function, this would put them at stage VIb; the sudden drop up of their symptomatology may be consequential superimposed vascular dementia, there is evidence of chronic vas cular disease on the patient's CT obtained at the time of admission. MRI, as previously mentioned is currently pending. Initiation of carbidopa/levodopa by recommendation of neurology MRI pending Precautions regarding the patient's recurrent episodes of acute delirium during his hospitalization, likely consequential of frankly being hospitalized, in association with dementia; it is strongly advised to avoid benzodiazepines or antipsychotics in the acute setting unless absolutely necessary and the patient is absolutely unable to be reoriented with nonpharmacologic interventions. The patient spouse is asking to stay past the typical visiting hours in order to assist with this, which is very reasonable and appreciated; the patient was started on carbidopa levodopa, so at this time would not recommend pursuing a scheduled dose of another antipsychotic as they are already established on nortriptyline; if absolutely necessary pharmacologic intervention will be recommended with a low-dose of Zyprexa but only if the patient is exhibiting significant harm to himself or to nursing staff Admission and Anticipated Discharge Date Admission Date: June 26, 2025 Subjective Mr. 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 He is fatigued at bedside though participates mildly in discussion with his spouse present. Other than this facility he has few other complaints or concerns this morning and review of systems Review of Systems Review of Systems: Review of constitutional, cardiovascular, pulmonary, gastrointestinal, genitourinary systems was unremarkable; the patient had some trouble participating in a review of his neurologic symptoms however overall it seems he is experiencing no new symptoms at this time Physical Exam Physical Exam: General: Elderly male no acute distress Vital Signs: Reviewed HEENT: Tacky mucous membranes; extraocular motions intact; pupils equally round reactive to light Pulmonary: Symmetric chest wall rise without restrictions; lungs are clear to auscultation bilaterally Cardiovascular: Regular rate and rhythm without murmurs, rubs, or gallops; S1 and S2 normal; bilateral radial and posterior tibial pulse 2+; there is 1+ pitting edema distal of the knee bilaterally Neuro: Cranial nerves II through XII are grossly intact; there is bradykinesia present with finger tapping of the both upper extremities, as well as some cogwheel rigidity elicited with passive motion of the patient's wrists Results & Data Results & Data Vital Signs (Past 12 Hours) Vital Signs Pulse 06/27/25 22:00 61 PG Care Time/CCT Total # of Minutes Spent Total Time Spent with Patient: Total time spent is greater than 50% in coordination of care (as documented) at patient's floor/unit and/or counseling patient: Coding Level of Care Code 14680 SUB INP/OBS CARE 2/35MIN Diagnoses PSP (progressive supranuclear palsy) G23.1 Acute hyperactive delirium due to another medical condition F05 Type 2 myocardial infarction due to arrhythmia I49.9; I21.A1
--- NOTE | 2025-06-28 10:33 | Cardiology Progress Note ---
Date of Service June 28, 2025 Assessment & Plan (1) Unresponsive episode: (2) Elevated troponin: (3) Bradycardia: (4) Hypertension: (5) Confusion: (6) Ambulatory dysfunction: (7) Permanent atrial fibrillation: (8) Mitral regurgitation: Plan ASSESSMENT/PLAN: 1. Unresponsive episode/syncope: Etiology uncertain. While his heart rate was felt to be in the 30s, he does have atrial fibrillation and there was only a transient period of slow heart rate around the time this episode occurred. Unfortunately, no evaluation of blood pressure while he was unresponsive. Blood pressure has been quite high around that time. I think there is a dubious correlation between his heart rate and the unresponsive episode. Will continue to monitor him on telemetry while he is an inpatient. Cognitive status continues to be quite poor. Unclear if he would benefit from a pacemaker at this time given the questionable association between being unresponsive and low heart rate as well as his declining cognitive and clinical status. 2. Atrial fibrillation: Permanent. Not currently on systemic anticoagulation. I think we need to get a better assessment of his overall prognosis given his relatively rapid decline in cognitive status before recommending long-term treatment. 3. Hypertension: History of labile hypertension. Continued elevations currently. Avoid beta-blockers, diltiazem or verapamil. 5. Mitral regurgitation: Described as moderate in the past. No evidence of decompensated heart failure. No strong murmur on examination. Unclear if he be a good candidate for any intervention even if progressive. 6. Elevated troponin: Chronically elevated and just mildly above baseline, possibly due to his unresponsive episode or significant hypertension (demand ischemia). He did not present with acute coronary syndrome. Ischemic evaluation not necessary at this time. Will continue to monitor him on telemetry and reevaluate as his cognitive and clinical situation evolve. Admission and Anticipated Discharge Date Admission Date: June 26, 2025 Subjective The patient was conversant, but was confabulating at times and confused. He did answer some questions regarding symptoms and denied breathing trouble, dizziness, chest pain or sense of palpitation. Review of Systems Review of Systems: Unobtainable due to cognitive status Physical Exam Physical Exam: The patient is alert and oriented to person only. He did follow commands. HEENT: Pupils are equal and reactive to light and accommodation. Extraocular movements are intact. The sclerae are anicteric. Neuro: Cranial nerves intact Lungs: Clear to auscultation bilaterally. He has good air movement without use of accessory muscles. No rales wheezes or rhonchi. Cardiac: Irregular rhythm. Normal rate. No murmurs. Pulses: The patient has palpable radial pulses bilaterally that are equal in intensity Extremities: There was no evidence of hypoperfusion. There is no cyanosis or clubbing. There is no edema. Skin: I did not appreciate any rashes on examination today. Results & Data Vital Signs (Past 12 Hours) Vital Signs Temp Pulse Resp BP Pulse Ox O2 Del Method 06/28/25 09:18 36.6 C 88 19 158/105 H 97 Room Air Laboratory Results Abnormal Lab Results 06/27/25 14:57 Troponin I High Sens 103.6 H* D PG Care Time/CCT Total # of Minutes Spent Total Time Spent with Patient: Total time spent is greater than 50% in coordination of care (as documented) at patient's floor/unit and/or counseling patient: Coding Level of Care Code 02791 SUB INP/OBS CARE 2/35MIN Diagnoses Unresponsive episode R40.4 Elevated troponin R79.89 Bradycardia R00.1 Hypertension I10 Confusion R41.0 Ambulatory dysfunction R26.2 Permanent atrial fibrillation I48.21 Mitral regurgitation I34.0
[2025-06-28] MEDS: NIFEdipine EXTENDED REL 30 MG TABCR PO SCH (10:40)
--- NOTE | 2025-06-28 11:32 | Neurology Progress Note ---
Date of Service June 28, 2025 Assessment & Plan (1) PSP (progressive supranuclear palsy): Plan As described previously, I suspect this patient has progressive supranuclear palsy. In speaking with his spouse further, it sounds like the previous trial of carbidopa levodopa may have conferred some neurobehavioral or cognitive benefit. I would suggest that he retry this medication, I will place an order for a low-dose, one half of a 25/100 mg tablet taken 3 times per day. The dosage may be increased depending on his response. I will follow-up with results of up-to-date brain MRI when available, would still like to exclude an acute or subacute stroke or any significant interval change since his last MRI which was completed in September. I would avoid cholinesterase inhibitors such as donepezil or rivastigmine given his episode of bradycardia. This patient may follow-up with myself or an RAQUEL in neurology clinic in 2 to 3 weeks after discharge. Please call with any questions. Admission and Anticipated Discharge Date Admission Date: June 26, 2025 Subjective Follow-up regarding suspected progressive supranuclear palsy The patient is a bit more alert and appropriate this morning, his spouse is at bedside. As described previously, he has had a persistent progressive difficulty with gait, balance, tendency to lean to the right, poor postural control, mild bradykinesia, hypophonia, masked facies. No upper extremity pill- rolling resting tremor, negative dermal punch biopsy for office synucleinopathy which tends to exclude Parkinson's disease and multiple system atrophy. He had been treated for a few weeks with carbidopa levodopa, although he did not perceive much improvement in any particular motor symptoms, his spouse thinks his thinking was a bit clearer while on this medication. A brain MRI completed at [facility] this past September revealed generalized atrophy, midbrain atrophy, and chronic microvascular ischemic disease. The midbrain atrophy with a so-called "hummingbird sign" could potentially suggest progressive supranuclear palsy in the context of his persistent progressive neurologic symptoms. I do note, however, that he has intact vertical gaze. He did have some difficulty with visual tracking during my assessment of him yesterday, however. He is not tremulous or rigid, and again, does not have a pill-rolling resting tremor. He is a bit more alert and interactive, but still makes some nonsensical statements, he does not have aphasia, he is slightly perseverative at times. He is pleasant, cooperative, and appropriate. He does seem to have a tendency to lean off to the right while lying in bed. A CT of the head completed 2 days ago again revealed generalized atrophy with an element of hydrocephalus ex vacuo. Midbrain atrophy is appreciated on reformatted sagittal views. An up-to-date brain MRI has been ordered. Results & Data Vital Signs (Past 12 Hours) Vital Signs Temp Pulse Resp BP Pulse Ox O2 Del Method 06/28/25 09:18 36.6 C 88 19 158/105 H 97 Room Air Coding Level of Care Code 63296 SUB INP/OBS CARE 3/50MIN Diagnoses PSP (progressive supranuclear palsy) G23.1 Time Spent (min) 50 Comment Total time includes patient contact, chart review, counseling, note preparation
[2025-06-28] MEDS: CARBIDOPA/LEVODOPA 25/100MG TAB PO SCH (13:34)
--- NOTE | 2025-06-28 18:40 | Magnetic Resonance Report ---
EXAM: MRI of the brain without contrast EXAM REASON: TIA/CVA rule out COMPARISON: 06/26/2025 TECHNIQUE: Multisequence multiplanar MR imaging of the brain was performed without contrast. FINDINGS: There are no focal areas of restricted diffusion. There is moderate generalized atrophy and ventriculomegaly unchanged from the previous exam. There is no evidence of acute intracranial hemorrhage, mass effect or midline shift. The orbits and orbital contents are within normal limits. The major vascular flow voids are intact. IMPRESSION: Age-related generalized atrophy without evidence of acute intracranial abnormality. Electronically signed by Ariel Dawn 06-28-2025 6:39 PM
--- NOTE | 2025-06-29 07:17 | Hospitalist Progress Note ---
Date of Service June 29, 2025 Assessment & Plan (1) PSP (progressive supranuclear palsy): (2) Acute hyperactive delirium due to another medical condition: (3) Type 2 myocardial infarction due to arrhythmia: Plan In summary this is an 84-year-old male initially presented with progressive confusion and weakness with ambulation of unclear cause The patient's history was discussed further with the patient's spouse available at bedside; it appears he has had a progressive onset of parkinsonian-like symptoms over the past month to year, which led to his initial establishing with an outpatient neurologist. There was concern of possible Parkinson's disease given the primary emotion related symptomatology and the relative absence of cognitive impairment, though a nerve biopsy done in the outpatient setting did not reveal any evidence of Parkinson's disease. 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 Continue carbidopa/levodopa Consider initiation of low-dose nightly Zyprexa based on review of outpatient trials of antipsychotic and SSRI/SNRI therapies; would withhold this at this point in time given the initiation of carbidopa/levodopa MRI without evidence of infarct Precautions regarding the patient's recurrent episodes of acute delirium during his hospitalization, likely consequential of being hospitalized, in association with dementia; it is strongly advised to avoid benzodiazepines or antipsychotics in the acute setting unless absolutely necessary and the patient is absolutely unable to be reoriented with nonpharmacologic interventions. The patient spouse is asking to stay past the typical visiting hours in order to assist with this, which is very reasonable and appreciated; the patient was started on carbidopa levodopa, so at this time would not recommend pursuing a scheduled dose of another antipsychotic as they are already established on nortriptyline; if absolutely necessary pharmacologic intervention will be recommended with a low-dose of Zyprexa but only if the patient is exhibiting significant harm to himself or to nursing staff Admission and Anticipated Discharge Date Admission Date: June 26, 2025 Anticipated date of discharge: 07/01/25 Subjective Mr. 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, atrial fibrillation, mild cognitive impairment among other chronic medical conditions who was admitted to [facility] on 06/26 due to progressive confusion and altered mental status with agitation of an unclear cause Review of Systems Review of Systems: Review of constitutional, cardiovascular, pulmonary, gastrointestinal, genitourinary systems was unremarkable; the patient had some trouble participating in a review of his neurologic symptoms however overall it seems he is experiencing no new symptoms at this time Physical Exam Physical Exam: General: Elderly male no acute distress Vital Signs: Reviewed HEENT: Tacky mucous membranes; extraocular motions intact; pupils equally round reactive to light Pulmonary: Symmetric chest wall rise without restrictions; lungs are clear to auscultation bilaterally Cardiovascular: Regular rate and rhythm without murmurs, rubs, or gallops; S1 and S2 normal; bilateral radial and posterior tibial pulse 2+; there is 1+ pitting edema distal of the knee bilaterally Neuro: Cranial nerves II through XII are grossly intact; there is bradykinesia present with finger tapping of the both upper extremities, as well as some cogwheel rigidity elicited with passive motion of the patient's wrists Results & Data Results & Data Vital Signs (Past 12 Hours) Vital Signs Temp Pulse Resp BP BP Pulse Ox Pulse Ox 06/29/25 06:29 94 06/29/25 06:00 36.4 C L 72 22 182/81 H 94 06/28/25 20:19 36.3 C L 68 18 135/86 96 O2 Del Method O2 Del Method 06/29/25 06:29 Room Air 06/29/25 06:00 Room Air 06/28/25 20:19 Room Air Diagnostic Findings MRI obtained 06/29 does not show any acute or subacute infarct; pending a dditional review by neurology PG Care Time/CCT Total # of Minutes Spent Total Time Spent with Patient: Total time spent is greater than 50% in coordination of care (as documented) at patient's floor/unit and/or counseling patient: Coding Level of Care Code 69950 SUB INP/OBS CARE 2/35MIN Diagnoses PSP (progressive supranuclear palsy) G23.1 Acute hyperactive delirium due to another medical condition F05 Type 2 myocardial infarction due to arrhythmia I49.9; I21.A1
--- NOTE | 2025-06-29 10:15 | Cardiology Progress Note ---
Date of Service June 29, 2025 Assessment & Plan (1) Unresponsive episode: (2) Elevated troponin: (3) Bradycardia: (4) Hypertension: (5) Confusion: (6) Ambulatory dysfunction: (7) Permanent atrial fibrillation: (8) Mitral regurgitation: Plan ASSESSMENT/PLAN: 1. Unresponsive episode/syncope: Etiology uncertain. No additional arrhythmias on his telemetry. Still in rate controlled atrial fibrillation. 2. Atrial fibrillation: Permanent. Not currently on systemic anticoagulation. Appears to be a poor candidate for systemic anticoagulation overall. 3. Hypertension: History of labile hypertension. Continued elevations currently. Avoid beta-blockers, diltiazem or verapamil. 5. Mitral regurgitation: Described as moderate in the past. No evidence of decompensated heart failure. No strong murmur on examination. Unclear if he be a good candidate for any intervention even if progressive. 6. Elevated troponin: Chronically elevated and just mildly above baseline, possibly due to his unresponsive episode or significant hypertension (demand ischemia). He did not present with acute coronary syndrome. Ischemic evaluation not necessary at this time. It seems that his cognitive and functional status has declined significantly in the recent past. This seems to be his most pressing medical issue at this time. I do not think there is a pressing need for a pacemaker or if this would be beneficial at all. At this time we will defer any additional evaluation for permanent pacing until his neurologic symptoms improve or determination has been made regarding his care going forward. Admission and Anticipated Discharge Date Admission Date: June 26, 2025 Subjective This morning the patient answered some questions, but was generally confused and tangential. He specifically denied breathing trouble. He did have some pain that he reported on his left hip, but cannot be more specific. Review of Systems Review of Systems: Unobtainable due to cognitive status Physical Exam Physical Exam: The patient is alert and oriented to person only. He did follow commands. Very tangential and droned on about certain unrelated topics in a stream of conscious ness. HEENT: Pupils are equal and reactive to light and accommodation. Extraocular movements are intact. The sclerae are anicteric. Neuro: Cranial nerves intact Lungs: Clear to auscultation bilaterally. He has good air movement without use of accessory muscles. No rales wheezes or rhonchi. Cardiac: Irregular rhythm. Normal rate. No murmurs. Pulses: The patient has palpable radial pulses bilaterally that are equal in intensity Extremities: There was no evidence of hypoperfusion. There is no cyanosis or clubbing. There is no edema. Skin: I did not appreciate any rashes on examination today. Results & Data Vital Signs (Past 12 Hours) Vital Signs Temp Pulse Resp BP Pulse Ox Pulse Ox O2 Del Method 06/29/25 07:45 36.5 C 63 19 162/79 H 90 Room Air 06/29/25 06:29 94 06/29/25 06:00 36.4 C L 72 22 182/81 H 94 Room Air O2 Del Method 06/29/25 07:45 06/29/25 06:29 Room Air 06/29/25 06:00 PG Care Time/CCT Total # of Minutes Spent Total Time Spent with Patient: Total time spent is greater than 50% in coordination of care (as documented) at patient's floor/unit and/or counseling patient: Coding Level of Care Code 23530 SUB INP/OBS CARE 2/35MIN Diagnoses Unresponsive episode R40.4 Elevated troponin R79.89 Bradycardia R00.1 Hypertension I10 Confusion R41.0 Ambulatory dysfunction R26.2 Permanent atrial fibrillation I48.21 Mitral regurgitation I34.0
--- NOTE | 2025-06-29 12:53 | Neurology Progress Note ---
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 However, I do note that his vertical gaze has been preserved. He had a negative dermal punch biopsy for office synucleinopathy would exclude Parkinson's disease and multiple system atrophy. 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 There are no proven treatments for either of these neurodegenerative conditions. However, because he does have some parkinsonian features, I would recommend that he continue with the second trial of carbidopa levodopa as recommended. Would continue with one half of a 25/100 mg tablet taken 3 times per day. The dosage may be increased depending on response. I would avoid cholinesterase inhibitors to address his cognitive dysfunction given his episode of bradycardia/syncope. Going forward, memantine could be added as a cognitive enhancer. This patient may follow-up with myself or an RAQUEL in neurology clinic in 2 to 3 weeks after discharge. Please call with any questions. Admission and Anticipated Discharge Date Admission Date: June 26, 2025 Subjective Follow-up, suspected progressive supranuclear palsy Patient continues to exhibit some inattentiveness, mild confusion, impaired postural control. He had refused his levodopa this morning. He did complete the requested brain MRI yesterday, I independently reviewed these images. No evidence of acute or subacute stroke, no chronic microhemorrhage. 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 There is focal midbrain atrophy, and chronic small vessel ischemic disease. I did discuss his condition further with his spouse over the phone as she did contact the nurses station while I was evaluating him. I informed her of his MRI results and unwillingness to take levodopa at this morning. She did reiterate for me that he did seem to be a bit improved when he had taken the carbidopa levodopa previously, mostly with attention, and neurobehavioral aspects of his condition, rather than any improvement with his gait. Again, he did have a recent episode of syncope, unresponsiveness, has been following with cardiology, history of rate controlled atrial fibrillation. He was not considered an appropriate candidate for a pacemaker in the context of his underlying neurodegenerative condition. Results & Data Vital Signs (Past 12 Hours) Vital Signs Temp Pulse Resp BP Pulse Ox Pulse Ox O2 Del Method 06/29/25 10:04 Room Air 06/29/25 07:45 36.5 C 63 19 162/79 H 90 Room Air 06/29/25 06:29 94 06/29/25 06:00 36.4 C L 72 22 182/81 H 94 Room Air O2 Del Method 06/29/25 10:04 06/29/25 07:45 06/29/25 06:29 Room Air 06/29/25 06:00 PG Care Time/CCT Total # of Minutes Spent Total Time Spent with Patient: Total time spent is greater than 50% in coordination of care (as documented) at patient's floor/unit and/or counseling patient: Coding Level of Care Code 79917 SUB INP/OBS CARE 2/35MIN Diagnoses PSP (progressive supranuclear palsy) G23.1 Time Spent (min) 35 Comment Total time includes patient contact, chart review, counseling, note preparation
[2025-06-29] MEDS: OLANZAPINE 2.5 MG TAB PO SCH (19:55)
--- NOTE | 2025-06-30 07:26 | Hospitalist Progress Note ---
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 There was concern of possible Parkinson's disease given the primary emotion related symptomatology and the relative absence of cognitive impairment, though a nerve biopsy done in the outpatient setting did not reveal any evidence of Parkinson's disease. 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 Continue carbidopa/levodopa - Continue Namenda 5 mg p.o. daily Continue Zyprexa 2.5 mg p.o. at bedtime MRI without evidence of infarct Precautions regarding the patient's recurrent episodes of acute delirium during his hospitalization, likely consequential of being hospitalized, in association with dementia; it is strongly advised to avoid benzodiazepines or antipsychotics in the acute setting unless absolutely necessary and the patient is absolutely unable to be reoriented with nonpharmacologic interventions. The patient spouse is asking to stay past the typical visiting hours in order to assist with this, which is very reasonable and appreciated Pending determination of home health services prior to discharge Admission and Anticipated Discharge Date Admission Date: June 26, 2025 Subjective Mr. 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 Review of Systems Review of Systems: Review of constitutional, cardiovascular, pulmonary, gastrointestinal, ge nitourinary systems was unremarkable; the patient had some trouble participating in a review of his neurologic symptoms however overall it seems he is experiencing no new symptoms at this time Physical Exam Physical Exam: General: Elderly male no acute distress Vital Signs: Reviewed HEENT: Tacky mucous membranes; extraocular motions intact; pupils equally round reactive to light Pulmonary: Symmetric chest wall rise without restrictions; lungs are clear to auscultation bilaterally Cardiovascular: Regular rate and rhythm without murmurs, rubs, or gallops; S1 and S2 normal; bilateral radial and posterior tibial pulse 2+; there is 1+ pitting edema distal of the knee bilaterally Neuro: Cranial nerves II through XII are grossly intact; there is bradykinesia present with finger tapping of the both upper extremities, as well as some cogwheel rigidity elicited with passive motion of the patient's wrists Results & Data Results & Data Vital Signs (Past 12 Hours) Vital Signs Temp Pulse Resp BP Pulse Ox O2 Del Method O2 Del Method 06/30/25 06:00 Room Air 06/30/25 05:16 67 174/82 H 06/30/25 04:12 36.5 C 72 22 206/104 H 94 Room Air 06/29/25 23:58 36.5 C 72 18 148/86 H 97 Room Air 06/29/25 20:00 Room Air PG Care Time/CCT Total # of Minutes Spent Total Time Spent with Patient: Total time spent is greater than 50% in coordination of care (as documented) at patient's floor/unit and/or counseling patient: Coding Level of Care Code 84224 SUB INP/OBS CARE 2/35MIN Diagnoses PSP (progressive supranuclear palsy) G23.1 Acute hyperactive delirium due to another medical condition F05 Type 2 myocardial infarction due to arrhythmia I49.9; I21.A1 Shoulder AC Joint Injection Medication 2cc Kenalog: Details:: Risks and benefits of this procedure were reviewed with the patient and his spouse at bedside. Prior to the procedure, the patient's name, date of , and procedure site were confirmed. After mixing 2 cc of Kenalog and 1 cc of 1% Xylocaine without epinephrine, I located the left coracoid process inferior of the clavicle; palpating laterally, I located the joint space between the coracoid and head of the humerus. This area was marked, then cleaned with two alcohol swabs. The area was then treated with cooling spray for topical anesthesia. I then inserted the needle at the injection site following a lateral, posterior, and cephalad trajectory. The patient tolerated this well. Once fully inserted, aspiration did not yield any blood or serous fluid. I then injected the entire 3 cc mixture, which entered the joint space easily. The needle was than retracted, and an insignificant amount of blood was noted at the puncture site. After holding brief pressure, the area was hemostatic. The patient felt well, and vital signs were normal. A bandage was placed over the injection site.
[2025-06-30] MEDS: MEMANTINE HCL 5 MG TAB PO SCH (09:23)
[2025-06-30 10:03] LABS: Anion Gap 8.0 (3-11); Blood Urea Nitrogen 17.0 mg/dl (6-23); Calcium 9.5 mg/dl (8.6-10.3); Carbon Dioxide 27.0 mmol/L (21-32); Chloride 103.0 mmol/L (98-107); Creatinine Clr Calc Pharmacy 88.8 ml/min; Glucose 105.0 mg/dl (70-99(Fasting)); Potassium 3.5 mmol/L (3.5-5.1); Sodium 138.0 mmol/L (136-145)
[2025-06-30] MEDS: POTASSIUM CHLORIDE 20 MEQ/15 ML UDC PO SCH (11:11)
[2025-06-30] MEDS: ETHYL CHLORIDE AER PER SPRAY 100 ML CAN EXT ONE (17:47)
[2025-06-30] MEDS: TRIAMCINOLONE ACET 40 MG/ML VIAL IA ONE (17:47)
[2025-06-30] MEDS: LIDOCAINE 1% MPF 5 ML VIAL INJ ONE (17:47)
--- NOTE | 2025-06-30 21:53 | Communication Note ---
Date of Service: June 30, 2025 Attempted to call patient's family to get a clearer understanding of what "blood disorder" they were referring to, when they requested that the patient's enoxaparin be stopped. I called and left a message for the patient's . I suspect that the disorder they are referring to are pt's past GI bleeds when he was on anticoagulation due to his AFib. As this is typically a higher dose than that given for DVT prophylaxis, the patient's current dose of enoxaparin may not have the risk they are concerned about and so an attempt was made to discuss thi s with family.
--- NOTE | 2025-07-01 07:10 | Hospitalist Progress Note ---
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 The patient's history was discussed further with the patient's spouse available at bedside; it appears he has had a progressive onset of parkinsonian-like symptoms over the past month to year, Parkinsons Disease was ruled out by nerve biopsy within the past few weeks; with further discussion at bedside with the patient's spouse, it appears the patient has had some steady, slow cognitive decline in the past calendar year, this in conjunction with the patient's Parkinson-like symptomatology 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 daily Continue Zyprexa 2.5 mg p.o. at bedtime MRI without evidence of infarct Precautions regarding the patient's recurrent episodes of acute delirium during his hospitalization, likely consequential of being hospitalized, in association with dementia; it is strongly advised to avoid benzodiazepines or antipsychotics in the acute setting unless absolutely necessary and the patient is absolutely unable to be reoriented with nonpharmacologic interventions. The patient spouse is asking to stay past the typical visiting hours in order to assist with this, which is very reasonable and appreciated Given the patient's stage of dementia, associated comorbidities, frailty, and among other chronic medical conditions his passing in the upcoming 6 months would not be unexpected. For these reasons, and the degree of the patient's de mentia with sudden progression secondary to vascular dementia superimposed on Lewy body dementia, a discussion was had with family and the patient at bedside on 07/01 regarding potential courses of treatment, specifically regarding curative/aggressive management versus focusing on the patient's quality of life. The patient is of clear mind at the time of our discussion, able to teach back what we had discussed and is interested in pursuing the potential course of hospice. Case management has been notified of this interest, pending further evaluation at this time. Admission and Anticipated Discharge Date Admission Date: June 26, 2025 Subjective Mr. 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 Review of Systems Review of Systems: Review of constitutional, cardiovascular, pulmonary, gastrointestinal, genitourinary systems was unremarkable; the patient had some trouble participating in a review of his neurologic symptoms however overall it seems he is experiencing no new symptoms at this time Physical Exam Physical Exam: General: Elderly male no acute distress Vital Signs: Reviewed HEENT: Tacky mucous membranes; extraocular motions intact; pupils equally round reactive to light Pulmonary: Symmetric chest wall rise without restrictions; lungs are clear to auscultation bilaterally Cardiovascular: Regular rate and rhythm without murmurs, rubs, or gallops; S1 and S2 normal; bilateral radial and posterior tibial pulse 2+; there is 1+ pitting edema distal of the knee bilaterally Neuro: Cranial nerves II through XII are grossly intact; there is bradykinesia present with finger tapping of the both upper extremities, as well as some cogwheel rigidity elicited with passive motion of the patient's wrists Results & Data Results & Data Vital Signs (Past 12 Hours) Vital Signs Temp Pulse Pulse Resp BP Pulse Ox O2 Del Method 07/01/25 03:24 36.3 C L 75 20 166/85 H 97 Room Air 07/01/25 02:30 69 06/30/25 23:36 36.6 C 53 L 20 119/67 95 Room Air 06/30/25 21:58 Room Air 06/30/25 19:33 36.9 C 66 18 161/84 H 95 Room Air PG Care Time/CCT Total # of Minutes Spent Total Time Spent with Patient: Total time spent is greater than 50% in coordination of care (as documented) at patient's floor/unit and/or counseling patient: Coding Level of Care Code 31229 SUB INP/OBS CARE MIN Diagnoses PSP (progressive supranuclear palsy) G23.1 Lewy body dementia with behavioral disturbance G31.83; F02.818 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
--- NOTE | 2025-07-01 14:19 | Electrocardiogram Report ---
Test Reason : Blood Pressure : */* mmHG Vent. Rate : 48 BPM Atrial Rate : 48 BPM P-R Int : 192 ms QRS Dur : 90 ms QT Int : 500 ms P-R-T Axes : 84 28 43 degrees QTcB Int : 446 ms Poor data quality, interpretation may be adversely affected atrial fibrillation with slow ventricular response Abnormal ECG When compared with ECG of 27-Jun-2025 06:03, Vent. rate has decreased by 28 bpm Confirmed by Krish Macias ([id number]) on 07/01/2025 1:04:56 PM Referred By: REFERRED SELF Confirmed By: Krish Macias
[2025-07-02] MEDS: FOLIC ACID 1 MG TAB PO SCH (13:28)
[2025-07-02] MEDS ORDERED: HYDROXYCHLOROQUINE SULFATE 200 MG TAB PO PRN (16:25)
[2025-07-02 16:56] LABS: Hematocrit (blood only) 43.8 % (42.0-52.0); Hemoglobin 14.4 g/dl (14.0-18.0); Immature Granulocytes # (auto) 0.07 K/uL (0.01-0.20); Immature Granulocytes % (auto) 0.5 %; Mean Corpuscular Hemoglobin 30.1 pg (25.0-34.0); Mean Corpuscular Volume 91.4 fL (80.0-100.0); Platelet Count 243 K/uL (130-400); RDW Standard Deviation 51.1 fL (36.4-46.3); Red Blood Count 4.79 M/uL (4.70-6.10); White Blood Count 14.17 K/ul (4.8-10.8)
--- NOTE | 2025-07-02 17:00 | Hospitalist Progress Note ---
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 The patient's history was discussed further with the patient's spouse available at bedside; it appears he has had a progressive onset of parkinsonian-like symptoms over the past month to year, Parkinsons Disease was ruled out by nerve biopsy within the past few weeks; with further discussion at bedside with the patient's spouse, it appears the patient has had some steady, slow cognitive decline in the past calendar year, this in conjunction with the patient's Parkinson-like symptomatology 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 daily Continue Zyprexa 2.5 mg p.o. at bedtime MRI without evidence of infarct Precautions regarding the patient's recurrent episodes of acute delirium during his hospitalization, likely consequential of being hospitalized, in association with dementia; it is strongly advised to avoid benzodiazepines or antipsychotics in the acute setting unless absolutely necessary and the patient is absolutely unable to be reoriented with nonpharmacologic interventions. The patient spouse is asking to stay past the typical visiting hours in order to assist with this, which is very reasonable and appreciated Given the patient's stage of dementia, associated comorbidities, frailty, and among other chronic medical conditions his passing in the upcoming 6 months would not be unexpected. For these reasons, and the degree of the patient's de mentia with sudden progression secondary to vascular dementia superimposed on Lewy body dementia, a discussion was had with family and the patient at bedside on 07/01 regarding potential courses of treatment, specifically regarding curative/aggressive management versus focusing on the patient's quality of life. The patient is of clear mind at the time of our discussion, able to teach back what we had discussed and is interested in pursuing the potential course of hospice. Case management has been notified of this interest, pending further evaluation at this time. Unresponsive episode - apparent bradycardic unresponsive episode earlier in admission. Per cardiology review this was not thought to be related to bradycardia given he has had further bradycardia without unresponsiveness. Possibly started after choking, will review nursing notes more closely tomorrow? I feel it is safe to remove telemetry at this time. He may occasionally have a HR in the 40s but as long as asymptomatic this is not a reason to resume telemetry alone. ?Opiate withdrawal earlier in admission - family report improved cognitive function and hallucinations after restarting on percocet Rheumatoid arthritis restart on methotrexate and folic acid - I am unclear why this was held Potassium supplementation I am unclear on the reasons for this, will recheck his potassium and magnesium now to check he is not hyperkalemic, he is not on supplementation at home Constipation He takes MiraLAX daily at home, I am unclear why this was held on admission, will restart, he reports last BM 3 days ago but I am not sure how accurate this statement is given his memory issues VTE Prophylaxis - Lovenox initially declined by patient on repeated days due to concern for GI bleeding but he tolerated this after his hip operation and given his immobility Disposition - family considering discharge home with hospice at this time, given his complicated hospital course I'd like to observe him another night to make sure he is stable on his current medical regimen before declaring him medically stable for discharge, after which he will need everything set up for him at home. Admission and Anticipated Discharge Date Admission Date: June 26, 2025 Subjective Per daughter at bedside [place] is much improved with his altered mental status. Some of which was opiate withdrawal as his long time percocet was held for confusion. Now better now he is back on Percocet and. Unresponsive episode earlier in admission thought not to be related to his bradycardia episodes. Episode of asymptomtic NSVT today on monitor. Family and patient concerned about multiple medications. They are unclear why the methotrexate was held. Felodipne is usually taken at night. He takes the percocets regularly at home 3-4 times a day therefore they would prefer this scheduled especially in light of suspected opiate withdrawal earlier in admission. Physical Exam ENMT: Mouth: + dry oral mucous membranes Respiratory: normal respiratory effort, lungs clear to auscultation Cardiovascular: Rate/Rhythm: regular rate and + irregularly irregular Gastrointestinal (Abdomen): normal bowel sounds, soft, nontender, no hepatosplenomegaly Musculoskeletal: rheumatoid appearing hands without any acute swelling or redness of joints Neurologic: moves all extremities, awake and + confused (mildly confused at time with his medications) Psychiatric: Orientation: alert, oriented to person and oriented to place Results & Data Results & Data Vital Signs (Past 12 Hours) Vital Signs Temp Pulse Pulse Resp BP Pulse Ox O2 Del Method 07/02/25 14:31 66 07/02/25 11:28 36.7 C 59 L 18 144/83 H 97 Room Air 07/02/25 08:44 36.9 C 68 18 164/83 H 96 Room Air 07/02/25 07:30 58 L PG Care Time/CCT Total # of Minutes Spent Total Time Spent: 65 Total Time Spent with Patient: Total time spent is greater than 50% in coordination of care (as documented) at patient's floor/unit and/or counseling patient: Coding Level of Care Code 57029 SUB INP/OBS CARE 3/50MIN Diagnoses PSP (progressive supranuclear palsy) G23.1 Lewy body dementia with behavioral disturbance G31.83; F02.818 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
[2025-07-02 17:11] LABS: Anion Gap 4.0 (3-11); Blood Urea Nitrogen 25.0 mg/dl (6-23); Calcium 9.2 mg/dl (8.6-10.3); Carbon Dioxide 25.0 mmol/L (21-32); Chloride 105.0 mmol/L (98-107); Creatinine Clr Calc Pharmacy 74.9 ml/min; Glucose 120.0 mg/dl (70-99(Fasting)); Magnesium 2.1 mg/dl (1.7-2.4); Potassium 5.0 mmol/L (3.5-5.1); Sodium 134.0 mmol/L (136-145)
[2025-07-02] MEDS: POLYETHYLENE (MIRALAX) 17 GM PACK PO SCH (17:18)
[2025-07-03] MEDS: POLYETHYLENE (MIRALAX) 17 GM PACK PO ONE (17:01)
--- NOTE | 2025-07-03 18:23 | Hospitalist Progress Note ---
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 Not the main reason for admission per family, developed after admission, likely some hospital delirium initially, suspected made worse with lorazepam and possible opiate withdrawal Continue to fluctuate - worse today than yesterday but still much worse from baseline even yesterday - ?worse night sleep (doesn't explain why he was still off his baseline yesterday ?increased dose of Zyprexa last night (Zyprexa is new this admission) ?Sinemet started (historically this has helped his cognition) ?memantine (new this admission) ?hospital delirium. Low suspicion of percocet since this is a chronic medication he takes 3-4 times a day. Discussed possible LP with Dr Barreto but given multiple alternative much more likely reasons I don't see a need for this currently At this time we will stop new medications possibly causing his symptoms - memantine and Sinemet and monitor as inpatient Progressive supranuclear palsy with Lewy Body Dementia Diagnosed by neurology - see prior neurology notes Stop carbidopa/levodopa Stop Namenda 5 mg p.o. daily Continue Zyprexa 2.5 mg p.o. at bedtime MRI without evidence of infarct Precautions regarding the patient's recurrent episodes of acute delirium during his hospitalization, likely consequential of being hospitalized, in association with dementia; it is strongly advised to avoid benzodiazepines in the acute setting unless absolutely necessary and the patient is absolutely unable to be reoriented with nonpharmacologic interventions. The patient spouse is asking to stay past the typical visiting hours in order to assist with this, which is very reasonable and appreciated Given the patient's stage of dementia, associated comorbidities, frailty, and among other chronic medical conditions his passing in the upcoming 6 months would not be unexpected. For these reasons, and the degree of the patient's dementia with sudden progression secondary to vascular dementia superimposed on Lewy body dementia, a discussion was had with family and the patient at bedside on 07/01 regarding potential courses of treatment, specifically regarding curative/aggressive management versus focusing on the patient's quality of life. The patient is of clear mind at the time of our discussion, able to teach back what we had discussed and is interested in pursuing the potential course of hospice. Case management has been notified of this interest, pending further evaluation at this time. Unresponsive episode - apparent bradycardic unresponsive episode earlier in admission. Per cardiology review this was not thought to be related to bradycardia given he has had further bradycardia without unresponsiveness. Possibly started after choking, will review nursing notes more closely tomorrow? I feel it is safe to remove telemetry at this time. He may occasionally have a HR in the 40s but as long as asymptomatic this is not a reason to resume telemetry alone. ?Opiate withdrawal earlier in admission - family report improved cognitive function and hallucinations after restarting on percocet. Requested this is LIAT rather than PRN to stop this happening again. Unlikely cause of Rheumatoid arthritis Patient repeatedly refusion methotrexate due to confusion, will try to give him again today. Suspect WBC increased due to his RA but will repeat level tomorrow Potassium supplementation Discontinued Constipation Refused VTE Prophylaxis - Switch Lovenox to morning dose to help with delirium Disposition - planning home with hospice, possible home Monday Admission and Anticipated Discharge Date Admission Date: June 26, 2025 Subjective Patient appears much more confused today. Refused last nights medications and Zyprexa had to be changed to IM 5mg instead of getting PO 2.5mg. Reportedly woke up around 3am and generally had a poor night. No BM (refused MiraLAX yesterday but took this today). His family are very concerned about his ongoing confusion. This was not the reason he came to the ER and he only developed this only after being in the ER. Suspect much worse the next day due to benzodiazepine use although this does explain why lorazepam was used in the first place but reportedly he started to get agitated in the ER demanding to go home. Percocet was held due to his confusion and family feel he started to withdraw therefore PSP new diagnosis this admission. Discussed with Dr Barreto and Sinemet only started as family feel his cognition was better on this but not a strong indication to continue to take this. Physical Exam ENMT: Mouth: + dry oral mucous membranes Respiratory: normal respiratory effort, lungs clear to auscultation Cardiovascular: Rate/Rhythm: regular rate and + irregularly irregular Gastrointestinal (Abdomen): normal bowel sounds, soft, nontender, no hepatosplenomegaly Neurologic: moves all extremities, awake and + confused (mildly confused at time with his medications) Psychiatric: Orientation: alert, oriented to person and oriented to place; + not oriented to time Speech: + pressured speech Thought Process: + tangential thought process and + looseness of associations Results & Data Results & Data Vital Signs (Past 12 Hours) Vital Signs Temp Pulse Resp BP Pulse Ox O2 Del Method 07/03/25 15:27 36.4 C L 72 20 169/84 H 94 Room Air 07/03/25 11:34 36.6 C 61 20 177/73 H 97 Room Air 07/03/25 07:43 36.3 C L 78 20 182/95 H 97 Room Air PG Care Time/CCT Total # of Minutes Spent Total Time Spent: 60 Total Time Spent with Patient: Total time spent is greater than 50% in coordination of care (as documented) at patient's floor/unit and/or counseling patient: Coding Level of Care Code 07277 SUB INP/OBS CARE 3/50MIN Diagnoses PSP (progressive supranuclear palsy) G23.1 Lewy body dementia with behavioral disturbance G31.83; F02.818 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
[2025-07-03] MEDS: NIFEdipine EXTENDED REL 30 MG TABCR PO SCH (21:53)
[2025-07-04] MEDS: ENOXAPARIN INJ 40 MG/0.4 ML SYR SQ SCH (08:34)
[2025-07-04 08:54] LABS: Hematocrit (blood only) 45.5 % (42.0-52.0); Hemoglobin 15.5 g/dl (14.0-18.0); Immature Granulocytes # (auto) 0.05 K/uL (0.01-0.20); Immature Granulocytes % (auto) 0.4 %; Mean Corpuscular Hemoglobin 30.8 pg (25.0-34.0); Mean Corpuscular Volume 90.3 fL (80.0-100.0); Platelet Count 224 K/uL (130-400); RDW Standard Deviation 49.2 fL (36.4-46.3); Red Blood Count 5.04 M/uL (4.70-6.10); White Blood Count 13.08 K/ul (4.8-10.8)
[2025-07-04 09:07] LABS: Anion Gap 6.0 (3-11); Blood Urea Nitrogen 21.0 mg/dl (6-23); Calcium 9.5 mg/dl (8.6-10.3); Carbon Dioxide 27.0 mmol/L (21-32); Chloride 105.0 mmol/L (98-107); Creatinine Clr Calc Pharmacy 75.8 ml/min; Glucose 130.0 mg/dl (70-99(Fasting)); Potassium 4.1 mmol/L (3.5-5.1); Sodium 138.0 mmol/L (136-145)
--- NOTE | 2025-07-04 22:29 | Hospitalist Progress Note ---
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 Not the main reason for admission per family, developed after admission, likely some hospital delirium initially, suspected made worse with lorazepam and possible opiate withdrawal. Now continues to fluctuate which fits with ongoing hospital delirium but cannot rule out sinemet or memantine also contributing as even on good days he isn't back to his home baseline. Low suspicion of Percocet since this is a chronic medication he takes 3-4 times a day. Continue off sinemet and memantine - these can be started as an outpatient in a stepwise manner after he returns to his baseline. Progressive supranuclear palsy with Lewy Body Dementia Diagnosed by neurology - see prior neurology notes Continue off carbidopa/levodopa Continue off Namenda 5 mg p.o. daily Continue Zyprexa 2.5 mg p.o. at bedtime - could consider stopping this as outpatient but will continue for now MRI without evidence of infarct Precautions regarding the patient's recurrent episodes of acute delirium during his hospitalization, likely consequential of being hospitalized, in association with dementia; it is strongly advised to avoid benzodiazepines in the acute setting unless absolutely necessary and the patient is absolutely unable to be reoriented with nonpharmacologic interventions. The patient spouse is asking to stay past the typical visiting hours in order to assist with this, which is very reasonable and appreciated Given the patient's stage of dementia, associated comorbidities, frailty, and among other chronic medical conditions his passing in the upcoming 6 months would not be unexpected. For these reasons, and the degree of the patient's dementia with sudden progression secondary to vascular dementia superimposed on Lewy body dementia, a discussion was had with family and the patient at bedside on 07/01 regarding potential courses of treatment, specifically regarding curative/aggressive management versus focusing on the patient's quality of life. The patient is of clear mind at the time of that discussion, able to teach back what we had discussed and is interested in pursuing the potential course of hospice. Case management has been notified of this interest - pending discharge on hospice tomorrow. Unresponsive episode - apparent bradycardic unresponsive episode earlier in admission. Per cardiology review this was not thought to be related to bradycardia given he has had further bradycardia without unresponsiveness. He may occasionally have a HR in the 40s but as long as asymptomatic this is not a reason to resume telemetry alone. ?Opiate withdrawal earlier in admission - family report improved cognitive function and hallucinations after restarting on percocet. Requested this is LIAT rather than PRN to stop this happening again. Unlikely cause of ongoing delirium. Rheumatoid arthritis Patient repeatedly refusion methotrexate due to confusion. Suspect WBC increased due to his RA which appears stable with negative procalcitonin not consistent with infection Potassium supplementation Discontinued Constipation Continue daily MiraLAX VTE Prophylaxis - Switch Lovenox to morning dose to help with delirium Disposition - planning home with hospice tomorrow Admission and Anticipated Discharge Date Admission Date: June 26, 2025 Anticipated date of discharge: 07/05/25 Subjective Initially very confused this morning. Moved around 22:30 last night. Seen again in afternoon and was talking when no one was in the room. Seen again with and daughter around 7pm and appeared much less confused reportedly after having a nap. Physical Exam Constitutional: WD/WN, vitals as above Neurologic: moves all extremities, awake and + confused (in AM) Psychiatric: Orientation: alert, oriented to person and oriented to place; + not oriented to time Eye Contact: + fair eye contact Speech: + pressured speech Thought Process: + tangential thought process Hallucinations: + visual hallucinations Results & Data Results & Data Vital Signs (Past 12 Hours) Vital Signs Temp Pulse Resp BP Pulse Ox O2 Del Method 07/04/25 15:17 36.6 C 67 16 177/92 H 96 Room Air PG Care Time/CCT Total # of Minutes Spent Total Time Spent with Patient: Total time spent is greater than 50% in coordination of care (as documented) at patient's floor/unit and/or counseling patient: Coding Level of Care Code 12528 SUB INP/OBS CARE 2/35MIN Diagnoses PSP (progressive supranuclear palsy) G23.1 Lewy body dementia with behavioral disturbance G31.83; F02.818 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
[2025-07-05 00:08] VITALS: O2SAT 97
[2025-07-05 07:13] VITALS: BP 163/82; PULSE 58; RESP 18; TEMP 97.7
--- NOTE | 2025-07-05 10:23 | Neurology Progress Note ---
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 His prominent gait and postural control difficulty could be seen in either progressive supranuclear palsy or corticobasal degeneration, these conditions are tauopathies and would have a negative dermal punch biopsy. His midbrain atrophy identified on MRI could suggest PSP. I do note, however, that he has intact vertical gaze. Impairment of vertical gaze is often a characteristic of PSP, however, its absence is not exclusionary. I do note that he has had some hospital-acquired delirium and hallucinations and possible [place]as delusions where he does not recognize family members and thinks they have been replaced by impostors. Lewy body dementia may not be excluded in spite of the negative dermal punch biopsy. Would continue to avoid dopaminergic treatments such as levodopa or dopamine agonists. May continue with low-dose Zyprexa, seems to be tolerating well. History of intolerance to donepezil. May remain off memantine at this time as well. Continue supportive medical care. Patient may follow-up with me in clinic in 2 to 3 weeks after discharge. Admission and Anticipated Discharge Date Admission Date: June 26, 2025 Subjective Follow-up, suspected progressive supranuclear palsy versus other neurodegenerative condition Patient has not tolerated a recent trial of Sinemet and Namenda, these medications are currently on hold, history of intolerance to cholinesterase inhibitors noted. Patient evaluated with his family at bedside. He is currently pleasant, cooperative, mildly confused and speaks off topic. No abnormal movements observed. History of chronic progressive gait and postural control difficulty, tendency to list to the right. Has had some hospital- acquired delirium, hallucinations. Currently receiving Zyprexa, low-dose at bedtime, seems to be tolerating well, no extrapyramidal movements or parkinsonism. Results & Data Vital Signs (Past 12 Hours) Vital Signs Temp Pulse Resp BP Pulse Ox O2 Del Method 07/05/25 07:13 36.5 C 58 L 18 163/82 H 97 Room Air 07/05/25 00:08 36.9 C 55 L 16 167/94 H 97 Room Air Diagnostic Findings I independently reviewed patient's brain MRI, there is generalized atrophy, hydrocephalus ex vacuo, notable midbrain atrophy observed on sagittal and axial views as well. No acute process. Exam (Neuro) Neurologic: Oriented to:: Person and Place; negative Time Memory: Remote Intact; negative Short Term Intact Attention: Span Intact; negative Concentration Intact Speech Fluency: negative Dysarthria or Dysfluency Speech Aphasia: negative Aphasia Fund of Knowledge: Past History and Vocabulary Cranial Nerves: Normal II, III, IV, , V, VII, VIII, IX, X, XI and XII Motor Strength: Normal Lower Extremities and Normal Upper Extremities Rigidity: None Muscle Bulk/Involuntary Movements: negative Pill Rolling Tremor or Rest Tremor (Arm) Coding Level of Care Code 69392 SUB INP/OBS CARE 2/35MIN Diagnoses PSP (progressive supranuclear palsy) G23.1 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
== END 2025-07-05 13:00 | disposition hospice, home (50) | DRG 56 ==
LOC: ED 16:27 → 4W 21:12 → SUATTDRO 21:12 → 4W 22:43 → 3E 07-03 22:22